=== PATIENT | male | born 1955 | race African-American/Black ===

== ENCOUNTER 2016-12-14 09:45 | Inpatient (IN) | payer OTHER ==
[2016-12-14] MEDS ORDERED: IPRATROPIUM/ALBUTEROL 0.5-2.5 MG/3 ML AMPUL NEB ONE (10:23)
[2016-12-14] MEDS ORDERED: METHYLPREDNISOLONE INJ 125 MG/2 ML SDV IV ONE (10:28)
[2016-12-14] MEDS ORDERED: NORMAL SALINE 1000 ML 1,000 ML IV ONE ×2 (10:28→14:13)
[2016-12-14 10:41] LABS: HEMATOCRIT 38.6 % (37.9-51.0); HEMOGLOBIN 13.1 g/dL (13.5-17.0); HGB HCT DIFFERENCE 0.7; MEAN CORPUSCULAR HEMOGLOBIN 33.2 pg (27.0-33.4); MEAN CORPUSCULAR HGB CONC 33.9 g/dL (32.0-36.0); MEAN CORPUSCULAR VOLUME 98 fl (80-97); RED BLOOD COUNT 3.95 10^6/uL (4.35-5.55); RED CELL DISTRIBUTION WIDTH 14.2 % (11.5-14.0); WHITE BLOOD COUNT 2.9 10^3/uL (4.0-10.5)
[2016-12-14 10:42] LABS: PROTHROMBIN TIME 13.8 SEC (11.4-15.4)
[2016-12-14 11:01] LABS: VENOUS BLOOD BASE EXCESS -2.3 mmol/L; VENOUS BLOOD HCO3 24.4 mmol/L (20-32); VENOUS BLOOD PH 7.32 (7.30-7.42)
[2016-12-14] MEDS ORDERED: NORMAL SALINE 1000 ML 1,000 ML IV PRN (11:16)
[2016-12-14] MEDS ORDERED: LEVOFLOXACIN 500 MG/D5W RTU 100 ML IV ONE (11:18)
[2016-12-14 11:22] LABS: ALANINE AMINOTRANSFERASE 27 U/L (21-72); ALBUMIN 3.5 g/dL (3.5-5.0); ALKALINE PHOSPHATASE 45 U/L (38-126); ASPARTATE AMINO TRANSFERASE 81 U/L (17-59); BILIRUBIN,TOTAL 0.6 mg/dL (0.2-1.3); BLOOD UREA NITROGEN 57 mg/dL (7-20); CARBON DIOXIDE 21 mmol/L (22-30); CHLORIDE 100 mmol/L (98-107); CREATINE KINASE 42 U/L (55-170); CREATININE RESULT 3.96 mg/dL (0.52-1.25); GLUCOSE 93 mg/dL (75-110); MAGNESIUM 1.5 mg/dL (1.6-2.3); POTASSIUM 4.7 mmol/L (3.6-5.0); SODIUM 140.9 mmol/L (137-145)
[2016-12-14 11:23] LABS: TROPONIN I < 0.012 ng/mL
[2016-12-14 11:24] LABS: TOTAL CELLS COUNTED 100
[2016-12-14 11:25] LABS: BAND NEUTROPHILS % (MANUAL) 22 % (3-5); BASOPHILS % (MANUAL) 0 % (0-2); LYMPHOCYTES % (MANUAL) 16 % (13-45)
[2016-12-14 11:26] LABS: ANION GAP 20 (5-19)
[2016-12-14 11:27] LABS: EOSINOPHILS % (MANUAL) 1 % (0-6)
[2016-12-14 11:30] LABS: PLATELET CLUMPS PRESENT; ROULEAUX SLIGHT; TOXIC GRANULATION 2+; TOXIC VACUOLATION PRESENT
[2016-12-14 11:31] LABS: POLYCHROMASIA SLIGHT
--- NOTE | 2016-12-14 11:52 | ER Document Report ---
ED General - General Chief Complaint: Shortness Of Breath Stated Complaint: CHEST PAIN TRAVEL OUTSIDE OF THE [place] IN LAST 30 DAYS: No - HPI Patient complains to provider of: short of breath chest pain Notes: Patient coming in for complaint short of breath and chest pain. Patient states short of breath the last 4 days. Denies fevers chills nausea vomiting states he is having a productive sputum. Patient doesn't do to still using marijuana and cocaine states cocaine use yesterday. Patient states chest pain substernal ongoing for the last few days well. Patient denies any recent antibiotics denies any recent travel. Patient states chest pain right-sided. Sputum yellow. No sick contacts. Patient increased respiratory rate hypoxic upon EMS arrival currently is on nonrebreather the tachycardia as well - Related Data Allergies/Adverse Reactions: No Known Allergies Allergy (Verified 09/11/16 00:56) Home Medications: Current Home Medications Albuterol Sulfate [Proair Respiclick] 1 puff IH Q4HP PRN 12/14/16 [History] Amlodipine Besylate [Norvasc 10 mg Tablet] 10 mg PO DAILY 12/14/16 [History] Folic Acid [Folvite 1 mg Tablet] 1 mg PO DAILY 12/14/16 [History] Ibuprofen [Motrin 600 mg Tablet] 600 mg PO TID 12/14/16 [History] Multivitamin [Multivitamins] 1 each PO DAILY 12/14/16 [History] Risperidone [Risperdal] 1 mg PO QHS 12/14/16 [History] Risperidone [Risperdal] 2 mg PO QAM 12/14/16 [History] Sertraline HCl [Zoloft] 50 mg PO QAM 12/14/16 [History] Thiamine HCl [Thiamine 100 mg Tablet] 100 mg PO DAILY 12/14/16 [History] Past Medical History - Social History Smoking Status: Smoker,Current Status Unk Family History: Reviewed & Not Pertinent - Past Medical History Cardiac Medical History: Reports: Hx Hypertension Neurological Medical History: Reports: Hx Cerebrovascular Accident Musculoskeltal Medical History: Reports Hx Gout Psychiatric Medical History: Reports: Hx Post Traumatic Stress Disorder Past Surgical History: Reports: Hx Orthopedic Surgery - shoulder, knee, ankle - Immunizations Immunizations up to date: Yes Hx Diphtheria, Pertussis, Tetanus Vaccination: Yes Review of Systems - Review of Systems Constitutional: No symptoms reported EENT: No symptoms reported Cardiovascular: Chest pain Respiratory: Cough, Short of breath, Wheezing Gastrointestinal: No symptoms reported Genitourinary: No symptoms reported Male Genitourinary: No symptoms reported Musculoskeletal: No symptoms reported Skin: No symptoms reported Hematologic/Lymphatic: No symptoms reported Neurological/Psychological: No symptoms reported -: Yes All other systems reviewed and negative Physical Exam - Vital signs Vitals: Resp Pulse Ox 36 H 89 L 12/14/16 09:57 12/14/16 09:57 Interpretation: Tachycardic, Hypoxic, Tachypneic - General General appearance: Appears well, Alert In distress: Moderate - HEENT Head: Normocephalic, Atraumatic Eyes: Normal Pupils: PERRL - Respiratory Respiratory status: Respiratory distress - mod Chest status: Nontender Breath sounds: Decreased air movement, Rhonchi Chest palpation: Normal - Cardiovascular Rhythm: Regular Heart sounds: Normal auscultation Murmur: No - Abdominal Inspection: Normal Distension: No distension Bowel sounds: Normal Tenderness: Nontender Organomegaly: No organomegaly - Back Back: Normal, Nontender - Extremities General upper extremity: Normal inspection, Nontender, Normal color, Normal ROM , Normal temperature General lower extremity: Normal inspection, Nontender, Normal color, Normal ROM , Normal temperature, Normal weight bearing - Neurological Neuro grossly intact: Yes Cognition: Normal Orientation: AAOx4 Reinier Coma Scale Eye Opening: Spontaneous Chase Coma Scale Verbal: Oriented Chase Coma Scale Motor: Obeys Commands Chase Coma Scale Total: 15 Speech: Normal Motor strength normal: LUE, RUE, LLE, RLE Sensory: Normal - Psychological Associated symptoms: Normal affect, Normal mood - Skin Skin Temperature: Warm Skin Moisture: Dry Skin Color: Normal Course - Re-evaluation Re-evalutation: 12/14/16 18:26 Patient arrived and restarted stress. We try to wean the patient off of a nonrebreather to nasal cannula however this was unsuccessful place patient on BiPAP. Patient's respiratory rate still continued to stay increased his VBG did not show much improvement therefore discussed with patient at bedside recommend intubation at this time for his sepsis and pneumonia. Intubation was performed without difficulty. After which patient did become very tachycardic hypertensive patient was started on a propofol drip given pain medications this was then transitioned to the visit as a pain drip patient did respond much better to this. Antibiotics were ordered Levaquin was started discussed with hospitalist. Hospital's adult other antibiotics patient will be admitted for further evaluation. - Vital Signs Vital signs: Temp Pulse Resp BP Pulse Ox 26 H 128/84 H 100 12/14/16 17:46 12/14/16 17:46 12/14/16 17:46 - Laboratory Result Diagrams: 12/14/16 10:05 12/14/16 10:05 Laboratory results interpreted by me: 12/14/16 12/14/16 12/14/16 10:05 10:05 10:05 WBC 2.9 L RBC 3.95 L Hgb 13.1 L MCV 98 H RDW 14.2 H Band Neutrophils % 22 H Metamyelocytes % 3 H Myelocytes % 1 H D-Dimer 3.90 H Carbonic Acid ABG pCO2 ABG pO2 ABG HCO3 ABG Total CO2 ABG O2 Saturation Carbon Dioxide 21 L Anion Gap 20 H BUN 57 H Creatinine 3.96 H Est GFR ( Amer) 19 L Est GFR (Non-Af Amer) 16 L Lactic Acid Magnesium 1.5 L AST 81 H Creatine Kinase 42 L 12/14/16 12/14/16 10:05 12:00 WBC RBC Hgb MCV RDW Band Neutrophils % Metamyelocytes % Myelocytes % D-Dimer Carbonic Acid 0.87 L ABG pCO2 28.8 L ABG pO2 41.9 L ABG HCO3 18.1 L ABG Total CO2 19.0 L ABG O2 Saturation 79.2 L Carbon Dioxide Anion Gap BUN Creatinine Est GFR ( Amer) Est GFR (Non-Af Amer) Lactic Acid 4.8 H Magnesium AST Creatine Kinase Procedures - Central Line Left Internal jugular Consent obtained: Yes - emergent verbal Central line pre-insertion: Sterile PPE donned, Chloraprep applied, Sterile drapes applied Central line lumen type: Triple Anesthetic type: 1% Lidocaine mL's of anesthesia: 2 Ultrasound guided: Yes CM at insertion site: 20 Line secured with sutures: Yes Central line post-insertion: Blood return from lumens, Biopatch applied, Sutured , Sterile dressing applied, Position confirmed w/ CXR Number of attempts: 1 Complications: No - Intubation Orotracheal Airway evaluation: Other - Missing jagged teeth Mallampati Classification: Class 2 Medications: Etomidate, Succinylcholine Intubation method: Orotracheal Blade size: 4 Equipment used: Glidescope ETT size: 8.0 ETT secured at (cm): 23 Breath Sounds after Intubation: Equal Ventilator settings: SIMV Tidal volume: 450 FiO2: 70 Respirations: 14 Pressure support: 10 PEEP: 5 Post Intubation Xray: Yes Intubation Complications: No complications Critical Care Note - Critical Care Note Total time excluding time spent on procedures (mins): 90 Comments: Time spent actively managing patient managing ventilator settings managing sedation drips inpatient with respiratory failure sepsis Discharge - Discharge Clinical Impression: History of cocaine abuse, Acute respiratory failure with hypoxia, Cocaine abuse Pneumonia Qualifiers: Pneumonia type: due to unspecified organism Laterality: right Lung location: lower lobe of lung Qualified Code(s): J18.1 - Lobar pneumonia, unspecified organism Sepsis Qualifiers: Sepsis type: sepsis due to unspecified organism Qualified Code(s): A41.9 - Sepsis, unspecified organism Acute renal failure Qualifiers: Acute renal failure type: unspecified Qualified Code(s): N17.9 - Acute kidney failure, unspecified Condition: Fair Disposition: ADMITTED INPATIENT [facility] Unit Admitted: ICU
[2016-12-14 12:46] LABS: ARTERIAL BLOOD BASE EXCESS -4.9 mmol/L; ARTERIAL BLOOD O2 SATURATION 79.2 % (94-98)
[2016-12-14] MEDS ORDERED: ALBUTEROL SULFATE 0.083% NEB 2.5 MG/3 ML AMPUL NEB PRN (13:15)
[2016-12-14] MEDS ORDERED: 1/2 NORMAL SALINE 1,000 ML IV PRN (13:15)
[2016-12-14] MEDS ORDERED: ETOMIDATE INJ/PF 20 MG/10 ML SDV IV ONE (13:26)
[2016-12-14] MEDS ORDERED: LORAZEPAM INJ 2 MG/1 ML VIAL ONE (13:29)
[2016-12-14] MEDS ORDERED: ACETAMINOPHEN 325 MG TABLET NG PRN (13:31)
[2016-12-14] MEDS ORDERED: PROPOFOL 100 ML IV ONE (13:32)
[2016-12-14] MEDS ORDERED: PROPOFOL 100 ML IV PRN (13:36)
--- NOTE | 2016-12-14 13:43 | EKG REPORT ---
SEVERITY:- BORDERLINE ECG - SINUS TACHYCARDIA LA ABNORMALITY : Confirmed by: Cirilo Smith MD 14-Dec-2016 13:43:18
[2016-12-14] MEDS ORDERED: PHARMACY COMMUNICATION ORDER MC NR (13:45)
[2016-12-14] MEDS ORDERED: MORPHINE SULFATE 10 MG/ML INJ ONE (13:54)
[2016-12-14 13:57] LABS: APPEARANCE,URINE SLIGHTLY-CLOUDY; BILIRUBIN,URINE NEGATIVE (NEGATIVE); GLUCOSE, URINE NEGATIVE (NEGATIVE); KETONES,URINE NEGATIVE (NEGATIVE); LEUKOCYTE ESTERASE,URINE NEGATIVE (NEGATIVE); NITRITE,URINE NEGATIVE (NEGATIVE); PROTEIN,URINE 100 mg/dL (NEGATIVE); URINE SPECIFIC GRAVITY 1.013; UROBILINOGEN,URINE NEGATIVE mg/dL (<2.0)
[2016-12-14] MEDS ORDERED: MORPHINE SULFATE 10 MG/ML INJ IV ONE ×2 (14:13→14:18)
[2016-12-14 14:36] LABS: URINE BARBITURATES SCREEN NEGATIVE; URINE METHADONE SCREEN NEGATIVE; URINE OPIATES LOW NEGATIVE; URINE PHENCYCLIDINE SCREEN NEGATIVE
[2016-12-14] MEDS ORDERED: ROCURONIUM BROMIDE INJ 50 MG/5 ML VIAL IV ONE (14:41)
[2016-12-14] MEDS: IPRATROPIUM/ALBUTEROL 0.5-2.5 MG/3 ML AMPUL NEB SCH ×2 (14:42→20:04)
[2016-12-14] MEDS ORDERED: LORAZEPAM INJ 2 MG/1 ML VIAL IV ONE (14:56)
[2016-12-14] MEDS ORDERED: FAMOTIDINE INJ/PF 20 MG/2 ML SDV IV ONE (15:00)
[2016-12-14 15:17] LABS: ARTERIAL BLOOD BASE EXCESS -10.5 mmol/L; ARTERIAL BLOOD O2 SATURATION 94.3 % (94-98)
[2016-12-14] MEDS ORDERED: MIDAZOLAM HCL 100 ML IV PRN (15:22)
--- NOTE | 2016-12-14 16:51 | PDOC H&P ---
History of Present Illness Admission Date/PCP: 12/14/16 13:15 Patient complains of: Shortness of breath and cough History of Present Illness: YOUSIF SULLIVAN is a 61 year old male patient of the [place] system who presents via EMS with a bout a 2 week history of worsening shortness of breath, cough productive of "cold" and general malaise. He also complains of right-sided chest pain sharp, stabbing in nature worsened with deep breath or cough, alleviated with certain positions and shallow breathing. He reports subjective fevers and chills at home. He denies sick contacts. He has not sought medical treatment for this until today. He denies nausea vomiting or diarrhea. Evaluation in the emergency department he was quite hypoxic on presentation, initially responded to BiPAP therapy, but ultimately fatigued and required urgent intubation and mechanical ventilation by the ER staff. He is currently sedated on a Versed drip and therefore review of systems and medical history is unobtainable from the patient at this time. Past Medical History Cardiac Medical History: Reports: Hypertension Musculoskeltal Medical History: Reports: Gout Psychiatric Medical History: Reports: Post Traumatic Stress Disorder Past Surgical History Past Surgical History: Reports: Orthopedic Surgery - shoulder, knee, ankle Social History Smoking Status: Current Every Day Smoker Frequency of Alcohol Use: Heavy - Reports last drink on Monday, admitted to 40 ounces of beer daily. Hx Recreational Drug Use: No - Advance Directive Resuscitation Status: Full Code Family History Family History: None - Unable to review due to sedation Parental Family History Reviewed: No - unable to review due to sedation Children Family History Reviewed: No Sibling(s) Family History Reviewed.: No Medication/Allergy Home Medications: Albuterol Sulfate [Proair Respiclick] 1 puff IH Q4HP PRN 12/14/16 Amlodipine Besylate [Norvasc 10 mg Tablet] 10 mg PO DAILY 12/14/16 Folic Acid [Folvite 1 mg Tablet] 1 mg PO DAILY 12/14/16 Ibuprofen [Motrin 600 mg Tablet] 600 mg PO TID 12/14/16 Multivitamin [Multivitamins] 1 each PO DAILY 12/14/16 Risperidone [Risperdal] 1 mg PO QHS 12/14/16 Risperidone [Risperdal] 2 mg PO QAM 12/14/16 Sertraline HCl [Zoloft] 50 mg PO QAM 12/14/16 Thiamine HCl [Thiamine 100 mg Tablet] 100 mg PO DAILY 12/14/16 Allergies/Adverse Reactions: No Known Allergies Allergy (Verified 09/11/16 00:56) Review of Systems ROS unobtainable: Due to endotracheal tube Physical Exam Vital Signs: Temp Pulse Resp BP Pulse Ox 18 118/74 99 12/14/16 16:16 12/14/16 16:16 12/14/16 16:16 PHYSICAL EXAM GENERAL: NAD; well developed, well nourished; no obese; lethargic but oriented to person, place, time, situation HEENT: normocephalic, atraumatic; EOMI, PERRLA, no conjunctival injection, no scleral icterus; oral mucosa moist, RESPIRATORY: Increased accessory muscle use, increased WOB, poor air entry bilaterally with absent breath sounds at the right base; no wheezes, rales, rhonchi; right greater than left inspiratory crackles CARDIO: no JVD; RRR; no systolic murmur; tachycardia VASCULAR: no carotid bruit; no abdominal bruit; no pallor; 2+ radial, DP pulse ; normal capillary refill GI: soft; nondistended; normal bowel sounds; no hepato spleno megaly; no rebound, rigidity, guarding; nontender NEURO: normal patella reflexes; EXTREMITIES: no calf tender; no palpable cords in calf; no clubbing, cyanosis , pedal edema PSYCH: Sedated SKIN: warm; moist; no petechiae; no telengectasias; no jaundice; no rash Results Laboratory Results: 12/14/16 12/14/16 12/14/16 13:35 15:00 15:50 Carbonic Acid 2.11 H HCO3/H2CO3 Ratio 9:1 ABG pH 7.09 L* ABG pCO2 70.2 H* ABG pO2 97.6 ABG HCO3 20.6 ABG O2 Saturation 94.3 ABG Base Excess -10.5 FiO2 80% Lactic Acid 4.4 H Urine Color YELLOW Urine Appearance SLIGHTLY-CLOUDY Urine pH 5.0 Ur Specific [place] 1.013 Urine Protein 100 H Urine Glucose (UA) NEGATIVE Urine Ketones NEGATIVE Urine Blood SMALL H Urine Nitrite NEGATIVE Ur Leukocyte Esterase NEGATIVE Urine WBC (Auto) 10 Urine RBC (Auto) 0 Labs reviewed. Acute renal failure with an elevated BUN/creatinine of 57 and 3.96, last one we have is within normal range. His lactic acid is elevated at 4.8. And his CBC shows a leukopenia with a WBC 2.9 and absolute neutrophil count of 2.2. His d-dimer is elevated at 3.9. Impressions: Chest X-Ray 12/14/16 15:00 IMPRESSION: Support apparatus as noted above. Other findings as noted above. Status: Image reviewed by me - Dense right lower lobe infiltrate, unclear if there is also a pleural effusion. Assessment & Plan - Diagnosis (1) Pneumonia Qualifiers: Pneumonia type: due to unspecified organism Laterality: right Lung location: lower lobe of lung Qualified Code(s): J18.1 - Lobar pneumonia, unspecified organism Is this a current diagnosis for this admission?: YesPlan: Admit the patient to the ICU for broad-spectrum antibiotic coverage with cefepime and Levaquin, he has no reported history of MRSA but can add vancomycin if his condition were to deteriorate further. Send tracheal aspirate for culture, follow up on blood cultures from the ER. (2) Acute respiratory failure with hypoxia Is this a current diagnosis for this admission?: YesPlan: Continue mechanical ventilation and adjust settings to match O2 demand and improve gas exchange, follow ABG. (3) Acute renal failure Qualifiers: Acute renal failure type: unspecified Qualified Code(s): N17.9 - Acute kidney failure, unspecified Is this a current diagnosis for this admission?: YesPlan: Likely prerenal. Will aggressively fluid resuscitate and trend his serum creatinine through the night. (4) Sepsis Qualifiers: Sepsis type: sepsis due to unspecified organism Qualified Code(s): A41.9 - Sepsis, unspecified organism Is this a current diagnosis for this admission?: YesPlan: Treatment with aggressive IV fluids and broad-spectrum antibiotics, add stress dose steroids for hypotension nonresponsive to fluids currently no evidence for shock. Trend H&H and transfuse as needed to prevent shock and keep hematocrit greater than 30. (5) Cocaine abuse Is this a current diagnosis for this admission?: YesPlan: History of chronic cocaine abuse. Will likely require higher than usual levels of sedation to maintain comfort, especially while intubated. - Time Time Spent: Greater than 70 Minutes Medications reviewed and adjusted accordingly: Yes - Inpatient Certification Medical Necessity: Failure to Improve With Outpatient Therapy, Need Close Monitoring Due to Risk of Patient Decompensation, Need For IV Fluids, Need for IV Antibiotics
[2016-12-14] MEDS ORDERED: CEFEPIME HCL 2 GM in DEXTROSE 5%-WATER 50 ML IV ONE (17:00)
[2016-12-14 17:22] LABS: ARTERIAL BLOOD BASE EXCESS -9.8 mmol/L; ARTERIAL BLOOD O2 SATURATION 98.7 % (94-98)
[2016-12-14] MEDS: MORPHINE SULFATE 10 MG/ML INJ IV PRN (17:56)
[2016-12-14] MEDS: 1/2 NORMAL SALINE 1,000 ML IV PRN ×2 (18:04→22:49)
[2016-12-14] MEDS ORDERED: SUCCINYLCHOLINE CHLORIDE INJ 200 MG/10 ML VIAL ONE (19:58)
[2016-12-14] MEDS: FAMOTIDINE INJ/PF 20 MG/2 ML SDV IV SCH (21:33)
[2016-12-14] MEDS ORDERED: GUAIFENESIN 600 MG TABLET.SA PO SCH (22:00)
[2016-12-14 22:14] LABS: HEMATOCRIT 30.6 % (37.9-51.0); HGB HCT DIFFERENCE 0.3; MEAN CORPUSCULAR HEMOGLOBIN 32.9 pg (27.0-33.4); MEAN CORPUSCULAR HGB CONC 33.8 g/dL (32.0-36.0); MEAN CORPUSCULAR VOLUME 98 fl (80-97); RED BLOOD COUNT 3.14 10^6/uL (4.35-5.55); RED CELL DISTRIBUTION WIDTH 13.9 % (11.5-14.0); WHITE BLOOD COUNT 4.5 10^3/uL (4.0-10.5)
[2016-12-14 22:25] LABS: HEMOGLOBIN 10.3 g/dL (13.5-17.0)
[2016-12-14 22:36] LABS: BAND NEUTROPHILS % (MANUAL) 18 % (3-5); BASOPHILS % (MANUAL) 0 % (0-2); EOSINOPHILS % (MANUAL) 1 % (0-6); LYMPHOCYTES % (MANUAL) 4 % (13-45); TOTAL CELLS COUNTED 100
[2016-12-14 22:37] LABS: TOXIC GRANULATION SLIGHT
[2016-12-14 22:39] LABS: POLYCHROMASIA SLIGHT; ROULEAUX SLIGHT
[2016-12-14] MEDS: MIDAZOLAM HCL 100 ML IV PRN (22:49)
[2016-12-14] MEDS ORDERED: INFLUENZA ADLT QUAD (36MOS+) 2016-17 VAC 0.5 ML SYR IM PRN (23:48)
[2016-12-15 00:05] LABS: ALANINE AMINOTRANSFERASE 55 U/L (21-72); ALBUMIN 2.5 g/dL (3.5-5.0); ALKALINE PHOSPHATASE 33 U/L (38-126); ANION GAP 15 (5-19); ASPARTATE AMINO TRANSFERASE 111 U/L (17-59); BILIRUBIN,TOTAL 0.3 mg/dL (0.2-1.3); BLOOD UREA NITROGEN 47 mg/dL (7-20); CALCIUM 7.2 mg/dL (8.4-10.2); CARBON DIOXIDE 17 mmol/L (22-30); CHLORIDE 105 mmol/L (98-107); CREATININE RESULT 2.73 mg/dL (0.52-1.25); GLUCOSE 187 mg/dL (75-110); POTASSIUM 4.3 mmol/L (3.6-5.0); SODIUM 137.1 mmol/L (137-145); TOTAL PROTEIN 5.4 g/dL (6.3-8.2)
[2016-12-15 00:21] LABS: ARTERIAL BLOOD BASE EXCESS -6.9 mmol/L; ARTERIAL BLOOD O2 SATURATION 97.2 % (94-98)
[2016-12-15] MEDS: IPRATROPIUM/ALBUTEROL 0.5-2.5 MG/3 ML AMPUL NEB SCH ×4 (01:55→19:59)
[2016-12-15] MEDS: MIDAZOLAM HCL 100 ML IV PRN ×3 (02:30→19:50)
[2016-12-15] MEDS: 1/2 NORMAL SALINE 1,000 ML IV PRN ×3 (03:59→22:36)
[2016-12-15 05:23] LABS: ARTERIAL BLOOD BASE EXCESS -5.2 mmol/L; ARTERIAL BLOOD O2 SATURATION 94.5 % (94-98); HEMATOCRIT 27.8 % (37.9-51.0); HEMOGLOBIN 9.7 g/dL (13.5-17.0); HGB HCT DIFFERENCE 1.3; MEAN CORPUSCULAR HEMOGLOBIN 33.5 pg (27.0-33.4); MEAN CORPUSCULAR HGB CONC 34.7 g/dL (32.0-36.0); MEAN CORPUSCULAR VOLUME 96 fl (80-97); RED BLOOD COUNT 2.89 10^6/uL (4.35-5.55); RED CELL DISTRIBUTION WIDTH 13.8 % (11.5-14.0); WHITE BLOOD COUNT 5.9 10^3/uL (4.0-10.5)
[2016-12-15 05:35] LABS: ALANINE AMINOTRANSFERASE 58 U/L (21-72); ALBUMIN 2.1 g/dL (3.5-5.0); ALKALINE PHOSPHATASE 33 U/L (38-126); ANION GAP 12 (5-19); ASPARTATE AMINO TRANSFERASE 94 U/L (17-59); BILIRUBIN,TOTAL 0.2 mg/dL (0.2-1.3); BLOOD UREA NITROGEN 47 mg/dL (7-20); CARBON DIOXIDE 19 mmol/L (22-30); CHLORIDE 106 mmol/L (98-107); CREATININE RESULT 2.41 mg/dL (0.52-1.25); GLUCOSE 138 mg/dL (75-110); POTASSIUM 3.9 mmol/L (3.6-5.0); SODIUM 137.4 mmol/L (137-145); TOTAL PROTEIN 5.1 g/dL (6.3-8.2)
[2016-12-15 06:14] LABS: BAND NEUTROPHILS % (MANUAL) 20 % (3-5); BASOPHILS % (MANUAL) 0 % (0-2); EOSINOPHILS % (MANUAL) 0 % (0-6); LYMPHOCYTES % (MANUAL) 9 % (13-45); TOTAL CELLS COUNTED 100; TOXIC GRANULATION 1+
[2016-12-15 06:15] LABS: RBC MORPHOLOGY COMMENT NORMO-CYTIC/CHROMIC; TOXIC VACUOLATION PRESENT
[2016-12-15] MEDS: ENOXAPARIN SODIUM INJ 40 MG/0.4 ML DISP.SYRIN SUBCUT SCH (09:13)
[2016-12-15] MEDS: FAMOTIDINE INJ/PF 20 MG/2 ML SDV IV SCH ×2 (09:14→21:04)
[2016-12-15] MEDS ORDERED: LEVOFLOXACIN 750 MG/D5W RTU 150 ML IV SCH (10:00)
[2016-12-15] MEDS: MORPHINE SULFATE 10 MG/ML INJ IV PRN ×2 (11:13→16:21)
[2016-12-15 13:08] LABS: PATH REVIEW PATHOLOGIST REVIEWED
[2016-12-15] MEDS ORDERED: VANCOMYCIN HCL 0 MG in DEXTROSE 5%-WATER 250 ML IV NR (14:45)
[2016-12-15] MEDS ORDERED: CALCIUM GLUCONATE 1,000 MG in DEXTROSE 5%-WATER 50 ML IV ONE (14:48)
--- NOTE | 2016-12-15 14:54 | PDOC PROGRESS REPORT ---
Subjective Progress Note for:: 12/15/16 Subjective:: History of present illness: "YOUSIF SULLIVAN is a 61 year old male patient of the [place] system who presents via EMS with a bout a 2 week history of worsening shortness of breath, cough productive of "cold" and general malaise. He also complains of right-sided chest pain sharp, stabbing in nature worsened with deep breath or cough, alleviated with certain positions and shallow breathing. He reports subjective fevers and chills at home. He denies sick contacts. He has not sought medical treatment for this until today. He denies nausea vomiting or diarrhea. Evaluation in the emergency department he was quite hypoxic on presentation, initially responded to BiPAP therapy, but ultimately fatigued and required urgent intubation and mechanical ventilation by the ER staff. He is currently sedated on a Versed drip and therefore review of systems and medical history is unobtainable from the patient at this time." His initial blood cultures are showing gram-positive cocci in chains 2 out of 2. Reason for visit: Follow-up pneumonia and respiratory failure Subjective: Patient remains intubated and sedated and unable to participate in his exam or review of systems. No new events overnight reported by nursing staff. He is easily agitated and is requiring escalating doses of Versed drip now up to 15 mg per hour. He is coughing and respiratory therapy is suctioning thick yellow-hernandez secretions. Overall seems to be tolerating the ventilator at its current settings with good improvement in his arterial blood gas with pH of 7.41, PCO2 down to 31, PO2 up to 71. ROS: Unobtainable Physical Exam Vital Signs: Temp Pulse Resp BP Pulse Ox 100.7 F H 93 20 110/69 98 12/15/16 12:00 12/15/16 14:16 12/15/16 14:16 12/15/16 14:00 12/15/16 14:16 Intake & Output 12/14/16 12/15/16 12/16/16 06:59 06:59 06:59 Intake Total 1786 Output Total 1700 700 Balance 86 -700 Weight 73.5 kg PHYSICAL EXAM GENERAL: Sedated; well developed, well nourished; no obese; HEENT: normocephalic, atraumatic; EOMI, PERRLA, no conjunctival injection, no scleral icterus; oral mucosa moist, RESPIRATORY: Resting comfortably on the vent, no increased WOB, poor air entry bilaterally with absent breath sounds at the right base; no wheezes, rales, rhonchi; right greater than left inspiratory crackles persist CARDIO: no JVD; RRR; no systolic murmur; tachycardia VASCULAR: no carotid bruit; no abdominal bruit; no pallor; 2+ radial, DP pulse ; normal capillary refill GI: soft; nondistended; normal bowel sounds; no hepato spleno megaly; no rebound, rigidity, guarding; no grimace on palpation. NEURO: normal patella reflexes; EXTREMITIES: no palpable cords in calf; no clubbing, cyanosis; trace pedal edema PSYCH: Sedated SKIN: warm; moist; no petechiae; no telengectasias; no jaundice; no rash Results Laboratory Results: 12/15/16 04:57 12/15/16 04:57 12/14/16 12/14/16 12/14/16 15:00 15:50 17:17 WBC RBC Hgb Hct MCV MCH MCHC RDW Plt Count Seg Neutrophils % Lymphocytes % Monocytes % Eosinophils % Basophils % Absolute Neutrophils Absolute Lymphocytes Absolute Monocytes Absolute Eosinophils Absolute Basophils Carbonic Acid 2.11 H 1.16 HCO3/H2CO3 Ratio 9:1 14:1 ABG pH 7.09 L* 7.25 L ABG pCO2 70.2 H* 38.5 ABG pO2 97.6 152.4 H ABG HCO3 20.6 16.6 L ABG O2 Saturation 94.3 98.7 H ABG Base Excess -10.5 -9.8 FiO2 80% 80% Sodium Potassium Chloride Carbon Dioxide Anion Gap BUN Creatinine Est GFR ( Amer) Est GFR (Non-Af Amer) Glucose Lactic Acid 4.4 H Calcium Total Bilirubin AST ALT Alkaline Phosphatase Total Protein Albumin 12/14/16 12/14/16 12/15/16 22:00 22:11 00:00 WBC 4.5 RBC 3.14 L Hgb 10.3 L D Hct 30.6 L MCV 98 H MCH 32.9 MCHC 33.8 RDW 13.9 Plt Count 127 L Seg Neutrophils % Not Reportable Lymphocytes % Not Reportable Monocytes % Not Reportable Eosinophils % Not Reportable Basophils % Not Reportable Absolute Neutrophils Not Reportable Absolute Lymphocytes Not Reportable Absolute Monocytes Not Reportable Absolute Eosinophils Not Reportable Absolute Basophils Not Reportable Carbonic Acid 0.98 L HCO3/H2CO3 Ratio 18:1 ABG pH 7.35 ABG pCO2 32.7 L ABG pO2 97.0 ABG HCO3 17.8 L ABG O2 Saturation 97.2 ABG Base Excess -6.9 FiO2 40% Sodium 137.1 Potassium 4.3 Chloride 105 Carbon Dioxide 17 L Anion Gap 15 BUN 47 H Creatinine 2.73 H Est GFR ( Amer) 29 L Est GFR (Non-Af Amer) 24 L Glucose 187 H Lactic Acid Calcium 7.2 L Total Bilirubin 0.3 AST 111 H ALT 55 Alkaline Phosphatase 33 L Total Protein 5.4 L Albumin 2.5 L 12/15/16 12/15/16 12/15/16 04:57 04:57 04:57 WBC 5.9 RBC 2.89 L Hgb 9.7 L Hct 27.8 L MCV 96 MCH 33.5 H MCHC 34.7 RDW 13.8 Plt Count 128 L Seg Neutrophils % Not Reportable Lymphocytes % Not Reportable Monocytes % Not Reportable Eosinophils % Not Reportable Basophils % Not Reportable Absolute Neutrophils Not Reportable Absolute Lymphocytes Not Reportable Absolute Monocytes Not Reportable Absolute Eosinophils Not Reportable Absolute Basophils Not Reportable Carbonic Acid 0.91 L HCO3/H2CO3 Ratio 20:1 ABG pH 7.41 ABG pCO2 30.2 L ABG pO2 70.5 L ABG HCO3 18.5 L ABG O2 Saturation 94.5 ABG Base Excess -5.2 FiO2 30% Sodium 137.4 Potassium 3.9 Chloride 106 Carbon Dioxide 19 L Anion Gap 12 BUN 47 H Creatinine 2.41 H Est GFR ( Amer) 33 L Est GFR (Non-Af Amer) 28 L Glucose 138 H Lactic Acid Calcium 7.0 L* Total Bilirubin 0.2 AST 94 H ALT 58 Alkaline Phosphatase 33 L Total Protein 5.1 L Albumin 2.1 L Labs reviewed. ABG shows improving trend. CBC shows a dilutional anemia but is overall improved. His serum creatinine is improved to 2.4. Lucio electrolytes are stable though his calcium is low at 7.0 his albumin is 2.1. Impressions: Abdomen Ultrasound 12/14/16 00:00 IMPRESSION: No acute biliary findings. Trace free fluid around the inferior pole of the right kidney, uncertain significance. PANCREAS PARTIALLY OBSCURED BY GAS. KUB X-Ray 12/14/16 13:38 IMPRESSION: Nasogastric tube tip in the stomach. Chest X-Ray 12/15/16 06:00 IMPRESSION: IMPROVED AERATION WITH DECREASE IN THE RIGHT LOWER LOBE INFILTRATE. Status: Image reviewed by me - Chest x-ray seems improved. Assessment & Plan - Diagnosis (1) Pneumonia Qualifiers: Pneumonia type: due to unspecified organism Laterality: right Lung location: lower lobe of lung Qualified Code(s): J18.1 - Lobar pneumonia, unspecified organism Is this a current diagnosis for this admission?: YesPlan: Continue care in the ICU with broad-spectrum antibiotic coverage with cefepime and Levaquin, he has no reported history of MRSA but will add vancomycin S blood cultures from the ER show gram-positive cocci in 2 out of 2 bottles. Send tracheal aspirate for culture, (2) Acute respiratory failure with hypoxia Is this a current diagnosis for this admission?: YesPlan: Continue mechanical ventilation and adjust settings to match O2 demand and improve gas exchange, follow ABG. Daily weaning trials starting in the morning. (3) Acute renal failure Qualifiers: Acute renal failure type: unspecified Qualified Code(s): N17.9 - Acute kidney failure, unspecified Is this a current diagnosis for this admission?: YesPlan: Likely prerenal. Continue fluid resuscitation and trend his serum creatinine through the night. (4) Sepsis Qualifiers: Sepsis type: sepsis due to unspecified organism Qualified Code(s): A41.9 - Sepsis, unspecified organism Is this a current diagnosis for this admission?: YesPlan: Treatment with aggressive IV fluids and broad-spectrum antibiotics, add stress dose steroids for hypotension nonresponsive to fluids currently no evidence for shock. Trend H&H and transfuse as needed to prevent shock and keep hematocrit greater than 30. (5) Cocaine abuse Is this a current diagnosis for this admission?: YesPlan: History of chronic cocaine abuse and tested positive again. Will likely require higher than usual levels of sedation to maintain comfort, especially while intubated. (6) Bacteremia Is this a current diagnosis for this admission?: YesPlan: As above - Time Time Spent with patient: 35 or more minutes
[2016-12-15] MEDS ORDERED: CALCIUM GLUCONATE 1000 MG/10 ML INJ IV ONE (15:15)
[2016-12-15] MEDS ORDERED: CEFEPIME 2 GM/D5W RTU 2 GM/50 ML RTUPB IV SCH (18:00)
[2016-12-15] MEDS ORDERED: VANCOMYCIN HCL 1,000 MG in DEXTROSE 5%-WATER 250 ML IV SCH (18:00)
[2016-12-16] MEDS: MIDAZOLAM HCL 100 ML IV PRN ×5 (00:05→22:46)
[2016-12-16] MEDS: IPRATROPIUM/ALBUTEROL 0.5-2.5 MG/3 ML AMPUL NEB SCH ×4 (01:26→19:56)
[2016-12-16] MEDS: 1/2 NORMAL SALINE 1,000 ML IV PRN ×3 (04:09→22:05)
[2016-12-16] MEDS: MORPHINE SULFATE 10 MG/ML INJ IV PRN ×3 (05:56→22:04)
[2016-12-16 06:44] LABS: HEMATOCRIT 27.8 % (37.9-51.0); HEMOGLOBIN 9.3 g/dL (13.5-17.0); HGB HCT DIFFERENCE 0.1; MEAN CORPUSCULAR HEMOGLOBIN 32.3 pg (27.0-33.4); MEAN CORPUSCULAR HGB CONC 33.6 g/dL (32.0-36.0); MEAN CORPUSCULAR VOLUME 96 fl (80-97); RED BLOOD COUNT 2.89 10^6/uL (4.35-5.55); RED CELL DISTRIBUTION WIDTH 14.6 % (11.5-14.0)
[2016-12-16 06:55] LABS: ALANINE AMINOTRANSFERASE 54 U/L (21-72); ALKALINE PHOSPHATASE 37 U/L (38-126); ANION GAP 9 (5-19); ASPARTATE AMINO TRANSFERASE 70 U/L (17-59); BILIRUBIN,TOTAL 0.2 mg/dL (0.2-1.3); BLOOD UREA NITROGEN 40 mg/dL (7-20); CALCIUM 7.9 mg/dL (8.4-10.2); CARBON DIOXIDE 20 mmol/L (22-30); CHLORIDE 108 mmol/L (98-107); CREATININE RESULT 1.76 mg/dL (0.52-1.25); GLUCOSE 97 mg/dL (75-110); MAGNESIUM 2.2 mg/dL (1.6-2.3); PHOSPHORUS 4.6 mg/dL (2.5-4.5); POTASSIUM 4.3 mmol/L (3.6-5.0); SODIUM 136.9 mmol/L (137-145); TOTAL PROTEIN 5.4 g/dL (6.3-8.2)
[2016-12-16 07:23] LABS: BAND NEUTROPHILS % (MANUAL) 2 % (3-5); BASOPHILS % (MANUAL) 0 % (0-2); EOSINOPHILS % (MANUAL) 0 % (0-6); LYMPHOCYTES % (MANUAL) 5 % (13-45); NUCLEATED RED BLOOD CELLS 1 /100 WBC (0); TOTAL CELLS COUNTED 100
[2016-12-16 07:24] LABS: ANISOCYTOSIS SLIGHT; TOXIC GRANULATION 1+
[2016-12-16] MEDS: ENOXAPARIN SODIUM INJ 40 MG/0.4 ML DISP.SYRIN SUBCUT SCH (08:22)
[2016-12-16] MEDS: FAMOTIDINE INJ/PF 20 MG/2 ML SDV IV SCH ×2 (09:10→22:04)
[2016-12-16] MEDS ORDERED: LEVOFLOXACIN 750 MG/D5W RTU 750 MG/150 ML RTUPB IV SCH (10:00)
--- NOTE | 2016-12-16 12:14 | PDOC PROGRESS REPORT ---
Subjective Progress Note for:: 12/16/16 Subjective:: History of present illness: "YOUSIF SULLIVAN is a 61 year old male patient of the [facility] who presents via EMS with a bout a 2 week history of worsening shortness of breath, cough productive of "cold" and general malaise. He also complains of right-sided chest pain sharp, stabbing in nature worsened with deep breath or cough, alleviated with certain positions and shallow breathing. He reports subjective fevers and chills at home. He denies sick contacts. He has not sought medical treatment for this until today. He denies nausea vomiting or diarrhea. Evaluation in the emergency department he was quite hypoxic on presentation, initially responded to BiPAP therapy, but ultimately fatigued and required urgent intubation and mechanical ventilation by the ER staff. He is currently sedated on a Versed drip and therefore review of systems and medical history is unobtainable from the patient at this time." His initial blood cultures are showing gram-positive cocci in chains 2 out of 2. Follow-up cultures are pending. He is coughing and respiratory therapy is suctioning thick yellow-hernandez secretions. Reason for visit: Follow-up pneumonia and respiratory failure Subjective: Patient remains intubated and sedated and unable to participate in his exam or review of systems. Staff reports the patient became agitated during the night and in spite of her set at 15 mg per hour set upright in bed and was trying to communicate with them. A dose of morphine helped settle him down and he seems to be much more comfortable this morning. ROS: Unobtainable Physical Exam Vital Signs: Temp Pulse Resp BP Pulse Ox 98.2 F 78 17 128/76 H 97 12/16/16 09:00 12/16/16 09:12 12/16/16 09:12 12/16/16 09:00 12/16/16 09:20 Intake & Output 12/15/16 12/16/16 12/17/16 06:59 06:59 06:59 Intake Total 1786 6485 Output Total 1700 3240 45 Balance 86 -175 -45 Weight 73.5 kg 74.1 kg PHYSICAL EXAM GENERAL: Sedated; well developed, well nourished; no obese; HEENT: normocephalic, atraumatic; EOMI, PERRLA, no conjunctival injection, no scleral icterus; oral mucosa moist, RESPIRATORY: Resting comfortably on the vent, no increased WOB, poor air entry bilaterally with rales at the right base; no wheezes or rhonchi; right greater than left inspiratory crackles persist to mid lung field CARDIO: no JVD; RRR; no systolic murmur; no tachycardia- improved with Versed VASCULAR: no carotid bruit; no abdominal bruit; no pallor; 2+ radial, DP pulse ; normal capillary refill GI: soft; nondistended; normal bowel sounds; no hepato spleno megaly; no rebound, rigidity, guarding; no grimace on palpation. NEURO: normal patella reflexes; EXTREMITIES: no palpable cords in calf; no clubbing, cyanosis; trace pedal edema PSYCH: Sedated SKIN: warm; moist; no petechiae; no telengectasias; no jaundice; no rash Results Laboratory Results: 12/16/16 06:21 12/16/16 06:21 12/16/16 12/16/16 06:21 06:21 WBC 11.0 H RBC 2.89 L Hgb 9.3 L Hct 27.8 L MCV 96 MCH 32.3 MCHC 33.6 RDW 14.6 H Plt Count 119 L Seg Neutrophils % Not Reportable Lymphocytes % Not Reportable Monocytes % Not Reportable Eosinophils % Not Reportable Basophils % Not Reportable Absolute Neutrophils Not Reportable Absolute Lymphocytes Not Reportable Absolute Monocytes Not Reportable Absolute Eosinophils Not Reportable Absolute Basophils Not Reportable Sodium 136.9 L Potassium 4.3 Chloride 108 H Carbon Dioxide 20 L Anion Gap 9 BUN 40 H Creatinine 1.76 H Est GFR ( Amer) 48 L Est GFR (Non-Af Amer) 40 L Glucose 97 Calcium 7.9 L Phosphorus 4.6 H Magnesium 2.2 Total Bilirubin 0.2 AST 70 H ALT 54 Alkaline Phosphatase 37 L Total Protein 5.4 L Albumin 2.0 L 12/14/16 13:35 Clean Catch Midstream Urine Culture - Final NO GROWTH 2 DAYS 12/14/16 14:50 Sputum Gram Stain - Final Labs reviewed, WBCs are rising, H&H is holding, platelets trending down slightly. Arterial blood gas doesn't really correlate with itself or findings in that his PO2 is only 71 but his oxygen saturation is 95% and on monitor he is 98% but his pH has normalized to 7.4 his PCO2 is down to 30 and his bicarbonate is holding at around 18. Furthermore his renal function continues to improve like lites are otherwise stable, LFTs are improved Assessment & Plan - Diagnosis (1) Pneumonia Qualifiers: Pneumonia type: due to unspecified organism Laterality: right Lung location: lower lobe of lung Qualified Code(s): J18.1 - Lobar pneumonia, unspecified organism Is this a current diagnosis for this admission?: YesPlan: Continue care in the ICU with broad-spectrum antibiotic coverage with cefepime and Levaquin, he has no reported history of MRSA but will add vancomycin due to blood cultures from the ER show gram-positive cocci in 2 out of 2 bottles. tracheal aspirate culture shows heavy growth of strep pneumoniae. Repeat blood cultures to confirm clearing. (2) Acute respiratory failure with hypoxia Is this a current diagnosis for this admission?: YesPlan: Continue mechanical ventilation and adjust settings to match O2 demand and improve gas exchange, follow ABG. Daily weaning trials starting today. Start tube feeds if unable to wean today. (3) Acute renal failure Qualifiers: Acute renal failure type: unspecified Qualified Code(s): N17.9 - Acute kidney failure, unspecified Is this a current diagnosis for this admission?: YesPlan: Improved. Likely prerenal. Continue fluid resuscitation. (4) Sepsis Qualifiers: Sepsis type: sepsis due to unspecified organism Qualified Code(s): A41.9 - Sepsis, unspecified organism Is this a current diagnosis for this admission?: YesPlan: Improved. Treatment with aggressive IV fluids and broad-spectrum antibiotics, add stress dose steroids for hypotension nonresponsive to fluids currently no evidence for shock. Trend H&H and transfuse as needed to prevent shock and keep hematocrit greater than 30. (5) Cocaine abuse Is this a current diagnosis for this admission?: YesPlan: History of chronic cocaine abuse and tested positive again. Will likely require higher than usual levels of sedation to maintain comfort, especially while intubated. (6) Bacteremia Is this a current diagnosis for this admission?: YesPlan: As above. Likely the same strep found on sputum sample. We'll need to weeks of antibiotics from the date of first clear blood culture. - Time Time Spent with patient: 35 or more minutes - Plan Summary Plan Summary: Patient receives his care from the [facility] our medical secretary receptionist is out of commission due to illness, if he fails to improve or cannot wean from the ventilator will require transfer to a tertiary care center with available pulmonary procurement specialist.
[2016-12-16] MEDS ORDERED: VANCOMYCIN HCL 1,000 MG in DEXTROSE 5%-WATER 250 ML IV SCH (16:00)
[2016-12-16] MEDS ORDERED: CEFEPIME HCL 2 GM in DEXTROSE 5%-WATER 50 ML IV SCH (18:00)
[2016-12-16] MEDS: VANCOMYCIN HCL 500 MG in DEXTROSE 5%-WATER 100 ML IV SCH (18:06)
[2016-12-17] MEDS: MIDAZOLAM HCL 100 ML IV PRN ×4 (02:12→19:01)
[2016-12-17] MEDS: IPRATROPIUM/ALBUTEROL 0.5-2.5 MG/3 ML AMPUL NEB SCH ×4 (02:29→20:39)
[2016-12-17] MEDS: MORPHINE SULFATE 10 MG/ML INJ IV PRN ×2 (03:27→20:04)
[2016-12-17 05:57] LABS: ARTERIAL BLOOD BASE EXCESS -6.4 mmol/L; ARTERIAL BLOOD O2 SATURATION 94.4 % (94-98)
[2016-12-17 06:00] LABS: HEMATOCRIT 26.9 % (37.9-51.0); HEMOGLOBIN 9.1 g/dL (13.5-17.0); HGB HCT DIFFERENCE 0.4; MEAN CORPUSCULAR HEMOGLOBIN 32.4 pg (27.0-33.4); MEAN CORPUSCULAR HGB CONC 33.7 g/dL (32.0-36.0); MEAN CORPUSCULAR VOLUME 96 fl (80-97); RED BLOOD COUNT 2.79 10^6/uL (4.35-5.55); RED CELL DISTRIBUTION WIDTH 14.3 % (11.5-14.0); WHITE BLOOD COUNT 11.3 10^3/uL (4.0-10.5)
[2016-12-17] MEDS: VANCOMYCIN HCL 500 MG in DEXTROSE 5%-WATER 100 ML IV SCH (06:04)
[2016-12-17 06:14] LABS: ALANINE AMINOTRANSFERASE 54 U/L (21-72); ALKALINE PHOSPHATASE 37 U/L (38-126); ANION GAP 8 (5-19); ASPARTATE AMINO TRANSFERASE 46 U/L (17-59); BILIRUBIN,TOTAL 0.1 mg/dL (0.2-1.3); BLOOD UREA NITROGEN 35 mg/dL (7-20); CALCIUM 8.3 mg/dL (8.4-10.2); CARBON DIOXIDE 20 mmol/L (22-30); CHLORIDE 110 mmol/L (98-107); GLUCOSE 84 mg/dL (75-110); MAGNESIUM 2.2 mg/dL (1.6-2.3); PHOSPHORUS 3.7 mg/dL (2.5-4.5); SODIUM 137.9 mmol/L (137-145); TOTAL PROTEIN 5.2 g/dL (6.3-8.2)
[2016-12-17 06:18] LABS: BAND NEUTROPHILS % (MANUAL) 3 % (3-5); BASOPHILS % (MANUAL) 0 % (0-2); EOSINOPHILS % (MANUAL) 0 % (0-6); LYMPHOCYTES % (MANUAL) 5 % (13-45); TOTAL CELLS COUNTED 100
[2016-12-17 06:20] LABS: ANISOCYTOSIS SLIGHT; TOXIC GRANULATION 1+
[2016-12-17] MEDS: ENOXAPARIN SODIUM INJ 40 MG/0.4 ML DISP.SYRIN SUBCUT SCH (09:36)
[2016-12-17] MEDS: 1/2 NORMAL SALINE 1,000 ML IV PRN ×2 (09:37→20:05)
[2016-12-17] MEDS: FAMOTIDINE INJ/PF 20 MG/2 ML SDV IV SCH ×2 (09:37→22:25)
[2016-12-17] MEDS ORDERED: ALTEPLASE INJ 2 MG VIAL (CATH CLEARANCE) IV ONE (11:30)
--- NOTE | 2016-12-17 11:37 | PDOC PROGRESS REPORT ---
Subjective Progress Note for:: 12/17/16 Physical Exam Vital Signs: Temp Pulse Resp BP Pulse Ox 99.1 F 74 10 L 113/66 95 12/17/16 10:06 12/17/16 09:00 12/17/16 10:06 12/17/16 10:06 12/17/16 10:06 Intake & Output 12/16/16 12/17/16 12/18/16 06:59 06:59 06:59 Intake Total 2455 3044 Output Total 2630 8095 370 Balance -175 119 -370 Weight 74.1 kg 75.1 kg PHYSICAL EXAM GENERAL: Sedated; well developed, well nourished; no obese; HEENT: normocephalic, atraumatic; PERRLA, no conjunctival injection, no scleral icterus; oral mucosa moist, ETT in good position, trachea midline RESPIRATORY: Resting comfortably on the vent, no increased WOB, improved air entry bilaterally with rales at the right base; no wheezes or rhonchi; improving right greater than left inspiratory crackles persist to mid lung field CARDIO: no JVD; RRR; no systolic murmur; no tachycardia- improved with Versed VASCULAR: no carotid bruit; no abdominal bruit; no pallor; 2+ radial, DP pulse ; normal capillary refill GI: soft; nondistended; normal bowel sounds; no hepato spleno megaly; no rebound, rigidity, guarding; no grimace on palpation. OG tube in place, tube feed running NEURO: normal patella reflexes; EXTREMITIES: no palpable cords in calf; no clubbing, cyanosis; trace pedal edema PSYCH: Sedated but is very restless at attempts to wean his sedation SKIN: warm; moist; no petechiae; no telengectasias; no jaundice; no rash Results Laboratory Results: 12/17/16 05:35 12/17/16 05:35 12/17/16 12/17/16 12/17/16 05:35 05:35 05:35 WBC 11.3 H RBC 2.79 L Hgb 9.1 L Hct 26.9 L MCV 96 MCH 32.4 MCHC 33.7 RDW 14.3 H Plt Count 132 L Seg Neutrophils % Not Reportable Lymphocytes % Not Reportable Monocytes % Not Reportable Eosinophils % Not Reportable Basophils % Not Reportable Absolute Neutrophils Not Reportable Absolute Lymphocytes Not Reportable Absolute Monocytes Not Reportable Absolute Eosinophils Not Reportable Absolute Basophils Not Reportable Carbonic Acid 1.15 HCO3/H2CO3 Ratio 16:1 ABG pH 7.32 L ABG pCO2 38.2 ABG pO2 76.6 L ABG HCO3 19.2 L ABG O2 Saturation 94.4 ABG Base Excess -6.4 FiO2 30% Sodium 137.9 Potassium 4.0 Chloride 110 H Carbon Dioxide 20 L Anion Gap 8 BUN 35 H Creatinine 1.60 H Est GFR ( Amer) 54 L Est GFR (Non-Af Amer) 44 L Glucose 84 Calcium 8.3 L Phosphorus 3.7 Magnesium 2.2 Total Bilirubin 0.1 L AST 46 ALT 54 Alkaline Phosphatase 37 L Total Protein 5.2 L Albumin 2.0 L 12/14/16 13:35 Clean Catch Midstream Urine Culture - Final NO GROWTH 2 DAYS 12/14/16 14:50 Sputum Gram Stain - Final Labs reviewed, electrolytes and renal function improving, LFTs stable, arterial blood gas shows appropriate response to current vent settings, CBC is unremarkable Impressions: Chest X-Ray 12/17/16 06:00 IMPRESSION: 1. Support tubes and lines as above 2. Increased haziness at the right lung base which could represent layering effusion with associated atelectasis/infiltrate. SUPPORT DEVICE(S) IN EXPECTED LOCATIONS. Status: Image reviewed by me - Chest x-ray reviewed and shows improving airspace disease Assessment & Plan - Diagnosis (1) Pneumonia Qualifiers: Pneumonia type: due to unspecified organism Laterality: right Lung location: lower lobe of lung Qualified Code(s): J18.1 - Lobar pneumonia, unspecified organism Is this a current diagnosis for this admission?: YesPlan: Continue care in the ICU while on mechanical ventilation. Based on culture results will narrow antibiotics to penicillin. (2) Acute respiratory failure with hypoxia Is this a current diagnosis for this admission?: YesPlan: Continue mechanical ventilation and adjust settings to match O2 demand and improve gas exchange, follow ABG. Continue Daily weaning trials. Continue tube feeds while on ventilator. Seems to be improving clinically, so far tolerating weaning trial today for approximately 2 hours, hopefully able to extubate within the next 24 hours. (3) Acute renal failure Qualifiers: Acute renal failure type: unspecified Qualified Code(s): N17.9 - Acute kidney failure, unspecified Is this a current diagnosis for this admission?: YesPlan: Improved. Likely prerenal. Continue fluids and continue to monitor. Ask pharmacy to renally adjust the dosing of his antibiotics. (4) Sepsis Qualifiers: Sepsis type: sepsis due to unspecified organism Qualified Code(s): A41.9 - Sepsis, unspecified organism Is this a current diagnosis for this admission?: YesPlan: Resolved (5) Cocaine abuse Is this a current diagnosis for this admission?: Yes (6) Bacteremia Is this a current diagnosis for this admission?: YesPlan: Strep pneumonia. Follow-up cultures from 12/1016 still pending, will need 2 weeks of antibiotic coverage from last year blood culture. - Time Time Spent with patient: 35 or more minutes - Plan Summary Plan Summary: Hopeful we can get him extubated within the next 24 hours.
[2016-12-17] MEDS: AMPICILLIN SODIUM/SULBACTAM NA 3 GM in NORMAL SALINE 100 ML IV SCH ×2 (15:13→20:05)
[2016-12-18] MEDS: MIDAZOLAM HCL 100 ML IV PRN (00:37)
[2016-12-18] MEDS: IPRATROPIUM/ALBUTEROL 0.5-2.5 MG/3 ML AMPUL NEB SCH ×4 (02:35→19:59)
[2016-12-18] MEDS: AMPICILLIN SODIUM/SULBACTAM NA 3 GM in NORMAL SALINE 100 ML IV SCH ×4 (03:43→20:19)
[2016-12-18] MEDS: PROPOFOL 100 ML IV PRN ×2 (04:00→06:06)
[2016-12-18 06:31] LABS: HEMATOCRIT 27.3 % (37.9-51.0); HEMOGLOBIN 9.1 g/dL (13.5-17.0); MEAN CORPUSCULAR HEMOGLOBIN 32.3 pg (27.0-33.4); MEAN CORPUSCULAR HGB CONC 33.4 g/dL (32.0-36.0); MEAN CORPUSCULAR VOLUME 97 fl (80-97); RED BLOOD COUNT 2.83 10^6/uL (4.35-5.55); RED CELL DISTRIBUTION WIDTH 14.2 % (11.5-14.0); WHITE BLOOD COUNT 13.1 10^3/uL (4.0-10.5)
[2016-12-18 06:49] LABS: ALANINE AMINOTRANSFERASE 51 U/L (21-72); ALBUMIN 1.8 g/dL (3.5-5.0); ALKALINE PHOSPHATASE 47 U/L (38-126); ANION GAP 8 (5-19); ASPARTATE AMINO TRANSFERASE 35 U/L (17-59); BILIRUBIN,TOTAL 0.2 mg/dL (0.2-1.3); BLOOD UREA NITROGEN 34 mg/dL (7-20); CALCIUM 8.2 mg/dL (8.4-10.2); CARBON DIOXIDE 22 mmol/L (22-30); CHLORIDE 109 mmol/L (98-107); CREATININE RESULT 1.43 mg/dL (0.52-1.25); GLUCOSE 104 mg/dL (75-110); POTASSIUM 4.3 mmol/L (3.6-5.0); SODIUM 138.8 mmol/L (137-145); TOTAL PROTEIN 4.9 g/dL (6.3-8.2)
[2016-12-18 06:55] LABS: ARTERIAL BLOOD O2 SATURATION 95.7 % (94-98)
[2016-12-18 07:04] LABS: BAND NEUTROPHILS % (MANUAL) 2 % (3-5); BASOPHILS % (MANUAL) 0 % (0-2); EOSINOPHILS % (MANUAL) 1 % (0-6); LYMPHOCYTES % (MANUAL) 8 % (13-45); TOTAL CELLS COUNTED 100
[2016-12-18 07:06] LABS: ANISOCYTOSIS SLIGHT; TOXIC GRANULATION SLIGHT
[2016-12-18 07:07] LABS: ROULEAUX SLIGHT
[2016-12-18] MEDS: ENOXAPARIN SODIUM INJ 40 MG/0.4 ML DISP.SYRIN SUBCUT SCH (08:37)
[2016-12-18] MEDS: 1/2 NORMAL SALINE 1,000 ML IV PRN ×2 (08:39→20:20)
--- NOTE | 2016-12-18 10:33 | PDOC PROGRESS REPORT ---
Subjective Progress Note for:: 12/18/16 Subjective:: History of present illness: "YOUSIF SULLIVAN is a 61 year old male patient of the [place] system who presents via EMS with a bout a 2 week history of worsening shortness of breath, cough productive of "cold" and general malaise. He also complains of right-sided chest pain sharp, stabbing in nature worsened with deep breath or cough, alleviated with certain positions and shallow breathing. He reports subjective fevers and chills at home. He denies sick contacts. He has not sought medical treatment for this until today. He denies nausea vomiting or diarrhea. Evaluation in the emergency department he was quite hypoxic on presentation, initially responded to BiPAP therapy, but ultimately fatigued and required urgent intubation and mechanical ventilation by the ER staff. He is currently sedated on a Versed and propofol drips and therefore review of systems and medical history is unobtainable from the patient at this time." His initial blood cultures are showing gram-positive cocci in chains 2 out of 2. Follow-up cultures are negative. He is coughing and respiratory therapy continues to suction thick yellow-hernandez secretions. Tube feeds Running at goal. Normal saline at 100 mL's per hour. Current vent settings are PRvC with a rate of 14, tidal volume 500, pressure support of 12, PEEP of 8, FiO2 of 30%. His ABG looks good this morning. Reason for visit: Follow-up pneumonia and respiratory failure Subjective: Patient remains intubated and sedated and unable to participate in his exam or review of systems. Staff reports the patient became agitated during the night and in spite of Versed at 15 mg per hour the biostatistics teacher elected to start propofol. ROS: Unobtainable Physical Exam Vital Signs: Temp Pulse Resp BP Pulse Ox 100.4 F 66 12 136/67 H 95 12/18/16 10:13 12/18/16 02:35 12/18/16 10:13 12/18/16 10:13 12/18/16 10:13 Intake & Output 12/17/16 12/18/16 12/19/16 06:59 06:59 06:59 Intake Total 3044 3102 Output Total 2925 2170 200 Balance 119 932 -200 Weight 75.1 kg 74.3 kg PHYSICAL EXAM GENERAL: Sedated; well developed, well nourished; no obese; HEENT: normocephalic, atraumatic; PERRLA, no conjunctival injection, no scleral icterus; oral mucosa moist, ETT in good position, trachea midline RESPIRATORY: Resting comfortably on the vent, no increased WOB, improved air entry bilaterally with rales at the right base; no wheezes or rhonchi; improving right greater than left inspiratory crackles persist to mid lung field CARDIO: no JVD; RRR; no systolic murmur; no tachycardia- improved with Versed VASCULAR: no carotid bruit; no abdominal bruit; no pallor; 2+ radial, DP pulse ; normal capillary refill GI: soft; nondistended; normal bowel sounds; no hepato spleno megaly; no rebound, rigidity, guarding; no grimace on palpation. OG tube in place, tube feed running NEURO: normal patella reflexes; EXTREMITIES: no palpable cords in calf; no clubbing, cyanosis; trace pedal edema PSYCH: Sedated but is very restless at attempts to wean his sedation SKIN: warm; moist; no petechiae; no telengectasias; no jaundice; no rash Results Laboratory Results: 12/18/16 06:00 12/18/16 06:00 12/18/16 12/18/16 12/18/16 06:00 06:00 06:00 WBC 13.1 H RBC 2.83 L Hgb 9.1 L Hct 27.3 L MCV 97 MCH 32.3 MCHC 33.4 RDW 14.2 H Plt Count 179 Seg Neutrophils % Not Reportable Lymphocytes % Not Reportable Monocytes % Not Reportable Eosinophils % Not Reportable Basophils % Not Reportable Absolute Neutrophils Not Reportable Absolute Lymphocytes Not Reportable Absolute Monocytes Not Reportable Absolute Eosinophils Not Reportable Absolute Basophils Not Reportable Carbonic Acid 1.04 L HCO3/H2CO3 Ratio 18:1 ABG pH 7.37 ABG pCO2 34.6 L ABG pO2 80.1 ABG HCO3 19.6 L ABG O2 Saturation 95.7 ABG Base Excess -5.0 FiO2 30% Sodium 138.8 Potassium 4.3 Chloride 109 H Carbon Dioxide 22 Anion Gap 8 BUN 34 H Creatinine 1.43 H Est GFR ( Amer) > 60 Est GFR (Non-Af Amer) 50 L Glucose 104 Calcium 8.2 L Total Bilirubin 0.2 AST 35 ALT 51 Alkaline Phosphatase 47 Total Protein 4.9 L Albumin 1.8 L 12/14/16 14:50 Sputum Gram Stain - Final 12/14/16 14:50 Sputum Sputum Culture - Final Streptococcus Pneumoniae Reduced Normal Ingrid Labs reviewed, microbiology shows no growth in follow-up on cultures, his electrolytes and LFTs are reassuring, albumin is falling at 1.8 in spite of nutritional support, his arterial blood gas is reassuring. Impressions: Chest X-Ray 12/18/16 08:00 IMPRESSION: Right lower lobe pneumonia status post intubation. Appropriate position of support apparatus. No pneumothorax. Status: Image reviewed by al - Imaging reviewed shows improved air space disease Assessment & Plan - Diagnosis (1) Pneumonia Qualifiers: Pneumonia type: due to unspecified organism Laterality: right Lung location: lower lobe of lung Qualified Code(s): J18.1 - Lobar pneumonia, unspecified organism Is this a current diagnosis for this admission?: YesPlan: Continue care in the ICU while on mechanical ventilation. Based on culture results narrowed antibiotics to penicillin on 12/17/2016. (2) Acute respiratory failure with hypoxia Is this a current diagnosis for this admission?: YesPlan: Continue attempts to wean mechanical ventilation and adjust settings to match O2 demand and improve gas exchange, follow ABG. Continue tube feeds while on ventilator. Seems to be improving clinically, so if toleratesweaning trial today for approximately 2 hours, will extubate this afternoon. (3) Acute renal failure Qualifiers: Acute renal failure type: unspecified Qualified Code(s): N17.9 - Acute kidney failure, unspecified Is this a current diagnosis for this admission?: YesPlan: Improved, good urine output. Likely prerenal. Continue fluids and continue to monitor. Ask pharmacy to renally adjust the dosing of his antibiotics. (4) Sepsis Qualifiers: Sepsis type: sepsis due to unspecified organism Qualified Code(s): A41.9 - Sepsis, unspecified organism Is this a current diagnosis for this admission?: YesPlan: Resolved (5) Cocaine abuse Is this a current diagnosis for this admission?: Yes (6) Bacteremia Is this a current diagnosis for this admission?: YesPlan: Strep pneumonia. Follow-up cultures from 12/16/16 negative, will need 2 weeks of antibiotic coverage through 12/30/2016. - Time Time Spent with patient: 35 or more minutes - Plan Summary Plan Summary: Anticipated extubate later today
[2016-12-18] MEDS: FAMOTIDINE INJ/PF 20 MG/2 ML SDV IV SCH ×2 (10:37→22:23)
[2016-12-18] MEDS: ACETAMINOPHEN 325 MG TABLET PO PRN (19:51)
[2016-12-18] MEDS: LORAZEPAM INJ 2 MG/1 ML VIAL IV PRN (20:20)
[2016-12-18] MEDS: MORPHINE SULFATE 10 MG/ML INJ IV PRN (22:56)
[2016-12-19] MEDS: IPRATROPIUM/ALBUTEROL 0.5-2.5 MG/3 ML AMPUL NEB SCH ×4 (02:06→20:41)
[2016-12-19] MEDS: AMPICILLIN SODIUM/SULBACTAM NA 3 GM in NORMAL SALINE 100 ML IV SCH ×4 (02:11→21:44)
[2016-12-19 06:08] LABS: HEMOGLOBIN 9.9 g/dL (13.5-17.0); HGB HCT DIFFERENCE 0.7; MEAN CORPUSCULAR HEMOGLOBIN 32.3 pg (27.0-33.4); MEAN CORPUSCULAR VOLUME 95 fl (80-97); RED BLOOD COUNT 3.05 10^6/uL (4.35-5.55); RED CELL DISTRIBUTION WIDTH 13.9 % (11.5-14.0); WHITE BLOOD COUNT 17.8 10^3/uL (4.0-10.5)
[2016-12-19 06:21] LABS: ALANINE AMINOTRANSFERASE 43 U/L (21-72); ALKALINE PHOSPHATASE 42 U/L (38-126); ANION GAP 8 (5-19); ASPARTATE AMINO TRANSFERASE 27 U/L (17-59); BILIRUBIN,TOTAL 0.5 mg/dL (0.2-1.3); BLOOD UREA NITROGEN 26 mg/dL (7-20); CALCIUM 8.3 mg/dL (8.4-10.2); CARBON DIOXIDE 24 mmol/L (22-30); CHLORIDE 104 mmol/L (98-107); CREATININE RESULT 1.18 mg/dL (0.52-1.25); GLUCOSE 60 mg/dL (75-110); POTASSIUM 3.8 mmol/L (3.6-5.0); SODIUM 135.8 mmol/L (137-145); TOTAL PROTEIN 5.3 g/dL (6.3-8.2)
[2016-12-19 06:30] LABS: BAND NEUTROPHILS % (MANUAL) 3 % (3-5); BASOPHILS % (MANUAL) 0 % (0-2); EOSINOPHILS % (MANUAL) 1 % (0-6); LYMPHOCYTES % (MANUAL) 7 % (13-45); TOTAL CELLS COUNTED 100
[2016-12-19 06:31] LABS: TOXIC GRANULATION 1+; TOXIC VACUOLATION PRESENT
[2016-12-19 06:33] LABS: POIKILOCYTOSIS 1+; RBC MORPHOLOGY COMMENT NORMO-CYTIC/CHROMIC
[2016-12-19 06:34] LABS: ROULEAUX 1+; STOMATOCYTES 1+
[2016-12-19] MEDS: ENOXAPARIN SODIUM INJ 40 MG/0.4 ML DISP.SYRIN SUBCUT SCH (08:48)
[2016-12-19] MEDS: 1/2 NORMAL SALINE 1,000 ML IV PRN (09:38)
[2016-12-19] MEDS: THIAMINE HCL 100 MG TABLET PO SCH (09:44)
[2016-12-19] MEDS: FAMOTIDINE INJ/PF 20 MG/2 ML SDV IV SCH ×2 (09:44→21:44)
[2016-12-19] MEDS: LACTOBACILLUS ACIDOPHILUS 250 MG TAB PO SCH ×2 (09:44→17:49)
--- NOTE | 2016-12-19 12:46 | PDOC PROGRESS REPORT ---
Subjective Progress Note for:: 12/19/16 Subjective:: Reason for visit: Follow-up pneumonia and respiratory failure History of present illness: Per H&P -"YOUSIF SULLIVAN is a 61 year old male patient of the [facility] system who presents via EMS with a bout a 2 week history of worsening shortness of breath, cough productive of "cold" and general malaise. He also complains of right-sided chest pain sharp, stabbing in nature worsened with deep breath or cough, alleviated with certain positions and shallow breathing. He reports subjective fevers and chills at home. He denies sick contacts. He has not sought medical treatment for this until presentation. He denies nausea vomiting or diarrhea. Evaluation in the emergency department he was quite hypoxic on presentation, initially responded to BiPAP therapy, but ultimately fatigued and required urgent intubation and mechanical ventilation by the ER staff. He is currently sedated on a Versed and propofol drips and therefore review of systems and medical history is unobtainable from the patient at this time." His initial sputum and blood cultures are showing strep pneumonia 2 of 2. Follow-up cultures on 12/16/2016 are negative. He is coughing and respiratory therapy suctioned thick yellow-hernandez secretions from trachea. Tolerated Tube feeds while intubated. He grew stronger each day with weaning trial until successfully extubated on 12/18/2016. Subjective: He is resting comfortably this morning on minimal supplemental O2. He is alert and talkative, following commands and passed his bedside nursing swallow eval. He denies chest pain, palpitations, nausea, vomiting, diarrhea, fever and chills. ROS: per HPI plus a total of 10 systems reviewed, pertinent positives and negatives noted above, remaining systems negative. Physical Exam Vital Signs: Temp Pulse Resp BP Pulse Ox 99.5 F 68 16 142/63 H 98 12/19/16 08:00 12/19/16 08:10 12/19/16 08:10 12/19/16 08:00 12/19/16 08:00 Intake & Output 12/18/16 12/19/16 12/20/16 06:59 06:59 06:59 Intake Total 3102 2506 750 Output Total 2170 3250 700 Balance 932 -744 50 Weight 74.3 kg 77 kg PHYSICAL EXAM GENERAL: Awake and alert in no acute distress, well developed, well nourished; no obese; HEENT: normocephalic, atraumatic; PERRLA, no conjunctival injection, no scleral icterus; oral mucosa moist RESPIRATORY: Breathing easily, no increased WOB, improved air entry bilaterally with rales at the right base; no wheezes or rhonchi; improving right greater than left inspiratory crackles persist to mid lung field CARDIO: no JVD; RRR; no systolic murmur; no tachycardia VASCULAR: no carotid bruit; no abdominal bruit; no pallor; 2+ radial, DP pulse ; normal capillary refill GI: soft; nondistended; normal bowel sounds; no rebound, rigidity, guarding; no grimace on palpation. NEURO: normal patella reflexes; EXTREMITIES: no palpable cords in calf; no clubbing, cyanosis; trace pedal edema PSYCH: Normal mood, normal affect SKIN: warm; moist; no petechiae; no telengectasias; no jaundice; no rash Results Laboratory Results: 12/19/16 05:45 12/19/16 05:45 12/19/16 12/19/16 05:45 05:45 WBC 17.8 H RBC 3.05 L Hgb 9.9 L Hct 29.0 L MCV 95 MCH 32.3 MCHC 34.0 RDW 13.9 Plt Count 248 Seg Neutrophils % Not Reportable Lymphocytes % Not Reportable Monocytes % Not Reportable Eosinophils % Not Reportable Basophils % Not Reportable Absolute Neutrophils Not Reportable Absolute Lymphocytes Not Reportable Absolute Monocytes Not Reportable Absolute Eosinophils Not Reportable Absolute Basophils Not Reportable Sodium 135.8 L Potassium 3.8 Chloride 104 Carbon Dioxide 24 Anion Gap 8 BUN 26 H Creatinine 1.18 Est GFR ( Amer) > 60 Est GFR (Non-Af Amer) > 60 Glucose 60 L Calcium 8.3 L Total Bilirubin 0.5 AST 27 ALT 43 Alkaline Phosphatase 42 Total Protein 5.3 L Albumin 2.0 L Labs reviewed, CBC shows a worsening leukocytosis, his electrolytes including renal function continued to improve Impressions: Chest X-Ray 12/18/16 08:00 IMPRESSION: Right lower lobe pneumonia status post intubation. Appropriate position of support apparatus. No pneumothorax. Status: Imported from PACS Assessment & Plan - Diagnosis (1) Pneumonia Qualifiers: Pneumonia type: due to unspecified organism Laterality: right Lung location: lower lobe of lung Qualified Code(s): J18.1 - Lobar pneumonia, unspecified organism Is this a current diagnosis for this admission?: YesPlan: Improved. Based on culture results narrowed antibiotics to Unasyn on 2016. Continue supplemental O2, neurologic, pulmonary toilet, increase activity and downgrade to IMCU. (2) Acute respiratory failure with hypoxia Is this a current diagnosis for this admission?: YesPlan: Continue treatment as above. Successfully extubated on 12/18/2016. (3) Acute renal failure Qualifiers: Acute renal failure type: unspecified Qualified Code(s): N17.9 - Acute kidney failure, unspecified Is this a current diagnosis for this admission?: YesPlan: Resolved. good urine output. Likely prerenal. Adjust fluids and continue to monitor. Ask pharmacy to renally adjust the dosing of his antibiotics. (4) Sepsis Qualifiers: Sepsis type: sepsis due to unspecified organism Qualified Code(s): A41.9 - Sepsis, unspecified organism Is this a current diagnosis for this admission?: YesPlan: Worsening leukocytosis of unclear etiology, possibly stress related. He is not having any diarrhea to suggest C. difficile colitis. He is not having any fever , tachycardia or tachypnea so we'll continue to monitor for now. Consider repeat cultures and broadening antibiotics if his condition were to deteriorate. (5) Cocaine abuse Is this a current diagnosis for this admission?: Yes (6) Bacteremia Is this a current diagnosis for this admission?: YesPlan: Strep pneumonia. Follow-up cultures from 12/16/16 negative, will need 2 weeks of antibiotic coverage through 12/30/2016. - Time Time Spent with patient: 25-34 minutes Anticipated discharge: Home with Homehealth Within: within 72 hours - Plan Summary Plan Summary: Downgraded to IMCU, physical therapy eval to determine outpatient or rehabilitation needs. Follow-up CBC in the morning.
[2016-12-19] MEDS: ACETAMINOPHEN 325 MG TABLET PO PRN (19:28)
[2016-12-19] MEDS: MORPHINE SULFATE 10 MG/ML INJ IV PRN (21:46)
[2016-12-20] MEDS: IPRATROPIUM/ALBUTEROL 0.5-2.5 MG/3 ML AMPUL NEB SCH ×4 (02:41→20:59)
[2016-12-20] MEDS: AMPICILLIN SODIUM/SULBACTAM NA 3 GM in NORMAL SALINE 100 ML IV SCH (04:41)
[2016-12-20] MEDS: 1/2 NORMAL SALINE 1,000 ML IV PRN (04:42)
[2016-12-20 04:59] LABS: HEMOGLOBIN 9.1 g/dL (13.5-17.0); HGB HCT DIFFERENCE 0.3; MEAN CORPUSCULAR HEMOGLOBIN 32.1 pg (27.0-33.4); MEAN CORPUSCULAR HGB CONC 33.8 g/dL (32.0-36.0); MEAN CORPUSCULAR VOLUME 95 fl (80-97); RED BLOOD COUNT 2.85 10^6/uL (4.35-5.55); RED CELL DISTRIBUTION WIDTH 13.8 % (11.5-14.0); WHITE BLOOD COUNT 16.4 10^3/uL (4.0-10.5)
[2016-12-20 05:20] LABS: ANION GAP 6 (5-19); BLOOD UREA NITROGEN 20 mg/dL (7-20); CALCIUM 8.4 mg/dL (8.4-10.2); CARBON DIOXIDE 27 mmol/L (22-30); CHLORIDE 102 mmol/L (98-107); CREATININE RESULT 1.15 mg/dL (0.52-1.25); GLUCOSE 117 mg/dL (75-110); MAGNESIUM 1.3 mg/dL (1.6-2.3); PHOSPHORUS 4.1 mg/dL (2.5-4.5); POTASSIUM 3.8 mmol/L (3.6-5.0)
[2016-12-20 05:23] LABS: BAND NEUTROPHILS % (MANUAL) 3 % (3-5); BASOPHILS % (MANUAL) 0 % (0-2); EOSINOPHILS % (MANUAL) 0 % (0-6); LYMPHOCYTES % (MANUAL) 4 % (13-45); TOTAL CELLS COUNTED 100
[2016-12-20 05:27] LABS: TOXIC GRANULATION SLIGHT; TOXIC VACUOLATION PRESENT
[2016-12-20 05:28] LABS: OVALOCYTES SLIGHT; POIKILOCYTOSIS SLIGHT; POLYCHROMASIA SLIGHT; ROULEAUX SLIGHT
[2016-12-20 05:30] LABS: SCHISTOCYTES SLIGHT
[2016-12-20] MEDS: MORPHINE SULFATE 10 MG/ML INJ IV PRN ×3 (06:18→22:03)
[2016-12-20] MEDS: ACETAMINOPHEN 325 MG TABLET PO PRN (07:24)
[2016-12-20] MEDS ORDERED: VANCOMYCIN HCL 0 MG in DEXTROSE 5%-WATER 250 ML IV NR (09:00)
[2016-12-20] MEDS: ENOXAPARIN SODIUM INJ 40 MG/0.4 ML DISP.SYRIN SUBCUT SCH (09:42)
[2016-12-20] MEDS ORDERED: CEFTRIAXONE 2 GM/D5W RTU 50 ML IV SCH ×2 (10:00→22:00)
[2016-12-20] MEDS: FAMOTIDINE INJ/PF 20 MG/2 ML SDV IV SCH ×2 (10:27→22:03)
[2016-12-20] MEDS: LACTOBACILLUS ACIDOPHILUS 250 MG TAB PO SCH ×2 (10:28→17:30)
[2016-12-20] MEDS: THIAMINE HCL 100 MG TABLET PO SCH (10:28)
[2016-12-20] MEDS: MAGNESIUM SULFATE/D5W 1 GM/100 ML RTUPB IV SCH ×2 (10:29→12:44)
[2016-12-20] MEDS: DEXAMETHASONE SOD PHOS INJ 10 MG/1 ML VIAL IV SCH ×2 (12:44→17:31)
--- NOTE | 2016-12-20 13:56 | PDOC PROGRESS REPORT ---
Subjective Progress Note for:: 12/20/16 Subjective:: Patient is seen in no respiratory distress this morning; with low-grade fever that is persistent He has severe headache photophobia and neck pain No nausea or vomiting Physical Exam Vital Signs: Temp Pulse Resp BP Pulse Ox 98.2 F 59 L 20 145/73 H 98 12/20/16 12:17 12/20/16 12:17 12/20/16 12:17 12/20/16 12:17 12/20/16 12:17 Intake & Output 12/19/16 12/20/16 12/21/16 00:59 00:59 00:59 Intake Total 2734 4419 474 Output Total 2575 3100 350 Balance 159 1319 124 Weight 74.3 kg 77 kg 73.6 kg General appearance: PRESENT: mild distress - It is of the headache, well- developed, well-nourished Head exam: PRESENT: atraumatic, normocephalic Eye exam: PRESENT: conjunctiva pink, EOMI, PERRLA. ABSENT: scleral icterus Ear exam: PRESENT: normal external ear exam Mouth exam: PRESENT: moist, tongue midline Neck exam: ABSENT: carotid bruit, JVD, lymphadenopathy, thyromegaly Respiratory exam: PRESENT: clear to auscultation luis. ABSENT: rales, rhonchi, wheezes Cardiovascular exam: PRESENT: RRR. ABSENT: diastolic murmur, rubs, systolic murmur Pulses: PRESENT: normal dorsalis pedis pul Vascular exam: PRESENT: normal capillary refill GI/Abdominal exam: PRESENT: normal bowel sounds, soft. ABSENT: distended, guarding, mass, organolmegaly, rebound, tenderness Rectal exam: PRESENT: deferred Extremities exam: PRESENT: full ROM. ABSENT: calf tenderness, clubbing, pedal edema Neurological exam: PRESENT: alert, awake, oriented to person, oriented to place , oriented to time, oriented to situation, CN II-XII grossly intact, other - Neck pain on flexion. ABSENT: motor sensory deficit Psychiatric exam: PRESENT: appropriate affect, normal mood. ABSENT: homicidal ideation, suicidal ideation Skin exam: PRESENT: dry, intact, warm. ABSENT: cyanosis, rash Results Laboratory Results: 12/20/16 04:40 12/20/16 04:40 12/20/16 12/20/16 12/20/16 04:40 04:40 04:40 WBC 16.4 H RBC 2.85 L Hgb 9.1 L Hct 27.0 L MCV 95 MCH 32.1 MCHC 33.8 RDW 13.8 Plt Count 283 Seg Neutrophils % Not Reportable Lymphocytes % Not Reportable Monocytes % Not Reportable Eosinophils % Not Reportable Basophils % Not Reportable Absolute Neutrophils Not Reportable Absolute Lymphocytes Not Reportable Absolute Monocytes Not Reportable Absolute Eosinophils Not Reportable Absolute Basophils Not Reportable Sodium 135.0 L Potassium 3.8 Chloride 102 Carbon Dioxide 27 Anion Gap 6 BUN 20 Creatinine 1.15 Est GFR ( Amer) > 60 Est GFR (Non-Af Amer) > 60 Glucose 117 H Calcium 8.4 Phosphorus 4.1 Magnesium 1.3 L C-Reactive Protein 146.0 H 12/20/16 12/20/16 12/20/16 04:40 04:40 04:40 WBC 16.4 H Seg Neuts % (Manual) 85 H ESR 119 H Magnesium 1.3 L C-Reactive Protein 12/20/16 04:40 WBC Seg Neuts % (Manual) ESR Magnesium C-Reactive Protein 146.0 H Impressions: Abdomen Ultrasound 12/14/16 00:00 IMPRESSION: No acute biliary findings. Trace free fluid around the inferior pole of the right kidney, uncertain significance. PANCREAS PARTIALLY OBSCURED BY GAS. KUB X-Ray 12/14/16 13:38 IMPRESSION: Nasogastric tube tip in the stomach. Chest X-Ray 12/18/16 08:00 IMPRESSION: Right lower lobe pneumonia status post intubation. Appropriate position of support apparatus. No pneumothorax. Head CT 12/20/16 08:57 IMPRESSION: NORMAL BRAIN CT WITHOUT CONTRAST. Assessment & Plan - Diagnosis (1) Meningitis Is this a current diagnosis for this admission?: YesPlan: Should be ruled out because the severe headache neck pain, patient is certainly at risk meningitis with pneumococcal bacteremia on admission Noted that the patient still has a white blood count of 16,000 extremely elevated sedimentation rate over 100, and CRP of 146 We will change the antibiotic management to ceftriaxone and vancomycin Also administer Decadron Spinal tap will be performed this afternoon and medical management will be reevaluated according to results, (2) Acute renal failure Qualifiers: Acute renal failure type: unspecified Qualified Code(s): N17.9 - Acute kidney failure, unspecified Is this a current diagnosis for this admission?: YesPlan: Secondary to dehydration on admission has resolved Renal function is normal now (3) Acute respiratory failure with hypoxia Is this a current diagnosis for this admission?: YesPlan: Improved Patient is extubated comfortable on nasal cannula (4) Bacteremia Is this a current diagnosis for this admission?: YesPlan: Pneumococcal bacteremia Pneumococcus is pansensitive (5) Pneumonia Qualifiers: Pneumonia type: due to unspecified organism Laterality: right Lung location: lower lobe of lung Qualified Code(s): J18.1 - Lobar pneumonia, unspecified organism Is this a current diagnosis for this admission?: YesPlan: Improving Patient has been on Unasyn until today The pneumococcus cultured is pansensitive
[2016-12-20] MEDS ORDERED: VANCOMYCIN HCL 1,000 MG in DEXTROSE 5%-WATER 250 ML IV SCH (14:00)
[2016-12-20 14:16] LABS: APPEARANCE ALL TUBES CLEAR
[2016-12-20 14:25] LABS: RBC DILUENT USED NONE USED; RBC DILUTION FACTOR 1; RBC SIDE 1 0; RBC SIDE 2 0; TOTAL RBC SQUARES COUNTED 225
[2016-12-20 14:40] LABS: S. PNEUMONIAE AG NEGATIVE (NEGATIVE); STREP. GROUP B AG NEGATIVE (NEGATIVE)
[2016-12-20 14:41] LABS: CSF CULTURED REQUIRED CSF CULTURE ORDERED (CSFY)
[2016-12-20 14:45] LABS: H. INFLUENZAE TYPE B AG NEGATIVE (NEGATIVE)
[2016-12-20 15:16] LABS: WHITE BLOOD CELL,CSF 7 /uL (0-5)
[2016-12-20 15:20] LABS: GLUCOSE,CSF 66 mg/dL (40-70)
[2016-12-21] MEDS: IPRATROPIUM/ALBUTEROL 0.5-2.5 MG/3 ML AMPUL NEB SCH ×4 (02:11→21:00)
[2016-12-21] MEDS: LORAZEPAM INJ 2 MG/1 ML VIAL IV PRN (03:29)
[2016-12-21] MEDS: CEFTRIAXONE 2 GM/D5W RTU 50 ML IV SCH (09:56)
[2016-12-21] MEDS: FAMOTIDINE INJ/PF 20 MG/2 ML SDV IV SCH (09:57)
[2016-12-21] MEDS: THIAMINE HCL 100 MG TABLET PO SCH (09:57)
[2016-12-21] MEDS: ENOXAPARIN SODIUM INJ 40 MG/0.4 ML DISP.SYRIN SUBCUT SCH (09:57)
[2016-12-21] MEDS: LACTOBACILLUS ACIDOPHILUS 250 MG TAB PO SCH ×2 (09:57→17:33)
[2016-12-21] MEDS: 1/2 NORMAL SALINE 1,000 ML IV PRN (12:37)
--- NOTE | 2016-12-21 14:26 | PDOC PROGRESS REPORT ---
Subjective Progress Note for:: 12/21/16 Subjective:: Patient is doing much better Still complaining of headache and photophobia, but more comfortable spinal tap was essentially negative with normal spinal fluid, negative bacterial antigens and negative culture Patient still on Ceftriaxone IV until WBC, Sed Rate and CRP on downward trend Physical Exam Vital Signs: Temp Pulse Resp BP Pulse Ox 98.6 F 80 16 159/75 H 91 L 12/21/16 11:07 12/21/16 11:07 12/21/16 11:07 12/21/16 11:07 12/21/16 11:07 Intake & Output 12/20/16 12/21/16 12/22/16 00:59 00:59 00:59 Intake Total 4942 1061 720 Output Total 4075 1300 Balance 867 -239 720 Weight 77 kg 73.6 kg 75.4 kg General appearance: PRESENT: no acute distress, thin Head exam: PRESENT: atraumatic, normocephalic Eye exam: PRESENT: conjunctiva pink, EOMI, PERRLA. ABSENT: scleral icterus Ear exam: PRESENT: normal external ear exam Mouth exam: PRESENT: moist, tongue midline Neck exam: ABSENT: carotid bruit, JVD, lymphadenopathy, thyromegaly Respiratory exam: PRESENT: clear to auscultation luis. ABSENT: rales, rhonchi, wheezes Cardiovascular exam: PRESENT: RRR. ABSENT: diastolic murmur, rubs, systolic murmur Pulses: PRESENT: normal dorsalis pedis pul Vascular exam: PRESENT: normal capillary refill GI/Abdominal exam: PRESENT: normal bowel sounds, soft. ABSENT: distended, guarding, mass, organolmegaly, rebound, tenderness Rectal exam: PRESENT: deferred Extremities exam: PRESENT: full ROM. ABSENT: calf tenderness, clubbing, pedal edema Neurological exam: PRESENT: alert, awake, oriented to person, oriented to place , oriented to time, oriented to situation, CN II-XII grossly intact. ABSENT: motor sensory deficit Psychiatric exam: PRESENT: appropriate affect, normal mood. ABSENT: homicidal ideation, suicidal ideation Skin exam: PRESENT: dry, intact, warm. ABSENT: cyanosis, rash Results Laboratory Results: 12/20/16 04:40 12/20/16 04:40 12/20/16 12/20/16 12/20/16 13:50 13:50 13:52 Fluid Tube Number 3 CSF Volume 8.0 CSF Appearance CLEAR CSF Color COLORLESS CSF WBC 7 H CSF RBC 0 CSF Comment CSF CULTURE ORDERED CSF Glucose 66 CSF Total Protein 36 12/16/16 13:05 Blood Blood Culture - Final NO GROWTH IN 5 DAYS Impressions: Abdomen Ultrasound 12/14/16 00:00 IMPRESSION: No acute biliary findings. Trace free fluid around the inferior pole of the right kidney, uncertain significance. PANCREAS PARTIALLY OBSCURED BY GAS. KUB X-Ray 12/14/16 13:38 IMPRESSION: Nasogastric tube tip in the stomach. Chest X-Ray 12/18/16 08:00 IMPRESSION: Right lower lobe pneumonia status post intubation. Appropriate position of support apparatus. No pneumothorax. Guidance Fluoroscopy 12/20/16 00:00 IMPRESSION: Lumbar puncture under fluoroscopy. No immediate complication. Head CT 12/20/16 08:57 IMPRESSION: NORMAL BRAIN CT WITHOUT CONTRAST. Lumbar Puncture 12/20/16 11:40 IMPRESSION: Lumbar puncture under fluoroscopy. No immediate complication. Assessment & Plan - Diagnosis (1) Meningitis Is this a current diagnosis for this admission?: NoPlan: has been ruled out patient likely is suffering from chronic migraines (2) Acute renal failure Qualifiers: Acute renal failure type: unspecified Qualified Code(s): N17.9 - Acute kidney failure, unspecified Is this a current diagnosis for this admission?: YesPlan: resolved (3) Acute respiratory failure with hypoxia Is this a current diagnosis for this admission?: YesPlan: secondary to pneumonia Improved Patient is off nasal O2 continue nebs, antibiotics (4) Bacteremia Is this a current diagnosis for this admission?: YesPlan: strep pneumonia bacteremia will repeat culture (5) Pneumonia Qualifiers: Pneumonia type: due to unspecified organism Laterality: right Lung location: lower lobe of lung Qualified Code(s): J18.1 - Lobar pneumonia, unspecified organism Is this a current diagnosis for this admission?: Yes - Time Time Spent with patient: will keep patient an other 24-48 hours he may be downgraded to medical unit Time Spent with patient: 25-34 minutes Within: within 48 hours
[2016-12-21] MEDS: TRAMADOL HCL 50 MG TABLET PO PRN (23:09)
[2016-12-22] MEDS: IPRATROPIUM/ALBUTEROL 0.5-2.5 MG/3 ML AMPUL NEB SCH ×4 (02:49→20:28)
[2016-12-22 06:25] LABS: ABSOLUTE BASOPHILS # (AUTO) 0.1 10^3/uL (0.0-0.2); ABSOLUTE EOSINOPHILS # (AUTO) 0.1 10^3/uL (0.0-0.6); ABSOLUTE LYMPHOCYTES (AUTO) 1.5 10^3/uL (0.5-4.7); ABSOLUTE MONOCYTES (AUTO) 0.9 10^3/uL (0.1-1.4); ABSOLUTE NEUT (AUTO) 10.7 10^3/uL (1.7-8.2); BASOPHILS % (AUTO) 0.4 % (0-2); EOSINOPHILS % (AUTO) 1.1 % (0-6); HEMATOCRIT 26.5 % (37.9-51.0); HEMOGLOBIN 9.1 g/dL (13.5-17.0); HGB HCT DIFFERENCE 0.8; MEAN CORPUSCULAR HEMOGLOBIN 32.1 pg (27.0-33.4); MEAN CORPUSCULAR HGB CONC 34.2 g/dL (32.0-36.0); MEAN CORPUSCULAR VOLUME 94 fl (80-97); MONOCYTES % (AUTO) 7.1 % (3-13); RED BLOOD COUNT 2.82 10^6/uL (4.35-5.55); RED CELL DISTRIBUTION WIDTH 13.4 % (11.5-14.0); SEGMENTED NEUTROPHILS % (AUTO) 80.4 % (42-78); WHITE BLOOD COUNT 13.3 10^3/uL (4.0-10.5)
[2016-12-22 06:40] LABS: ANION GAP 7 (5-19); BLOOD UREA NITROGEN 16 mg/dL (7-20); CALCIUM 8.4 mg/dL (8.4-10.2); CARBON DIOXIDE 30 mmol/L (22-30); CHLORIDE 100 mmol/L (98-107); GLUCOSE 76 mg/dL (75-110); POTASSIUM 3.6 mmol/L (3.6-5.0); SODIUM 136.6 mmol/L (137-145)
[2016-12-22] MEDS ORDERED: ENOXAPARIN SODIUM INJ 40 MG/0.4 ML DISP.SYRIN SUBCUT ONE (09:00)
[2016-12-22] MEDS: CEFTRIAXONE 2 GM/D5W RTU 50 ML IV SCH (09:11)
[2016-12-22] MEDS: LACTOBACILLUS ACIDOPHILUS 250 MG TAB PO SCH ×2 (09:11→17:41)
[2016-12-22] MEDS: THIAMINE HCL 100 MG TABLET PO SCH (09:11)
--- NOTE | 2016-12-22 16:21 | PDOC PROGRESS REPORT ---
Subjective Progress Note for:: 12/22/16 Subjective:: Patient appears a lot more comfortable today He is alert awake The cough is still persistent and he has significant wheezing bilaterally The eyes is seems to be draining less but he still complaining of severe photophobia The white blood count is finally coming down Physical Exam Vital Signs: Temp Pulse Resp BP Pulse Ox 99.3 F 70 16 143/55 H 92 12/22/16 11:22 12/22/16 13:56 12/22/16 13:56 12/22/16 11:22 12/22/16 13:56 Intake & Output 12/21/16 12/22/16 12/23/16 00:59 00:59 00:59 Intake Total 1061 1355 444 Output Total 1300 1400 1000 Balance -239 -45 -556 Weight 73.6 kg 75.4 kg 75 kg General appearance: PRESENT: no acute distress Head exam: PRESENT: atraumatic, normocephalic Eye exam: PRESENT: conjunctival injection, EOMI, PERRLA. ABSENT: nystagmus, scleral icterus Neck exam: ABSENT: carotid bruit, JVD, lymphadenopathy, thyromegaly Respiratory exam: PRESENT: symmetrical, wheezes. ABSENT: accessory muscle use, rhonchi Cardiovascular exam: PRESENT: RRR. ABSENT: diastolic murmur, rubs, systolic murmur Pulses: PRESENT: normal dorsalis pedis pul GI/Abdominal exam: PRESENT: normal bowel sounds, soft. ABSENT: distended, guarding, mass, organolmegaly, rebound, tenderness Extremities exam: PRESENT: full ROM. ABSENT: calf tenderness, clubbing, pedal edema Neurological exam: PRESENT: alert, awake, oriented to person, oriented to place , oriented to time, oriented to situation, CN II-XII grossly intact. ABSENT: motor sensory deficit Results Laboratory Results: 12/22/16 05:30 12/22/16 05:30 12/22/16 12/22/16 05:30 05:30 WBC 13.3 H RBC 2.82 L Hgb 9.1 L Hct 26.5 L MCV 94 MCH 32.1 MCHC 34.2 RDW 13.4 Plt Count 389 Seg Neutrophils % 80.4 H Lymphocytes % 11.0 L Monocytes % 7.1 Eosinophils % 1.1 Basophils % 0.4 Absolute Neutrophils 10.7 H Absolute Lymphocytes 1.5 Absolute Monocytes 0.9 Absolute Eosinophils 0.1 Absolute Basophils 0.1 Sodium 136.6 L Potassium 3.6 Chloride 100 Carbon Dioxide 30 Anion Gap 7 BUN 16 Creatinine 1.10 Est GFR ( Amer) > 60 Est GFR (Non-Af Amer) > 60 Glucose 76 Calcium 8.4 12/16/16 14:31 Blood Blood Culture - Final NO GROWTH IN 5 DAYS 12/16/16 13:05 Blood Blood Culture - Final NO GROWTH IN 5 DAYS Impressions: Abdomen Ultrasound 12/14/16 00:00 IMPRESSION: No acute biliary findings. Trace free fluid around the inferior pole of the right kidney, uncertain significance. PANCREAS PARTIALLY OBSCURED BY GAS. KUB X-Ray 12/14/16 13:38 IMPRESSION: Nasogastric tube tip in the stomach. Chest X-Ray 12/18/16 08:00 IMPRESSION: Right lower lobe pneumonia status post intubation. Appropriate position of support apparatus. No pneumothorax. Guidance Fluoroscopy 12/20/16 00:00 IMPRESSION: Lumbar puncture under fluoroscopy. No immediate complication. Head CT 12/20/16 08:57 IMPRESSION: NORMAL BRAIN CT WITHOUT CONTRAST. Lumbar Puncture 12/20/16 11:40 IMPRESSION: Lumbar puncture under fluoroscopy. No immediate complication. Assessment & Plan - Diagnosis (1) Meningitis Is this a current diagnosis for this admission?: NoPlan: Was ruled out (2) Acute renal failure Qualifiers: Acute renal failure type: unspecified Qualified Code(s): N17.9 - Acute kidney failure, unspecified Is this a current diagnosis for this admission?: Yes (3) Acute respiratory failure with hypoxia Is this a current diagnosis for this admission?: Yes (4) Bacteremia Is this a current diagnosis for this admission?: Yes (5) Pneumonia Qualifiers: Pneumonia type: due to unspecified organism Laterality: right Lung location: lower lobe of lung Qualified Code(s): J18.1 - Lobar pneumonia, unspecified organism Is this a current diagnosis for this admission?: YesPlan: Is very much improved Continue ceftriaxone IV for another 24-48 hrs. (6) Asthmatic bronchitis Qualifiers: Asthma severity: unspecified severity Asthma complication type: with acute exacerbation Qualified Code(s): J45.901 - Unspecified asthma with ( acute) exacerbation Is this a current diagnosis for this admission?: YesPlan: We will initiate small doses of steroids Continue nebs Continue antibiotics We will place a nicotine patch - Time Time Spent with patient: 15-24 minutes - Patient to be evaluated by ophthalmology today
[2016-12-22] MEDS ORDERED: PREDNISONE 20 MG TABLET PO ONE (18:15)
[2016-12-22] MEDS: GUAIFENESIN 600 MG TABLET.SA PO SCH (18:42)
[2016-12-22] MEDS: NICOTINE 21 MG/24 HR PATCH.TD24 TD SCH (18:43)
[2016-12-23] MEDS: TRAMADOL HCL 50 MG TABLET PO PRN ×2 (00:25→21:19)
[2016-12-23] MEDS: IPRATROPIUM/ALBUTEROL 0.5-2.5 MG/3 ML AMPUL NEB SCH ×4 (02:09→20:12)
[2016-12-23] MEDS: GUAIFENESIN 600 MG TABLET.SA PO SCH ×2 (06:58→18:59)
[2016-12-23] MEDS: ENOXAPARIN SODIUM INJ 40 MG/0.4 ML DISP.SYRIN SUBCUT SCH (10:00)
[2016-12-23] MEDS: THIAMINE HCL 100 MG TABLET PO SCH (10:00)
[2016-12-23] MEDS: LACTOBACILLUS ACIDOPHILUS 250 MG TAB PO SCH ×2 (10:01→18:59)
[2016-12-23] MEDS: PREDNISONE 20 MG TABLET PO SCH (10:01)
[2016-12-23] MEDS ORDERED: AMOXICILLIN TR/POT CLAVULANATE 500-125 MG TAB PO ONE ×2 (11:30→16:30)
--- NOTE | 2016-12-23 13:12 | PDOC PROGRESS REPORT ---
Subjective Progress Note for:: 12/23/16 Subjective:: doing very well ambulating in hallway alert awake still complaining of eye pain no fever or chills Physical Exam Vital Signs: Temp Pulse Resp BP Pulse Ox 98.5 F 57 L 18 139/65 H 93 12/23/16 07:56 12/23/16 08:35 12/23/16 08:35 12/23/16 07:56 12/23/16 08:35 Intake & Output 12/22/16 12/23/16 12/24/16 00:59 00:59 00:59 Intake Total 1355 1338 900 Output Total 1400 2950 950 Balance -45 -1612 -50 Weight 75.4 kg 75 kg 71 kg General appearance: PRESENT: no acute distress, well-developed, well-nourished Head exam: PRESENT: atraumatic, normocephalic Eye exam: PRESENT: conjunctiva pink, EOMI, PERRLA. ABSENT: scleral icterus Ear exam: PRESENT: normal external ear exam Mouth exam: PRESENT: moist, tongue midline Neck exam: ABSENT: carotid bruit, JVD, lymphadenopathy, thyromegaly Respiratory exam: PRESENT: clear to auscultation luis. ABSENT: rales, rhonchi, wheezes Cardiovascular exam: PRESENT: RRR. ABSENT: diastolic murmur, rubs, systolic murmur Pulses: PRESENT: normal dorsalis pedis pul Vascular exam: PRESENT: normal capillary refill GI/Abdominal exam: PRESENT: normal bowel sounds, soft. ABSENT: distended, guarding, mass, organolmegaly, rebound, tenderness Rectal exam: PRESENT: deferred Extremities exam: PRESENT: full ROM. ABSENT: calf tenderness, clubbing, pedal edema Neurological exam: PRESENT: alert, awake, oriented to person, oriented to place , oriented to time, oriented to situation, CN II-XII grossly intact. ABSENT: motor sensory deficit Psychiatric exam: PRESENT: appropriate affect, normal mood. ABSENT: homicidal ideation, suicidal ideation Skin exam: PRESENT: dry, intact, warm. ABSENT: cyanosis, rash Results Laboratory Results: 12/22/16 05:30 12/22/16 05:30 12/20/16 13:50 Cerebral Spinal Fluid - Csf Gram Stain - Final 12/20/16 13:50 Cerebral Spinal Fluid - Csf CSF Culture - Final NO GROWTH 3 DAYS Impressions: Abdomen Ultrasound 12/14/16 00:00 IMPRESSION: No acute biliary findings. Trace free fluid around the inferior pole of the right kidney, uncertain significance. PANCREAS PARTIALLY OBSCURED BY GAS. KUB X-Ray 12/14/16 13:38 IMPRESSION: Nasogastric tube tip in the stomach. Chest X-Ray 12/18/16 08:00 IMPRESSION: Right lower lobe pneumonia status post intubation. Appropriate position of support apparatus. No pneumothorax. Guidance Fluoroscopy 12/20/16 00:00 IMPRESSION: Lumbar puncture under fluoroscopy. No immediate complication. Head CT 12/20/16 08:57 IMPRESSION: NORMAL BRAIN CT WITHOUT CONTRAST. Lumbar Puncture 12/20/16 11:40 IMPRESSION: Lumbar puncture under fluoroscopy. No immediate complication. Assessment & Plan - Diagnosis (1) Acute renal failure Qualifiers: Acute renal failure type: unspecified Qualified Code(s): N17.9 - Acute kidney failure, unspecified Is this a current diagnosis for this admission?: Yes (2) Acute respiratory failure with hypoxia Is this a current diagnosis for this admission?: Yes (3) Bacteremia Is this a current diagnosis for this admission?: Yes (4) Pneumonia Qualifiers: Pneumonia type: due to unspecified organism Laterality: right Lung location: lower lobe of lung Qualified Code(s): J18.1 - Lobar pneumonia, unspecified organism Is this a current diagnosis for this admission?: Yes (5) Asthmatic bronchitis Qualifiers: Asthma severity: unspecified severity Asthma complication type: with acute exacerbation Qualified Code(s): J45.901 - Unspecified asthma with ( acute) exacerbation Is this a current diagnosis for this admission?: Yes - Time Time Spent with patient: will switch antibiotics to po ambulate d/c miranda will discharge in am if stable Time Spent with patient: 15-24 minutes
[2016-12-23] MEDS: NICOTINE 21 MG/24 HR PATCH.TD24 TD SCH (19:00)
[2016-12-23] MEDS: AMOXICILLIN TR/POT CLAVULANATE 500-125 MG TAB PO SCH (21:20)
[2016-12-24] MEDS: IPRATROPIUM/ALBUTEROL 0.5-2.5 MG/3 ML AMPUL NEB SCH ×3 (02:19→13:27)
[2016-12-24] MEDS: GUAIFENESIN 600 MG TABLET.SA PO SCH (06:58)
[2016-12-24] MEDS: AMOXICILLIN TR/POT CLAVULANATE 500-125 MG TAB PO SCH ×2 (06:58→13:24)
[2016-12-24] MEDS: ENOXAPARIN SODIUM INJ 40 MG/0.4 ML DISP.SYRIN SUBCUT SCH (10:21)
[2016-12-24] MEDS: LACTOBACILLUS ACIDOPHILUS 250 MG TAB PO SCH (10:22)
[2016-12-24] MEDS: PREDNISONE 20 MG TABLET PO SCH (10:22)
[2016-12-24] MEDS: THIAMINE HCL 100 MG TABLET PO SCH (10:23)
[2016-12-24] MEDS: TRAMADOL HCL 50 MG TABLET PO PRN (10:40)
[2016-12-24 13:18] VITALS: BP 148/65
--- NOTE | 2016-12-24 15:28 | PDOC DISCHARGE SUMMARY ---
General - Admit/Disc Date/PCP Admission Date/Primary Care Provider: 12/14/16 13:15 Discharge Date: 12/24/16 - Discharge Diagnosis (1) Acute renal failure Is this a current diagnosis for this admission?: YesSummary: 12/14/16 12/22/16 10:05 05:30 BUN 57 H 16 Creatinine 3.96 H 1.10 Patient was admitted with acute renal failure secondary to severe dehydration and sepsis He responded to IV hydration At time of discharge patient has a normal renal function (2) Acute respiratory failure with hypoxia Is this a current diagnosis for this admission?: YesSummary: 12/14/16 12/18/16 15:00 06:00 HCO3/H2CO3 Ratio 9:1 ABG pH 7.09 L* 7.37 ABG pCO2 70.2 H* 34.6 L ABG pO2 97.6 80.1 ABG HCO3 20.6 ABG Total CO2 22.7 L FiO2 80% 30% Acute respiratory failure with hypercapnia and hypoxemia on admission Secondary to sepsis and pneumonia Failed BiPAP support and mechanical ventilation was initiated He was treated several days in the intensive care unit with broad-spectrum antibiotics His condition eventually improved and he couldn't be extubated and transferred to [facility] Cultures for pneumococcus were obtained; Pneumococcus was sensitive to penicillin patient's antibiotic coverage was switched to Unasyn and then ceftriaxone Patient was discharged on Augmentin by mouth (3) Bacteremia Is this a current diagnosis for this admission?: YesSummary: 12/14/16 14:50 Gram Stain - Final Sputum Sputum Culture - Final Streptococcus Pneumoniae Reduced Normal Ingrid 12/14/16 10:40 Blood Culture - Final Blood Streptococcus Pneumoniae 12/14/16 10:05 Blood Culture - Final Blood Streptococcus Pneumoniae 12/16/16 14:31 Blood Culture - Final Blood NO GROWTH IN 5 DAYS 12/16/16 13:05 Blood Culture - Final Blood NO GROWTH IN 5 DAYS Patient had pneumococcal bacteremia His repeat blood cultures 2 days after initiation of antibiotic therapy were negative (4) Pneumonia Is this a current diagnosis for this admission?: YesSummary: 12/14/16 14:50 Gram Stain - Final Sputum Sputum Culture - Final Streptococcus Pneumoniae Reduced Normal Ingrid (5) Asthmatic bronchitis Is this a current diagnosis for this admission?: YesSummary: Patient is extremely heavy smoker 1-2 packs a day He did have wheezing, and rhonchi on physical examination He did improve somewhat with steroids and nebs Was discharged on inhalers and short steroid taper (6) Tobacco abuse Is this a current diagnosis for this admission?: YesSummary: Patient did not wish to stop smoking and declined a nicotine patch (7) Cocaine abuse Is this a current diagnosis for this admission?: YesSummary: 12/14/16 13:35 Urine Cocaine Screen UNCONFIRMED POSITIVE (8) Chronic headaches Is this a current diagnosis for this admission?: YesSummary: Patient was complaining of intractable headache Underwent a spinal tap which was essentially negative Patient did not have meningitis It was of his headache is likely to be chronic migraines - Additional Information Resuscitation Status: Full Code Discharge Diet: As Tolerated Discharge Activity: Activity As Tolerated Home Medications: Albuterol Sulfate [Proair Respiclick] 1 puff IH Q4HP PRN 12/14/16 Amlodipine Besylate [Norvasc 10 mg Tablet] 10 mg PO DAILY 12/14/16 Folic Acid [Folvite 1 mg Tablet] 1 mg PO DAILY 12/14/16 Ibuprofen [Motrin 600 mg Tablet] 600 mg PO TID 12/14/16 Multivitamin [Multivitamins] 1 each PO DAILY 12/14/16 Risperidone [Risperdal] 1 mg PO QHS 12/14/16 Risperidone [Risperdal] 2 mg PO QAM 12/14/16 Sertraline HCl [Zoloft] 50 mg PO QAM 12/14/16 Thiamine HCl [Thiamine 100 mg Tablet] 100 mg PO DAILY 12/14/16 Acidoph/L.bulg/Bif.b/S.thermop [Bacid Caplet] 1 each PO BID #20 tablet 12/24/16 Amox Tr/Potassium Clavulanate [Augmentin 875-125 mg Tablet] 1 tab PO BID #20 tablet 12/24/16 Fluticasone/Salmeterol [Advair 250-50 Diskus 14 Dose/Diskus] 1 inh IH Q12H #1 inhaler 12/24/16 Guaifenesin [Mucinex Sr 600 mg Tablet.sa] 600 mg PO Q12A #20 tablet.sa 12/24/16 Prednisone [Deltasone 20 mg Tablet] 40 mg PO QAM #15 tablet 12/24/16 History of Present Illness Patient complains of: Shortness of breath History of Present Illness: YOUSIF SULLIVAN is a 61 year old male patient of the [place] system who presents via EMS with a bout a 2 week history of worsening shortness of breath, cough productive of "cold" and general malaise. He also complains of right-sided chest pain sharp, stabbing in nature worsened with deep breath or cough, alleviated with certain positions and shallow breathing. He reports subjective fevers and chills at home. He denies sick contacts. He has not sought medical treatment for this until today. He denies nausea vomiting or diarrhea. Evaluation in the emergency department he was quite hypoxic on presentation, initially responded to BiPAP therapy, but ultimately fatigued and required urgent intubation and mechanical ventilation by the ER staff. He is currently sedated on a Versed drip and therefore review of systems and medical history is unobtainable from the patient at this time. Hospital Course Hospital Course: See above Physical Exam Vital Signs: Temp Pulse Resp BP Pulse Ox 98.0 F 70 16 148/65 H 93 12/24/16 13:10 12/24/16 13:27 12/24/16 13:27 12/24/16 13:10 12/24/16 13:10 Intake & Output 12/23/16 12/24/16 12/25/16 00:59 00:59 00:59 Intake Total 1338 1466 850 Output Total 2950 1275 400 Balance -1612 191 450 Weight 75 kg 71 kg 71.2 kg General appearance: PRESENT: no acute distress, thin, other - Looks chronically ill Head exam: PRESENT: atraumatic, normocephalic Eye exam: PRESENT: conjunctiva pink, EOMI, PERRLA. ABSENT: scleral icterus Neck exam: PRESENT: carotid bruit Respiratory exam: PRESENT: rhonchi, symmetrical, unlabored Cardiovascular exam: PRESENT: RRR. ABSENT: diastolic murmur, rubs, systolic murmur Pulses: PRESENT: normal dorsalis pedis pul GI/Abdominal exam: PRESENT: normal bowel sounds, soft. ABSENT: distended, guarding, mass, organolmegaly, rebound, tenderness Neurological exam: PRESENT: alert, awake, oriented to person, oriented to place , oriented to time, oriented to situation, CN II-XII grossly intact. ABSENT: motor sensory deficit Skin exam: PRESENT: dry, intact, warm. ABSENT: cyanosis, rash Results Laboratory Results: 12/22/16 05:30 12/22/16 05:30 12/20/16 13:50 Cerebral Spinal Fluid - Csf Gram Stain - Final 12/20/16 13:50 Cerebral Spinal Fluid - Csf CSF Culture - Final NO GROWTH 3 DAYS Labs- Last Values WBC 13.3 10^3/uL (4.0-10.5) H 12/22/16 05:30 RBC 2.82 10^6/uL (4.35-5.55) L 12/22/16 05:30 Hgb 9.1 g/dL (13.5-17.0) L 12/22/16 05:30 Hct 26.5 % (37.9-51.0) L 12/22/16 05:30 MCV 94 fl (80-97) 12/22/16 05:30 MCH 32.1 pg (27.0-33.4) 12/22/16 05:30 MCHC 34.2 g/dL (32.0-36.0) 12/22/16 05:30 RDW 13.4 % (11.5-14.0) 12/22/16 05:30 Plt Count 389 10^3/uL (150-450) 12/22/16 05:30 Total Counted 100 12/20/16 04:40 Seg Neutrophils % 80.4 % (42-78) H 12/22/16 05:30 Seg Neuts % (Manual) 85 % (42-78) H 12/20/16 04:40 Band Neutrophils % 3 % (3-5) 12/20/16 04:40 Lymphocytes % 11.0 % (13-45) L 12/22/16 05:30 Lymphocytes % (Manual) 4 % (13-45) L 12/20/16 04:40 Atypical Lymphs % 2 % (0) 12/19/16 05:45 Monocytes % 7.1 % (3-13) 12/22/16 05:30 Monocytes % (Manual) 6 % (3-13) 12/20/16 04:40 Eosinophils % 1.1 % (0-6) 12/22/16 05:30 Eosinophils % (Manual) 0 % (0-6) 12/20/16 04:40 Basophils % 0.4 % (0-2) 12/22/16 05:30 Basophils % (Manual) 0 % (0-2) 12/20/16 04:40 Metamyelocytes % 2 % (0) H 12/20/16 04:40 Myelocytes % 1 % (0) H 12/14/16 10:05 Absolute Neutrophils 10.7 10^3/uL (1.7-8.2) H 12/22/16 05:30 Abs Neuts (Manual) 14.8 10^3/uL (1.7-8.2) H 12/20/16 04:40 Absolute Lymphocytes 1.5 10^3/uL (0.5-4.7) 12/22/16 05:30 Abs Lymphs (Manual) 0.7 10^3/uL (0.5-4.7) 12/20/16 04:40 Absolute Monocytes 0.9 10^3/uL (0.1-1.4) 12/22/16 05:30 Abs Monocytes (Manual) 1.0 10^3/uL (0.1-1.4) 12/20/16 04:40 Absolute Eosinophils 0.1 10^3/uL (0.0-0.6) 12/22/16 05:30 Absolute Eos (Manual) 0.0 10^3/uL (0.0-0.6) 12/20/16 04:40 Absolute Basophils 0.1 10^3/uL (0.0-0.2) 12/22/16 05:30 Abs Basophils (Manual) 0.0 10^3/uL (0.0-0.2) 12/20/16 04:40 Nucleated RBCs 1 /100 WBC (0) 12/16/16 06:21 Toxic Granulation SLIGHT 12/20/16 04:40 Toxic Vacuolation PRESENT 12/20/16 04:40 Dohle Bodies PRESENT 12/19/16 05:45 Clumped Platelets PRESENT 12/14/16 10:05 Large Platelets PRESENT 12/18/16 06:00 Platelet Comment ADEQUATE 12/20/16 04:40 Polychromasia SLIGHT 12/20/16 04:40 Poikilocytosis SLIGHT 12/20/16 04:40 Anisocytosis SLIGHT 12/18/16 06:00 Ovalocytes SLIGHT 12/20/16 04:40 Stomatocytes 1+ 12/19/16 05:45 Rouleaux SLIGHT 12/20/16 04:40 Schistocytes SLIGHT 12/20/16 04:40 RBC Morph Comment NORMO-CYTIC/CHROMIC 12/19/16 05:45 ESR 119 mm/hr (0-20) H 12/20/16 04:40 PT 13.8 SEC (11.4-15.4) 12/14/16 10:05 INR 1.02 12/14/16 10:05 APTT 34.6 SEC (23.5-35.8) 12/14/16 10:05 D-Dimer 3.90 ug/mL (0.00-0.50) H 12/14/16 10:05 Carbonic Acid 1.04 mmol/L (1.05-1.35) L 12/18/16 06:00 HCO3/H2CO3 Ratio 18:1 12/18/16 06:00 ABG pH 7.37 (7.35-7.45) 12/18/16 06:00 ABG pCO2 34.6 mmHg (35-45) L 12/18/16 06:00 ABG pO2 80.1 mmHg (80-100) 12/18/16 06:00 ABG HCO3 19.6 mmol/L (20-26) L 12/18/16 06:00 ABG Total CO2 20.7 mmol/L (23-27) L 12/18/16 06:00 ABG O2 Saturation 95.7 % (94-98) 12/18/16 06:00 ABG Base Excess -5.0 mmol/L 12/18/16 06:00 VBG pH 7.32 (7.30-7.42) 12/14/16 10:40 VBG pCO2 48.0 mmHg (35-63) 12/14/16 10:40 VBG HCO3 24.4 mmol/L (20-32) 12/14/16 10:40 VBG Base Excess -2.3 mmol/L 12/14/16 10:40 FiO2 30% 12/18/16 06:00 Sodium 136.6 mmol/L (137-145) L 12/22/16 05:30 Potassium 3.6 mmol/L (3.6-5.0) 12/22/16 05:30 Chloride 100 mmol/L (98-107) 12/22/16 05:30 Carbon Dioxide 30 mmol/L (22-30) 12/22/16 05:30 Anion Gap 7 (5-19) 12/22/16 05:30 BUN 16 mg/dL (7-20) 12/22/16 05:30 Creatinine 1.10 mg/dL (0.52-1.25) 12/22/16 05:30 Est GFR ( Amer) > 60 (>60) 12/22/16 05:30 Est GFR (Non-Af Amer) > 60 (>60) 12/22/16 05:30 Glucose 76 mg/dL (75-110) 12/22/16 05:30 Lactic Acid 4.4 mmol/L (0.7-2.1) H 12/14/16 15:50 Calcium 8.4 mg/dL (8.4-10.2) 12/22/16 05:30 Phosphorus 4.1 mg/dL (2.5-4.5) 12/20/16 04:40 Magnesium 1.3 mg/dL (1.6-2.3) L 12/20/16 04:40 Total Bilirubin 0.5 mg/dL (0.2-1.3) 12/19/16 05:45 Direct Bilirubin 0.0 mg/dL (0.0-0.3) 12/19/16 05:45 AST 27 U/L (17-59) 12/19/16 05:45 ALT 43 U/L (21-72) 12/19/16 05:45 Alkaline Phosphatase 42 U/L (38-126) 12/19/16 05:45 Creatine Kinase 42 U/L (55-170) L 12/14/16 10:05 Troponin I < 0.012 ng/mL 12/14/16 10:05 C-Reactive Protein 146.0 mg/L (<10.0) H 12/20/16 04:40 NT-Pro-B Natriuret Pep 369 pg/mL (5-900) 12/14/16 10:05 Total Protein 5.3 g/dL (6.3-8.2) L 12/19/16 05:45 Albumin 2.0 g/dL (3.5-5.0) L 12/19/16 05:45 Urine Color YELLOW 12/14/16 13:35 Urine Appearance SLIGHTLY-CLOUDY 12/14/16 13:35 Urine pH 5.0 (5.0-9.0) 12/14/16 13:35 Ur Specific Stuart 1.013 12/14/16 13:35 Urine Protein 100 mg/dL (NEGATIVE) H 12/14/16 13:35 Urine Glucose (UA) NEGATIVE mg/dL (NEGATIVE) 12/14/16 13:35 Urine Ketones NEGATIVE mg/dL (NEGATIVE) 12/14/16 13:35 Urine Blood SMALL (NEGATIVE) H 12/14/16 13:35 Urine Nitrite NEGATIVE (NEGATIVE) 12/14/16 13:35 Urine Bilirubin NEGATIVE (NEGATIVE) 12/14/16 13:35 Urine Urobilinogen NEGATIVE mg/dL (<2.0) 12/14/16 13:35 Ur Leukocyte Esterase NEGATIVE (NEGATIVE) 12/14/16 13:35 Urine WBC (Auto) 10 /HPF 12/14/16 13:35 Urine RBC (Auto) 0 /HPF 12/14/16 13:35 Urine Mucus (Auto) RARE /LPF 12/14/16 13:35 Urine Ascorbic Acid NEGATIVE (NEGATIVE) 12/14/16 13:35 Fluid Tube Number 3 12/20/16 13:50 CSF Volume 8.0 CC 12/20/16 13:50 CSF Appearance CLEAR 12/20/16 13:50 CSF Color COLORLESS 12/20/16 13:50 CSF WBC 7 /uL (0-5) H 12/20/16 13:50 CSF RBC 0 /uL (0-800) 12/20/16 13:50 CSF Lymphocytes 100 % 12/20/16 13:50 CSF Comment CSF CULTURE ORDERED (CSFY) 12/20/16 13:50 CSF Glucose 66 mg/dL (40-70) 12/20/16 13:52 CSF Total Protein 36 mg/dL (12-60) 12/20/16 13:52 Urine Opiates Screen NEGATIVE 12/14/16 13:35 Urine Methadone Screen NEGATIVE 12/14/16 13:35 Ur Barbiturates Screen NEGATIVE 12/14/16 13:35 Ur Phencyclidine Scrn NEGATIVE 12/14/16 13:35 Ur Amphetamines Screen NEGATIVE 12/14/16 13:35 U Benzodiazepines Scrn NEGATIVE 12/14/16 13:35 Urine Cocaine Screen UNCONFIRMED POSITIVE 12/14/16 13:35 U Marijuana (THC) Screen NEGATIVE 12/14/16 13:35 Serum Alcohol < 10 mg/dL (NONE DETECTED) 12/14/16 15:50 Specimen Source CSF 12/20/16 13:50 Influenza A (Rapid) NEGATIVE (NEGATIVE) 12/14/16 12:05 Influenza B (Rapid) NEGATIVE (NEGATIVE) 12/14/16 12:05 H.influenzae Type B Ag NEGATIVE (NEGATIVE) 12/20/16 13:50 N. meningitidis A/Y Ag NEGATIVE (NEGATIVE) 12/20/16 13:50 N.meningitid C/W135 Ag NEGATIVE (NEGATIVE) 12/20/16 13:50 N.meningi B/E.coli K1 Ag NEGATIVE (NEGATIVE) 12/20/16 13:50 Group B Strep Antigen NEGATIVE (NEGATIVE) 12/20/16 13:50 S. pneumoniae Antigen NEGATIVE (NEGATIVE) 12/20/16 13:50 Slides for Path Review PATHOLOGIST REVIEWED 12/14/16 10:05 Impressions: Abdomen Ultrasound 12/14/16 00:00 IMPRESSION: No acute biliary findings. Trace free fluid around the inferior pole of the right kidney, uncertain significance. PANCREAS PARTIALLY OBSCURED BY GAS. KUB X-Ray 12/14/16 13:38 IMPRESSION: Nasogastric tube tip in the stomach. Chest X-Ray 12/18/16 08:00 IMPRESSION: Right lower lobe pneumonia status post intubation. Appropriate position of support apparatus. No pneumothorax. Guidance Fluoroscopy 12/20/16 00:00 IMPRESSION: Lumbar puncture under fluoroscopy. No immediate complication. Head CT 12/20/16 08:57 IMPRESSION: NORMAL BRAIN CT WITHOUT CONTRAST. Lumbar Puncture 12/20/16 11:40 IMPRESSION: Lumbar puncture under fluoroscopy. No immediate complication. Plan Discharge Plan: Patient was discharged home to be followed at [facility] Patient was also referred to ophthalmology as he complained of severe tearing and eye pain Time Spent: Greater than 30 Minutes
== END 2016-12-24 15:45 | disposition home or self-care (01) | DRG 870 ==
LOC: ER 09:45 → UNDOADMIN 12:04 → EH 12:04 → ICU 12-16 10:08 → 3S 12-20 18:15 → 4N 12-22 18:18
PROVIDERS: ADMIT Internal Medicine; ATTEND Internal Medicine
PROC: 5A1955Z Respiratory Ventilation, Greater than 96 Consecutive Hours (ICD-10-PCS; principal; 2016-12-14)
PROC: 3E0F73Z Introduction of Anti-inflammatory into Respiratory Tract, Via Natural or Artificial Opening (ICD-10-PCS; 2016-12-14)
PROC: 5A09357 Assistance with Respiratory Ventilation, Less than 24 Consecutive Hours, Continuous Positive Airway Pressure (ICD-10-PCS; 2016-12-14)
PROC: 0BH17EZ Insertion of Endotracheal Airway into Trachea, Via Natural or Artificial Opening (ICD-10-PCS; 2016-12-14)
PROC: 009U3ZX Drainage of Spinal Canal, Percutaneous Approach, Diagnostic (ICD-10-PCS; 2016-12-20)
PROC: B01BZZZ Fluoroscopy of Spinal Cord (ICD-10-PCS; 2016-12-20)
DX: A41.9 Sepsis, unspecified organism (principal); J96.01 Acute respiratory failure with hypoxia; J96.02 Acute respiratory failure with hypercapnia; J18.1 Lobar pneumonia, unspecified organism; N17.9 Acute kidney failure, unspecified; J45.901 Unspecified asthma with (acute) exacerbation; E86.0 Dehydration; B95.2 Enterococcus as the cause of diseases classified elsewhere; F14.10 Cocaine abuse, uncomplicated; R51 Headache; R65.20 Severe sepsis without septic shock; F17.210 Nicotine dependence, cigarettes, uncomplicated; I10 Essential (primary) hypertension; M10.9 Gout, unspecified; F43.10 Post-traumatic stress disorder, unspecified; Z79.899 Other long term (current) drug therapy; Z86.73 Personal history of transient ischemic attack (TIA), and cerebral infarction without residual deficits; Z78.1 Physical restraint status
CPT/HCPCS: 36415; 36600; 62270; 70450; 71010; 74000; 76705; 77002; 80048; 80053; 80307; 81001; 82550; 82803; 82945; 83605; 83735; 83880; 84100; 84157; 84484; 85025; 85379; 85610; 85652; 85730; 86140; 86403; 87040; 87070; 87077; 87086; 87186; 87205; 87804; 89050; 93005; 93010; 94002; 94003; 94640; 94660; 94799; 96361; 96365; 96375; 96376; 99291; 99292; C1751; J0295; J0330; J0610; J0692; J0696; J1100; J1650; J1956; J2060; J2250; J2270; J2704; J2930; J2997; J3370; J3475; J3490; J7030; J7060; J7512; J7620; S0028

== ENCOUNTER 2017-01-07 19:03 | Inpatient (IN) | payer OTHER ==
[2017-01-07] MEDS ORDERED: IPRATROPIUM/ALBUTEROL 0.5-2.5 MG/3 ML AMPUL NEB ONE ×2 (19:12→19:37)
[2017-01-07] MEDS ORDERED: ASPIRIN 81 MG TABLET, CHEWABLE PO ONE (19:13)
--- NOTE | 2017-01-07 19:14 | ER Document Report ---
ED Medical Screen (RME) - General Stated Complaint: BODY ACHE Time seen by provider: 19:10 Mode of Arrival: Wheelchair Information source: Patient Notes: 61-year-old smoker male complaining of generalized bodyaches and shortness of breath since this morning. He is to a pulse ox of 89% in triage. I placed him on 2 L nasal cannula oxygen in triage. He was treated for pneumonia with a 10 day hospitalization and discharged on December 24. I have greeted and performed a rapid initial assessment of this patient. A comprehensive ED assessment, evaluation of the patient, analysis of test results , and completion of the medical decision making process will be conducted by additional ED providers. TRAVEL OUTSIDE OF THE [place] IN LAST 30 DAYS: No - Related Data Allergies/Adverse Reactions: No Known Allergies Allergy (Verified 01/07/17 19:10) Past Medical History - Past Medical History Cardiac Medical History: Reports: Hx Hypertension Neurological Medical History: Reports: Hx Cerebrovascular Accident Musculoskeltal Medical History: Reports Hx Gout Psychiatric Medical History: Reports: Hx Depression, Hx Post Traumatic Stress Disorder Past Surgical History: Reports: Hx Orthopedic Surgery - shoulder, knee, ankle - Immunizations Immunizations up to date: Yes Hx Diphtheria, Pertussis, Tetanus Vaccination: Yes Physical Exam - Vital signs Vitals: Temp Pulse Resp BP Pulse Ox 100.2 F 102 H 34 H 140/64 H 89 L 01/07/17 19:07 01/07/17 19:07 01/07/17 19:07 01/07/17 19:07 01/07/17 19:07 Course - Vital Signs Vital signs: Temp Pulse Resp BP Pulse Ox 100.2 F 102 H 34 H 140/64 H 89 L 01/07/17 19:07 01/07/17 19:07 01/07/17 19:07 01/07/17 19:07 01/07/17 19:07
[2017-01-07] MEDS ORDERED: METHYLPREDNISOLONE INJ 125 MG/2 ML SDV IV ONE (19:37)
[2017-01-07] MEDS ORDERED: ACETAMINOPHEN 650 MG SUPP.RECT PR ONE (19:38)
--- NOTE | 2017-01-07 19:40 | ER Document Report ---
ED Respiratory Problem - General Mode of Arrival: Wheelchair Information source: Patient, Relative - daughter Cannot obtain history due to: Dementia TRAVEL OUTSIDE OF THE [place] IN LAST 30 DAYS: No - HPI Patient complains to provider of: Other - breathing difficulty Onset: This morning Associated symptoms: Other - See above <NILO OLIVAS - Last Filed: 01/07/17 19:36> <REBECCA DUNCAN - Last Filed: 01/07/17 23:10> - General Chief Complaint: Breathing Difficulty Stated Complaint: breathing difficulty Notes: Patient is a 61 year old male with a past medical history including asthma and bronchitis, who presents to the emergency department with his daughter complaining of difficulty breathing. Per daughter patient was recently diagnosed with pneumonia and she is worried that it hasn't gone away. Daughter states that the patient started having difficulty breathing this morning. Patient also complains of body aches. (NILO OLIVAS) - Related Data Allergies/Adverse Reactions: No Known Allergies Allergy (Verified 01/07/17 19:10) Past Medical History - General Information source: Patient - Social History Smoking Status: Current Every Day Smoker Chew tobacco use (# tins/day): No Frequency of alcohol use: None Drug Abuse: None Family History: Reviewed & Not Pertinent Patient has suicidal ideation: No Patient has homicidal ideation: No - Past Medical History Cardiac Medical History: Reports: Hx Hypertension Neurological Medical History: Reports: Hx Cerebrovascular Accident Musculoskeltal Medical History: Reports Hx Gout Psychiatric Medical History: Reports: Hx Depression, Hx Post Traumatic Stress Disorder Past Surgical History: Reports: Hx Orthopedic Surgery - shoulder, knee, ankle - Immunizations Immunizations up to date: Yes Hx Diphtheria, Pertussis, Tetanus Vaccination: Yes <NILO OLIVAS - Last Filed: 01/07/17 19:36> Review of Systems - Review of Systems Constitutional: See HPI, Other - body aches EENT: No symptoms reported Cardiovascular: No symptoms reported Respiratory: Other - Breathing difficulty Gastrointestinal: No symptoms reported Genitourinary: No symptoms reported Male Genitourinary: No symptoms reported Musculoskeletal: No symptoms reported Skin: No symptoms reported Hematologic/Lymphatic: No symptoms reported Neurological/Psychological: No symptoms reported -: Yes All other systems reviewed and negative <NILO OLIVAS - Last Filed: 01/07/17 19:36> Physical Exam - Vital signs Interpretation: Normal - General General appearance: Appears well, Alert - HEENT Head: Normocephalic, Atraumatic Eyes: Normal Pupils: PERRL - Respiratory Respiratory status: No respiratory distress Chest status: Nontender Breath sounds: Normal Chest palpation: Normal - Cardiovascular Rhythm: Regular Heart sounds: Normal auscultation Murmur: No - Abdominal Inspection: Normal Distension: No distension Bowel sounds: Normal Tenderness: Nontender Organomegaly: No organomegaly - Back Back: Normal, Nontender - Extremities General upper extremity: Normal inspection, Nontender, Normal color, Normal ROM , Normal temperature General lower extremity: Normal inspection, Nontender, Normal color, Normal ROM , Normal temperature, Normal weight bearing. No: Sonido's sign - Neurological Neuro grossly intact: Yes Cognition: Normal Orientation: AAOx4 [place] Coma Scale Eye Opening: Spontaneous [place] Coma Scale Verbal: Oriented [place] Coma Scale Motor: Obeys Commands Reinier Coma Scale Total: 15 Speech: Normal Motor strength normal: LUE, RUE, LLE, RLE Sensory: Normal - Psychological Associated symptoms: Normal affect, Normal mood - Skin Skin Temperature: Warm Skin Moisture: Dry Skin Color: Normal <NILO OLIVAS - Last Filed: 01/07/17 19:36> Course <NILO OLIVAS - Last Filed: 01/07/17 19:36> - Laboratory Result Diagrams: 01/07/17 19:28 01/07/17 19:28 - Diagnostic Test Radiology reviewed: Reports reviewed <REBECCA DUNCAN - Last Filed: 01/07/17 23:10> - Re-evaluation Re-evalutation: 01/07/17 Patient is a 7-year-old male who presents with a fever and difficulty breathing. Patient was recently admitted for pneumonia. X-ray shows persistent versus recurrent pneumonia. Patient with fever. Patient has been given steroids, nebulizer treatment, and magnesium. Continues to wheeze. Patient will be started on BiPAP due to continued wheezing and hypoxia when he falls asleep. Discussed with family. Stable at time of admission. (REBECCA DUNCAN) - Vital Signs Vital signs: Temp Pulse Resp BP Pulse Ox 98.3 F 74 20 139/59 H 100 01/07/17 23:03 01/07/17 23:03 01/07/17 23:03 01/07/17 23:03 01/07/17 23:03 - Laboratory Laboratory results interpreted by me: 01/07/17 01/07/17 01/07/17 19:28 19:28 19:28 WBC 12.2 H RBC 3.33 L Hgb 10.9 L Hct 32.2 L Seg Neutrophils % 81.6 H Lymphocytes % 6.8 L Absolute Neutrophils 9.9 H ABG pO2 51.4 L ABG HCO3 27.0 H ABG Total CO2 28.2 H ABG O2 Saturation 88.1 L Creatinine 1.61 H Est GFR ( Amer) 53 L Est GFR (Non-Af Amer) 44 L AST 16 L ALT 12 L Creatine Kinase 25 L Critical Care Note - Critical Care Note Total time excluding time spent on procedures (mins): 45 - evaluation and management of respiratory distress, multiple re-evaluations, diagnosis of pneumonia, initiation of BiPAP, multiple re-evaluations, coordination of admission <REBECCA DUNCAN - Last Filed: 01/07/17 23:10> Discharge <NILO OLIVAS - Last Filed: 01/07/17 19:36> - Discharge Admitting Provider: [facility] Unit Admitted: [facility] <REBECCA DUNCAN - Last Filed: 01/07/17 23:10> - Discharge Clinical Impression: Respiratory distress, COPD exacerbation Pneumonia Qualifiers: Pneumonia type: due to unspecified organism Laterality: unspecified laterality Lung location: unspecified part of lung Qualified Code(s): J18.9 - Pneumonia, unspecified organism Condition: Stable Disposition: ADMITTED INPATIENT Scribe Attestation: 01/07/17 23:09 I personally performed the services described in the documentation, reviewed and edited the documentation which was dictated to the scribe in my presence, and it accurately records my words and actions. (REBECCA DUNCAN) Scribe Documentation - Scribe Written by Opal:: opal Humphrey, 01/07/171939 acting as scribe for :: Margie <NILO OLIVAS - Last Filed: 01/07/17 19:36>
--- NOTE | 2017-01-07 19:44 | EKG REPORT ---
SEVERITY:- NORMAL ECG - SINUS RHYTHM : Confirmed by: Cirilo Smith MD 07-Jan-2017 19:43:05
[2017-01-07 19:45] LABS: ARTERIAL BLOOD BASE EXCESS 2.9 mmol/L; ARTERIAL BLOOD O2 SATURATION 88.1 % (94-98)
[2017-01-07 19:46] LABS: ABSOLUTE EOSINOPHILS # (AUTO) 0.2 10^3/uL (0.0-0.6); ABSOLUTE LYMPHOCYTES (AUTO) 0.8 10^3/uL (0.5-4.7); ABSOLUTE MONOCYTES (AUTO) 1.2 10^3/uL (0.1-1.4); ABSOLUTE NEUT (AUTO) 9.9 10^3/uL (1.7-8.2); BASOPHILS % (AUTO) 0.3 % (0-2); EOSINOPHILS % (AUTO) 1.8 % (0-6); HEMATOCRIT 32.2 % (37.9-51.0); HEMOGLOBIN 10.9 g/dL (13.5-17.0); HGB HCT DIFFERENCE 0.5; LYMPHOCYTES % (AUTO) 6.8 % (13-45); MEAN CORPUSCULAR HEMOGLOBIN 32.7 pg (27.0-33.4); MEAN CORPUSCULAR HGB CONC 33.8 g/dL (32.0-36.0); MEAN CORPUSCULAR VOLUME 97 fl (80-97); MONOCYTES % (AUTO) 9.5 % (3-13); RED BLOOD COUNT 3.33 10^6/uL (4.35-5.55); RED CELL DISTRIBUTION WIDTH 13.9 % (11.5-14.0); SEGMENTED NEUTROPHILS % (AUTO) 81.6 % (42-78); WHITE BLOOD COUNT 12.2 10^3/uL (4.0-10.5)
[2017-01-07 20:05] LABS: ALANINE AMINOTRANSFERASE 12 U/L (21-72); ALKALINE PHOSPHATASE 69 U/L (38-126); ANION GAP 11 (5-19); ASPARTATE AMINO TRANSFERASE 16 U/L (17-59); BILIRUBIN,TOTAL 0.8 mg/dL (0.2-1.3); BLOOD UREA NITROGEN 15 mg/dL (7-20); CALCIUM 9.6 mg/dL (8.4-10.2); CARBON DIOXIDE 29 mmol/L (22-30); CHLORIDE 103 mmol/L (98-107); CREATINE KINASE 25 U/L (55-170); CREATININE RESULT 1.61 mg/dL (0.52-1.25); GLUCOSE 100 mg/dL (75-110); MAGNESIUM 1.8 mg/dL (1.6-2.3); POTASSIUM 4.1 mmol/L (3.6-5.0); SODIUM 142.9 mmol/L (137-145); TOTAL PROTEIN 8.2 g/dL (6.3-8.2)
[2017-01-07] MEDS ORDERED: CEFEPIME 2 GM/D5W RTU 50 ML IV ONE (20:30)
[2017-01-07] MEDS ORDERED: LEVOFLOXACIN 750 MG/D5W RTU 150 ML IV ONE (20:30)
[2017-01-07] MEDS ORDERED: VANCOMYCIN HCL INJ 1000 MG VIAL IV ONE (20:30)
[2017-01-07] MEDS ORDERED: ACETAMINOPHEN 325 MG TABLET PO PRN (20:33)
[2017-01-07] MEDS ORDERED: GUAIFENESIN SYRP 200 MG/10 ML UDC PO PRN (20:33)
[2017-01-07] MEDS ORDERED: IPRATROPIUM/ALBUTEROL 0.5-2.5 MG/3 ML AMPUL NEB PRN (20:33)
[2017-01-07 20:36] LABS: CREATINE KINASE MB < 0.22 ng/mL (<4.55); TROPONIN I < 0.012 ng/mL
[2017-01-07] MEDS ORDERED: NORMAL SALINE 1000 ML 1,000 ML IV SCH (20:45)
[2017-01-07] MEDS ORDERED: MAGNESIUM SULFATE/D5W 100 ML IV SCH (20:45)
[2017-01-07] MEDS ORDERED: LEVOFLOXACIN 750 MG/D5W RTU 750 MG/150 ML RTUPB IV ONE (21:00)
[2017-01-07] MEDS ORDERED: INFLUENZA ADLT QUAD (36MOS+) 2016-17 VAC 0.5 ML SYR IM PRN (23:12)
[2017-01-07] MEDS: HEPARIN SOD (PORCINE) 5,000 UNIT/ML 1 ML SYRINGE SUBCUT SCH (23:27)
[2017-01-07] MEDS ORDERED: FLUTICASONE NASAL SPRAY 50 MCG/SPRY 120 SPRAY/16 GM ONE (23:34)
[2017-01-07] MEDS ORDERED: VANCOMYCIN HCL INJ 500 MG VIAL ONE (23:34)
[2017-01-07] MEDS ORDERED: VANCOMYCIN HCL INJ 1000 MG VIAL ONE (23:34)
[2017-01-07] MEDS ORDERED: FLUTICASONE/SALMETEROL DISKUS 250-50 MCG/DOSE IH ONE (23:35)
[2017-01-08] MEDS: FLUTICASONE NASAL SPRAY 50 MCG/SPRY 120 SPRAY/16 GM NASL SCH ×3 (00:04→22:11)
[2017-01-08] MEDS: FLUTICASONE/SALMETEROL DISKUS 250-50 MCG/DOSE IH SCH ×3 (00:04→22:10)
[2017-01-08] MEDS: RISPERIDONE 1 MG TABLET PO SCH ×3 (00:04→22:11)
[2017-01-08] MEDS: IPRATROPIUM/ALBUTEROL 0.5-2.5 MG/3 ML AMPUL NEB SCH ×4 (02:09→19:27)
--- NOTE | 2017-01-08 04:33 | PDOC H&P ---
History of Present Illness Admission Date/PCP: 01/07/17 20:34 Patient complains of: Shortness of breath History of Present Illness: YOUSIF SULLIVAN is a 61 year old male with a past medical history of COPD tobacco ongoing crack cocaine abuse and recent pneumonia. Who is in his usual state of health until approximately 24 hours prior to presentation smoking crack cocaine developing acute shortness of breath prompting to seek evaluation emergency room where his found to have scattered crackles on exam pulmonary edema on imaging and referred to the hospitalist for admission. Patient denies chest pain nausea vomiting diaphoresis. Past Medical History Cardiac Medical History: Reports: Hypertension Pulmonary Medical History: Reports: Bronchitis, Chronic Obstructive Pulmonary Disease (COPD), Pneumonia, Other - Recurrent pulmonary edema with crack cocaine use Musculoskeltal Medical History: Reports: Gout Psychiatric Medical History: Reports: Depression, Post Traumatic Stress Disorder , Substance Abuse, Tobacco Dependency Past Surgical History Past Surgical History: Reports: Orthopedic Surgery - shoulder, knee, ankle Social History Information Source: Patient, [facility] Records Lives with: Family Smoking Status: Current Every Day Smoker Frequency of Alcohol Use: Heavy Hx Recreational Drug Use: No Drugs: Cocaine, Marijuana Hx Prescription Drug Abuse: No - Advance Directive Resuscitation Status: Full Code Family History Family History: CAD, COPD Parental Family History Reviewed: Yes Children Family History Reviewed: Yes Sibling(s) Family History Reviewed.: Yes Medication/Allergy Home Medications: Albuterol Sulfate [Proair Respiclick] 1 puff IH Q4HP PRN 12/14/16 Amlodipine Besylate [Norvasc 10 mg Tablet] 10 mg PO DAILY 12/14/16 Folic Acid [Folvite 1 mg Tablet] 1 mg PO DAILY 12/14/16 Ibuprofen [Motrin 600 mg Tablet] 600 mg PO TID 12/14/16 Multivitamin [Multivitamins] 1 each PO DAILY 12/14/16 Risperidone [Risperdal] 1 mg PO QHS 12/14/16 Risperidone [Risperdal] 2 mg PO QAM 12/14/16 Sertraline HCl [Zoloft] 50 mg PO QAM 12/14/16 Thiamine HCl [Thiamine 100 mg Tablet] 100 mg PO DAILY 12/14/16 Acidoph/L.bulg/Bif.b/S.thermop [Bacid Caplet] 1 each PO BID #20 tablet 12/24/16 Amox Tr/Potassium Clavulanate [Augmentin 875-125 mg Tablet] 1 tab PO BID #20 tablet 12/24/16 Fluticasone/Salmeterol [Advair 250-50 Diskus 14 Dose/Diskus] 1 inh IH Q12H #1 inhaler 12/24/16 Guaifenesin [Mucinex Sr 600 mg Tablet.sa] 600 mg PO Q12A #20 tablet.sa 12/24/16 Prednisone [Deltasone 20 mg Tablet] 40 mg PO QAM #15 tablet 12/24/16 Allergies/Adverse Reactions: No Known Allergies Allergy (Verified 01/07/17 19:10) Review of Systems Constitutional: ABSENT: chills, fever(s), headache(s), weight gain, weight loss Eyes: ABSENT: visual disturbances Ears: ABSENT: hearing changes Cardiovascular: ABSENT: chest pain, dyspnea on exertion, edema, orthropnea, palpitations Respiratory: PRESENT: cough, dyspnea. ABSENT: hemoptysis, sputum Gastrointestinal: ABSENT: abdominal pain, constipation, diarrhea, hematemesis, hematochezia, nausea, vomiting Genitourinary: ABSENT: dysuria, hematuria Musculoskeletal: ABSENT: joint swelling Integumentary: ABSENT: rash, wounds Neurological: ABSENT: abnormal gait, abnormal speech, confusion, dizziness, focal weakness, syncope Psychiatric: PRESENT: anxiety, depression. ABSENT: homidical ideation, suicidal ideation Endocrine: ABSENT: cold intolerance, heat intolerance, polydipsia, polyuria Hematologic/Lymphatic: ABSENT: easy bleeding, easy bruising Physical Exam Vital Signs: Temp Pulse Resp BP Pulse Ox 98.4 F 54 L 12 132/67 H 99 01/07/17 23:40 01/08/17 02:10 01/08/17 02:50 01/07/17 23:40 01/08/17 02:50 Intake & Output 01/06/17 01/07/17 01/08/17 11:59 11:59 11:59 Weight 68.9 kg General appearance: PRESENT: cooperative, disheveled, mild distress, thin Head exam: PRESENT: atraumatic, normocephalic Eye exam: PRESENT: conjunctiva pink, EOMI, PERRLA. ABSENT: scleral icterus Ear exam: PRESENT: normal external ear exam Mouth exam: PRESENT: dry mucosa Teeth exam: PRESENT: poor dentation Neck exam: ABSENT: carotid bruit, JVD, lymphadenopathy, thyromegaly Respiratory exam: PRESENT: accessory muscle use, crackles, prolonged expiratory phas, symmetrical, tachypnea. ABSENT: chest wall tenderness Cardiovascular exam: PRESENT: RRR. ABSENT: diastolic murmur, rubs, systolic murmur Pulses: PRESENT: normal dorsalis pedis pul Vascular exam: PRESENT: normal capillary refill GI/Abdominal exam: PRESENT: normal bowel sounds, soft. ABSENT: distended, guarding, mass, organolmegaly, rebound, tenderness Rectal exam: PRESENT: deferred Extremities exam: PRESENT: full ROM. ABSENT: calf tenderness, clubbing, pedal edema Neurological exam: PRESENT: alert, awake, oriented to person, oriented to place , oriented to time, oriented to situation, CN II-XII grossly intact. ABSENT: motor sensory deficit Psychiatric exam: PRESENT: anxious, depressed, manic. ABSENT: homicidal ideation, suicidal ideation Skin exam: PRESENT: dry, intact, warm. ABSENT: cyanosis, rash Results Impressions: Chest X-Ray 01/07/17 19:13 IMPRESSION: Trace right pleural fluid in the major and minor fissures with minimal persistent right perihilar and right retrocardiac airspace disease. This is improved compared to 12/18/2016. Assessment & Plan - Diagnosis (1) Pulmonary edema Qualifiers: Chronicity: acute Qualified Code(s): J81.0 - Acute pulmonary edema Is this a current diagnosis for this admission?: YesPlan: Patient regularly uses crack cocaine, symptoms began abruptly after inhalation , initiate oxygen with BiPAP, albuterol and Atrovent, and supportive care (2) COPD exacerbation Is this a current diagnosis for this admission?: YesPlan: Avoidance of tobacco and crack cocaine, empiric antibiotics given recent pneumonia, albuterol and Atrovent (3) Cocaine abuse Is this a current diagnosis for this admission?: YesPlan: Cessation counseling (4) Tobacco abuse Is this a current diagnosis for this admission?: YesPlan: Tobacco Dependence patient received tobacco cessation counseling and offered nicotine replacement options - Time Time Spent: 30 to 50 Minutes - Inpatient Certification Medical Necessity: Need Close Monitoring Due to Risk of Patient Decompensation
[2017-01-08 05:17] LABS: HEMATOCRIT 27.9 % (37.9-51.0); HEMOGLOBIN 9.4 g/dL (13.5-17.0); HGB HCT DIFFERENCE 0.3; MEAN CORPUSCULAR HEMOGLOBIN 32.6 pg (27.0-33.4); MEAN CORPUSCULAR HGB CONC 33.6 g/dL (32.0-36.0); MEAN CORPUSCULAR VOLUME 97 fl (80-97); RED BLOOD COUNT 2.88 10^6/uL (4.35-5.55); RED CELL DISTRIBUTION WIDTH 13.4 % (11.5-14.0); WHITE BLOOD COUNT 13.6 10^3/uL (4.0-10.5)
[2017-01-08] MEDS: GUAIFENESIN 600 MG TABLET.SA PO SCH ×2 (05:17→17:04)
[2017-01-08] MEDS: HEPARIN SOD (PORCINE) 5,000 UNIT/ML 1 ML SYRINGE SUBCUT SCH ×3 (05:17→22:10)
[2017-01-08 05:36] LABS: ANION GAP 9 (5-19); BLOOD UREA NITROGEN 18 mg/dL (7-20); CARBON DIOXIDE 25 mmol/L (22-30); CHLORIDE 103 mmol/L (98-107); CREATININE RESULT 1.24 mg/dL (0.52-1.25); GLUCOSE 180 mg/dL (75-110); POTASSIUM 4.5 mmol/L (3.6-5.0); SODIUM 137.2 mmol/L (137-145)
[2017-01-08 05:40] LABS: BAND NEUTROPHILS % (MANUAL) 2 % (3-5); BASOPHILS % (MANUAL) 0 % (0-2); EOSINOPHILS % (MANUAL) 0 % (0-6); LYMPHOCYTES % (MANUAL) 1 % (13-45); TOTAL CELLS COUNTED 100
[2017-01-08 05:42] LABS: ROULEAUX SLIGHT
[2017-01-08 05:43] LABS: TOXIC GRANULATION 1+
[2017-01-08] MEDS ORDERED: PREDNISONE 20 MG TABLET PO SCH (08:00)
[2017-01-08] MEDS: AMLODIPINE BESYLATE 10 MG TABLET PO SCH (09:04)
[2017-01-08] MEDS: THIAMINE HCL 100 MG TABLET PO SCH (09:05)
[2017-01-08] MEDS: FOLIC ACID 1 MG TABLET PO SCH (09:05)
--- NOTE | 2017-01-08 10:11 | PDOC PROGRESS REPORT ---
Subjective Progress Note for:: 01/08/17 Subjective:: Patient is complaining of mild shortness of breath He has no pleuritic chest pain no fever no chills He was on BiPAP support during the night He appears quite comfortable alert and awake Physical Exam Vital Signs: Temp Pulse Resp BP Pulse Ox 97.7 F 56 L 19 124/70 100 01/08/17 07:30 01/08/17 07:30 01/08/17 07:30 01/08/17 07:30 01/08/17 07:30 Intake & Output 01/07/17 01/08/17 01/09/17 00:59 00:59 00:59 Intake Total 1150 Balance 1150 Weight 68.9 kg 68.9 kg General appearance: PRESENT: cooperative, mild distress Head exam: PRESENT: atraumatic, normocephalic Eye exam: PRESENT: conjunctiva pink, EOMI, PERRLA. ABSENT: scleral icterus Neck exam: ABSENT: carotid bruit, JVD, lymphadenopathy, thyromegaly Respiratory exam: PRESENT: decreased breath sounds, prolonged expiratory phas, wheezes. ABSENT: accessory muscle use Cardiovascular exam: PRESENT: RRR. ABSENT: diastolic murmur, rubs, systolic murmur Pulses: PRESENT: normal dorsalis pedis pul GI/Abdominal exam: PRESENT: normal bowel sounds, soft. ABSENT: distended, guarding, mass, organolmegaly, rebound, tenderness Neurological exam: PRESENT: alert, awake, oriented to person, oriented to place , oriented to time, oriented to situation, CN II-XII grossly intact. ABSENT: motor sensory deficit Results Laboratory Results: 01/08/17 04:49 01/08/17 04:49 01/08/17 01/08/17 04:49 04:49 WBC 13.6 H RBC 2.88 L Hgb 9.4 L Hct 27.9 L MCV 97 MCH 32.6 MCHC 33.6 RDW 13.4 Plt Count 178 Seg Neutrophils % Not Reportable Lymphocytes % Not Reportable Monocytes % Not Reportable Eosinophils % Not Reportable Basophils % Not Reportable Absolute Neutrophils Not Reportable Absolute Lymphocytes Not Reportable Absolute Monocytes Not Reportable Absolute Eosinophils Not Reportable Absolute Basophils Not Reportable Sodium 137.2 Potassium 4.5 Chloride 103 Carbon Dioxide 25 Anion Gap 9 BUN 18 Creatinine 1.24 Est GFR ( Amer) > 60 Est GFR (Non-Af Amer) 59 L Glucose 180 H Calcium 9.0 EKG Comments: SINUS RHYTHM Impressions: Chest X-Ray 01/07/17 19:13 IMPRESSION: Trace right pleural fluid in the major and minor fissures with minimal persistent right perihilar and right retrocardiac airspace disease. This is improved compared to 12/18/2016. Assessment & Plan - Diagnosis (1) COPD exacerbation Is this a current diagnosis for this admission?: Yes (2) Pneumonia Qualifiers: Pneumonia type: due to unspecified organism Laterality: unspecified laterality Lung location: unspecified part of lung Qualified Code(s) : J18.9 - Pneumonia, unspecified organism Is this a current diagnosis for this admission?: YesPlan: Continue broad-spectrum antibiotics A CTA of the chest will be performed (3) Acute respiratory failure with hypoxia Is this a current diagnosis for this admission?: YesPlan: Continue oxygen supplementation and BiPAP support; respiratory failure secondary to COPD exacerbation and pneumonia Pulmonary embolism should be ruled out as patient was extremely hypoxemic Noted that the BNP was within normal range CHF is unlikely; but an echocardiogram will be performed in a.m. (4) Cocaine abuse Is this a current diagnosis for this admission?: Yes - Time Time Spent with patient: 25-34 minutes
[2017-01-08] MEDS: DIAZEPAM 2 MG TABLET PO PRN (11:02)
[2017-01-08] MEDS ORDERED: LACTOBACILLUS ACIDOPHILUS 250 MG TAB PO ONE (11:30)
[2017-01-08 12:29] LABS: URINE BARBITURATES SCREEN NEGATIVE; URINE METHADONE SCREEN NEGATIVE; URINE OPIATES LOW NEGATIVE; URINE PHENCYCLIDINE SCREEN NEGATIVE
[2017-01-08] MEDS: LACTOBACILLUS ACIDOPHILUS 250 MG TAB PO SCH (17:04)
[2017-01-08] MEDS: LEVOFLOXACIN 750 MG/D5W RTU 150 ML IV SCH (17:05)
[2017-01-08] MEDS: CEFEPIME 1 GM/D5W RTU 50 ML IV SCH (22:09)
[2017-01-09] MEDS: IPRATROPIUM/ALBUTEROL 0.5-2.5 MG/3 ML AMPUL NEB SCH ×4 (01:26→19:59)
[2017-01-09 04:48] LABS: HEMATOCRIT 26.8 % (37.9-51.0); HGB HCT DIFFERENCE 0.2; MEAN CORPUSCULAR HEMOGLOBIN 32.8 pg (27.0-33.4); MEAN CORPUSCULAR HGB CONC 33.5 g/dL (32.0-36.0); MEAN CORPUSCULAR VOLUME 98 fl (80-97); RED BLOOD COUNT 2.73 10^6/uL (4.35-5.55)
[2017-01-09 05:04] LABS: ANION GAP 11 (5-19); BLOOD UREA NITROGEN 24 mg/dL (7-20); CALCIUM 9.5 mg/dL (8.4-10.2); CARBON DIOXIDE 26 mmol/L (22-30); CHLORIDE 103 mmol/L (98-107); CREATININE RESULT 1.26 mg/dL (0.52-1.25); GLUCOSE 156 mg/dL (75-110); POTASSIUM 4.5 mmol/L (3.6-5.0); SODIUM 139.7 mmol/L (137-145)
[2017-01-09 05:42] LABS: BASOPHILS % (MANUAL) 0 % (0-2); EOSINOPHILS % (MANUAL) 0 % (0-6); LYMPHOCYTES % (MANUAL) 3 % (13-45); TOTAL CELLS COUNTED 100
[2017-01-09 05:45] LABS: ANISOCYTOSIS SLIGHT
[2017-01-09] MEDS: GUAIFENESIN 600 MG TABLET.SA PO SCH ×2 (05:53→17:24)
[2017-01-09] MEDS: HEPARIN SOD (PORCINE) 5,000 UNIT/ML 1 ML SYRINGE SUBCUT SCH ×3 (05:53→21:55)
[2017-01-09] MEDS: DIAZEPAM 2 MG TABLET PO PRN ×2 (05:55→17:24)
[2017-01-09] MEDS: RISPERIDONE 1 MG TABLET PO SCH ×2 (08:42→21:55)
[2017-01-09] MEDS: PREDNISONE 20 MG TABLET PO SCH (08:42)
[2017-01-09] MEDS: FLUTICASONE/SALMETEROL DISKUS 250-50 MCG/DOSE IH SCH ×2 (08:43→21:55)
[2017-01-09] MEDS: THIAMINE HCL 100 MG TABLET PO SCH (09:18)
[2017-01-09] MEDS: FOLIC ACID 1 MG TABLET PO SCH (09:18)
[2017-01-09] MEDS: AMLODIPINE BESYLATE 10 MG TABLET PO SCH (09:18)
[2017-01-09] MEDS: CEFEPIME 1 GM/D5W RTU 50 ML IV SCH ×2 (09:18→21:56)
[2017-01-09] MEDS: LACTOBACILLUS ACIDOPHILUS 250 MG TAB PO SCH ×2 (09:18→17:24)
[2017-01-09] MEDS: FLUTICASONE NASAL SPRAY 50 MCG/SPRY 120 SPRAY/16 GM NASL SCH ×2 (09:19→21:56)
--- NOTE | 2017-01-09 16:16 | PDOC PROGRESS REPORT ---
Subjective Progress Note for:: 01/09/17 Subjective:: Patient is feeling a lot better Still at times dyspneic but oxygenating adequately on a nasal cannula We discussed at length the risks of continued cocaine use; Patient may be suffering from crack lung and secondary pneumonia associated with it Patient did have physical therapy and he could ambulate Physical Exam Vital Signs: Temp Pulse Resp BP Pulse Ox 98.1 F 85 18 125/61 99 01/09/17 15:47 01/09/17 15:47 01/09/17 15:47 01/09/17 15:47 01/09/17 15:47 Intake & Output 01/08/17 01/09/17 01/10/17 00:59 00:59 00:59 Intake Total 3224 3390 Output Total 1300 Balance 3224 2090 Weight 68.9 kg 68.9 kg 68.9 kg General appearance: PRESENT: no acute distress Head exam: PRESENT: atraumatic, normocephalic Eye exam: PRESENT: conjunctiva pink, EOMI, PERRLA. ABSENT: scleral icterus Respiratory exam: PRESENT: decreased breath sounds, rhonchi, wheezes. ABSENT: rales Cardiovascular exam: PRESENT: RRR. ABSENT: diastolic murmur, rubs, systolic murmur GI/Abdominal exam: PRESENT: normal bowel sounds, soft. ABSENT: distended, guarding, mass, organolmegaly, rebound, tenderness Extremities exam: PRESENT: full ROM. ABSENT: calf tenderness, clubbing, pedal edema Neurological exam: PRESENT: alert, awake, oriented to person, oriented to place , oriented to time, oriented to situation, CN II-XII grossly intact. ABSENT: motor sensory deficit Results Laboratory Results: 01/09/17 04:09 01/09/17 04:09 01/09/17 01/09/17 04:09 04:09 WBC 20.0 H RBC 2.73 L Hgb 9.0 L Hct 26.8 L MCV 98 H MCH 32.8 MCHC 33.5 RDW 14.0 Plt Count 192 Seg Neutrophils % Not Reportable Lymphocytes % Not Reportable Monocytes % Not Reportable Eosinophils % Not Reportable Basophils % Not Reportable Absolute Neutrophils Not Reportable Absolute Lymphocytes Not Reportable Absolute Monocytes Not Reportable Absolute Eosinophils Not Reportable Absolute Basophils Not Reportable Sodium 139.7 Potassium 4.5 Chloride 103 Carbon Dioxide 26 Anion Gap 11 BUN 24 H Creatinine 1.26 H Est GFR ( Amer) > 60 Est GFR (Non-Af Amer) 58 L Glucose 156 H Calcium 9.5 Impressions: Chest X-Ray 01/07/17 19:13 IMPRESSION: Trace right pleural fluid in the major and minor fissures with minimal persistent right perihilar and right retrocardiac airspace disease. This is improved compared to 12/18/2016. Chest/Abdomen CTA 01/08/17 10:06 IMPRESSION: Trace right pleural effusion loculated in the major fissure Airspace disease in the right lower lobe atelectasis versus pneumonia. Assessment & Plan - Diagnosis (1) COPD exacerbation Is this a current diagnosis for this admission?: YesPlan: Continue nebs steroids Nicotine patch (2) Pneumonia Qualifiers: Pneumonia type: due to unspecified organism Laterality: unspecified laterality Lung location: unspecified part of lung Qualified Code(s) : J18.9 - Pneumonia, unspecified organism Is this a current diagnosis for this admission?: YesPlan: Continue Levaquin and cefepime (3) Acute respiratory failure with hypoxia Is this a current diagnosis for this admission?: YesPlan: Improved Continue O2 supplementation (4) Cocaine abuse Is this a current diagnosis for this admission?: Yes - Time Time Spent with patient: Reevaluate patient's in a.m. for discharge Time Spent with patient: 25-34 minutes
[2017-01-09] MEDS: LEVOFLOXACIN 750 MG/D5W RTU 150 ML IV SCH (17:24)
--- NOTE | 2017-01-09 19:12 | XCELERA REPORT ---
[address] [address] Transthoracic Echocardiogram Report Name: YOUSIF SULLIVAN Age: 61 yrs Gender: Male : 1955 Patient Status: Inpatient Patient Location: 5\S\533\S\A Study Date: 01/09/2017 08:08 AM Height: 70 in Weight: 151 lb BSA: 1.9 m2 Procedure: A two-dimensional transthoracic echocardiogram with color flow and Doppler was performed. The study was technically difficult with many images being suboptimal in quality. Reason For Study: CHF and COCAINE ABUSE History: CHF and COCAINE ABUSE. Ordering Physician: MIKI MOJICA Performed By: Frida Crowder Interpretation Summary The left ventricle is normal in size. There is normal left ventricular wall thickness. Left ventricular systolic function is normal. LVEF is 70%. Doppler measurements suggest normal left ventricular diastolic function The left ventricular wall motion is normal. The left atrial size is normal. There is no evidence of mitral valve prolapse. There is no mitral valve stenosis. There is a trace to mild amount of mitral regurgitation There is no aortic valve stenosis There is no LVOT obstruction. No aortic regurgitation is present. There is a trace to mild amount of tricuspid regurgitation There is mild pulmonary hypertension by echo RVSP is 437 mm of Hg , with RA mead of 10. There is no pericardial effusion. MMode/2D Measurements \T\ Calculations RVDd: 2.6 cm LVIDd: 5.2 cm FS: 38.0 % Ao root diam: 3.3 cm IVSd: 0.86 cm LVIDs: 3.2 cm EDV(Teich): 131.6 ml LVPWd: 0.88 cmESV(Teich): 42.4 ml Ao root area: 8.8 cm2 EF(Teich): 67.8 % LA dimension: 3.5 cm LVOT diam: 2.4 cm LVOT area: 4.5 cm2 Doppler Measurements \T\ Calculations MV E max luis enrique: MV P1/2t max luis enrique: Ao V2 max: LV V1 max P.1 cm/sec 111.1 cm/sec 153.2 cm/sec 7.9 mmHg MV A max luis enrique: MV P1/2t: 72.4 msec Ao max PG: LV V1 max: 92.2 cm/sec MVA(P1/2t): 3.0 cm2 9.4 mmHg 140.2 cm/sec MV E/A: 1.2 MV dec slope: MAX(V,D): 4.1 cm2 449.0 cm/sec2 PA V2 max: TR max luis enrique: 124.9 cm/sec 301.5 cm/sec PA max PG: TR max P.4 mmHg 6.2 mmHg Left Ventricle The left ventricle is normal in size. There is normal left ventricular wall thickness. Left ventricular systolic function is normal. LVEF is 70%. Doppler measurements suggest normal left ventricular diastolic function. The left ventricular wall motion is normal. There is no thrombus. There is no ventricular septal defect visualized. Right Ventricle The right ventricle is normal in size and function. Atria The right atrium is normal. The left atrial size is normal. The interatrial septum is intact with no evidence for an atrial septal defect. Mitral Valve There is no evidence of mitral valve prolapse. There is no vegetation seen on the mitral valve. There is no mitral valve stenosis. There is a trace to mild amount of mitral regurgitation. Aortic Valve There is no aortic valve stenosis. There is no LVOT obstruction. No aortic regurgitation is present. Tricuspid Valve There is no tricuspid stenosis. There is a trace to mild amount of tricuspid regurgitation. There is mild pulmonary hypertension by echo. RVSP is 437 mm of Hg , with RA mead of 10. Pulmonic Valve There is no pulmonic valvular stenosis. There is no pulmonic valvular regurgitation. Great Vessels The aortic root is normal size. Effusions There is no pericardial effusion. : MIKI MOJICA > Gricelda Negro
[2017-01-10] MEDS: IPRATROPIUM/ALBUTEROL 0.5-2.5 MG/3 ML AMPUL NEB SCH ×4 (02:15→20:30)
[2017-01-10 04:14] LABS: HEMATOCRIT 26.5 % (37.9-51.0); HEMOGLOBIN 9.1 g/dL (13.5-17.0); HGB HCT DIFFERENCE 0.8; MEAN CORPUSCULAR HEMOGLOBIN 32.6 pg (27.0-33.4); MEAN CORPUSCULAR HGB CONC 34.2 g/dL (32.0-36.0); MEAN CORPUSCULAR VOLUME 95 fl (80-97); RED BLOOD COUNT 2.78 10^6/uL (4.35-5.55); RED CELL DISTRIBUTION WIDTH 13.5 % (11.5-14.0); WHITE BLOOD COUNT 17.5 10^3/uL (4.0-10.5)
[2017-01-10 04:25] LABS: ANION GAP 11 (5-19); BLOOD UREA NITROGEN 20 mg/dL (7-20); CALCIUM 9.3 mg/dL (8.4-10.2); CARBON DIOXIDE 24 mmol/L (22-30); CHLORIDE 102 mmol/L (98-107); CREATININE RESULT 0.94 mg/dL (0.52-1.25); GLUCOSE 118 mg/dL (75-110); POTASSIUM 4.3 mmol/L (3.6-5.0); SODIUM 137.4 mmol/L (137-145)
[2017-01-10 04:45] LABS: BAND NEUTROPHILS % (MANUAL) 1 % (3-5); BASOPHILS % (MANUAL) 0 % (0-2); EOSINOPHILS % (MANUAL) 0 % (0-6); LYMPHOCYTES % (MANUAL) 9 % (13-45); TOTAL CELLS COUNTED 100
[2017-01-10 04:47] LABS: ANISOCYTOSIS SLIGHT; PLATELET CLUMPS PRESENT; POLYCHROMASIA SLIGHT; ROULEAUX SLIGHT
[2017-01-10] MEDS: GUAIFENESIN 600 MG TABLET.SA PO SCH ×2 (05:46→18:20)
[2017-01-10] MEDS: HEPARIN SOD (PORCINE) 5,000 UNIT/ML 1 ML SYRINGE SUBCUT SCH ×3 (05:46→21:36)
[2017-01-10] MEDS: AMLODIPINE BESYLATE 10 MG TABLET PO SCH (11:32)
[2017-01-10] MEDS: THIAMINE HCL 100 MG TABLET PO SCH (11:32)
[2017-01-10] MEDS: LACTOBACILLUS ACIDOPHILUS 250 MG TAB PO SCH ×2 (11:32→18:21)
[2017-01-10] MEDS: PREDNISONE 20 MG TABLET PO SCH (11:33)
[2017-01-10] MEDS: FOLIC ACID 1 MG TABLET PO SCH (11:33)
[2017-01-10] MEDS: CEFEPIME 1 GM/D5W RTU 50 ML IV SCH ×2 (11:34→21:35)
[2017-01-10] MEDS: RISPERIDONE 1 MG TABLET PO SCH ×2 (11:34→21:36)
[2017-01-10] MEDS: FLUTICASONE/SALMETEROL DISKUS 250-50 MCG/DOSE IH SCH ×2 (11:36→21:36)
[2017-01-10] MEDS: FLUTICASONE NASAL SPRAY 50 MCG/SPRY 120 SPRAY/16 GM NASL SCH ×2 (11:37→21:35)
--- NOTE | 2017-01-10 12:35 | PDOC PROGRESS REPORT ---
Subjective Progress Note for:: 01/10/17 Subjective:: Reason for visit: Follow-up pneumonia Hospital course: Per H&P " YOUSIF SULLIVAN is a 61 year old male with a past medical history of COPD tobacco ongoing crack cocaine abuse and recent pneumonia. Who is in his usual state of health until approximately 24 hours prior to presentation smoking crack cocaine developing acute shortness of breath prompting to seek evaluation emergency room where his found to have scattered crackles on exam pulmonary edema on imaging and referred to the hospitalist for admission. Patient denies chest pain nausea vomiting diaphoresis. He was admitted to the hospital and started on broad-spectrum antibiotics, supplemental oxygen, nebulizer therapy and systemic steroids with slow improvement in his condition. Subjective: Patient continues to report dyspnea with minimal exertion, dry hacking cough, wheezing with exertion and generalized fatigue. He denies chest pain, palpitations, fever, chills, nausea, vomiting, diarrhea, swelling of his lower extremities, dizziness with change in position. ROS: per HPI plus a total of 10 systems reviewed, pertinent positives and negatives noted above, remaining systems negative. Physical Exam Vital Signs: Temp Pulse Resp BP Pulse Ox 98.0 F 77 16 139/63 H 98 01/10/17 08:22 01/10/17 08:22 01/10/17 08:22 01/10/17 08:22 01/10/17 08:22 Intake & Output 01/09/17 01/10/17 01/11/17 06:59 06:59 06:59 Intake Total 5764 2580 Output Total 1300 2400 Balance 4464 180 Weight 68.9 kg 71.5 kg EXAM GENERAL: NAD; well developed, well nourished; no obese; alert and oriented to person, place, time, situation HEENT: normocephalic, atraumatic; no conjunctival injection, no scleral icterus ; oral mucosa moist; very poor dentition RESPIRATORY: no accessory muscle use, no increased WOB, good air entry bilaterally; no wheezes, rales, rhonchi; bibasilar inspiratory crackles CARDIO: no JVD; RRR; no systolic murmur; no tachycardia GI: soft; nondistended; normal bowel sounds; no rebound, rigidity, guarding; nontender VASCULAR: no pallor; 2+ radial, DP pulse; normal capillary refill EXTREMITIES: no calf tender; no palpable cords in calf; no clubbing, cyanosis , pedal edema PSYCH: normal affect, normal mood SKIN: warm; moist; no petechiae; no telengectasias; no jaundice; Results Laboratory Results: 01/10/17 03:47 01/10/17 03:47 01/10/17 01/10/17 03:47 03:47 WBC 17.5 H RBC 2.78 L Hgb 9.1 L Hct 26.5 L MCV 95 MCH 32.6 MCHC 34.2 RDW 13.5 Plt Count 212 Seg Neutrophils % Not Reportable Lymphocytes % Not Reportable Monocytes % Not Reportable Eosinophils % Not Reportable Basophils % Not Reportable Absolute Neutrophils Not Reportable Absolute Lymphocytes Not Reportable Absolute Monocytes Not Reportable Absolute Eosinophils Not Reportable Absolute Basophils Not Reportable Sodium 137.4 Potassium 4.3 Chloride 102 Carbon Dioxide 24 Anion Gap 11 BUN 20 Creatinine 0.94 Est GFR ( Amer) > 60 Est GFR (Non-Af Amer) > 60 Glucose 118 H Calcium 9.3 Labs reviewed show a persistent leukocytosis and are otherwise reassuring Impressions: Chest X-Ray 01/07/17 19:13 IMPRESSION: Trace right pleural fluid in the major and minor fissures with minimal persistent right perihilar and right retrocardiac airspace disease. This is improved compared to 12/18/2016. Chest/Abdomen CTA 01/08/17 10:06 IMPRESSION: Trace right pleural effusion loculated in the major fissure Airspace disease in the right lower lobe atelectasis versus pneumonia. Status: Imported from PACS - Reports reviewed Assessment & Plan - Diagnosis (1) COPD exacerbation Is this a current diagnosis for this admission?: YesPlan: Continue systemic steroids, supplemental O2 but wean as tolerated, nebulizers as needed. (2) Pneumonia Qualifiers: Pneumonia type: due to unspecified organism Laterality: unspecified laterality Lung location: unspecified part of lung Qualified Code(s) : J18.9 - Pneumonia, unspecified organism Is this a current diagnosis for this admission?: YesPlan: Continue broad-spectrum antibiotics. (3) Acute respiratory failure with hypoxia Is this a current diagnosis for this admission?: YesPlan: Wean O2 as tolerated. Slow to improve. (4) Cocaine abuse Is this a current diagnosis for this admission?: YesPlan: Substance abuse discussed with patient, remains reticent and unlikely to quit. - Time Time Spent with patient: 15-24 minutes Within: within 24 hours
[2017-01-10] MEDS ORDERED: LEVOFLOXACIN 750 MG TABLET PO SCH (18:00)
[2017-01-11] MEDS: IPRATROPIUM/ALBUTEROL 0.5-2.5 MG/3 ML AMPUL NEB SCH ×2 (02:55→08:06)
[2017-01-11] MEDS: DIAZEPAM 2 MG TABLET PO PRN (03:33)
[2017-01-11] MEDS: GUAIFENESIN 600 MG TABLET.SA PO SCH (06:13)
[2017-01-11] MEDS: HEPARIN SOD (PORCINE) 5,000 UNIT/ML 1 ML SYRINGE SUBCUT SCH (06:13)
[2017-01-11] MEDS: PREDNISONE 20 MG TABLET PO SCH (08:03)
[2017-01-11] MEDS: RISPERIDONE 1 MG TABLET PO SCH (08:03)
[2017-01-11] MEDS: FLUTICASONE/SALMETEROL DISKUS 250-50 MCG/DOSE IH SCH (08:12)
[2017-01-11] MEDS: FLUTICASONE NASAL SPRAY 50 MCG/SPRY 120 SPRAY/16 GM NASL SCH (09:45)
[2017-01-11] MEDS: CEFEPIME 1 GM/D5W RTU 50 ML IV SCH (09:45)
[2017-01-11] MEDS: FOLIC ACID 1 MG TABLET PO SCH (09:45)
[2017-01-11] MEDS: THIAMINE HCL 100 MG TABLET PO SCH (09:45)
[2017-01-11] MEDS: LACTOBACILLUS ACIDOPHILUS 250 MG TAB PO SCH (09:45)
[2017-01-11] MEDS: AMLODIPINE BESYLATE 10 MG TABLET PO SCH (09:45)
[2017-01-11 10:41] VITALS: BP 127/61
--- NOTE | 2017-01-11 18:36 | PDOC DISCHARGE SUMMARY ---
General - Admit/Disc Date/PCP Admission Date/Primary Care Provider: 01/07/17 20:34 Discharge Date: 01/11/17 - Discharge Diagnosis (1) COPD exacerbation Is this a current diagnosis for this admission?: YesSummary: Markedly improved, continue long slow steroid taper as an outpatient. (2) Pneumonia Is this a current diagnosis for this admission?: YesSummary: Continue course of antibiotics at home, follow-up with the [place] [facility] in one week. (3) Acute respiratory failure with hypoxia Is this a current diagnosis for this admission?: YesSummary: Seemingly resolved, room air sat of 94% for this provider at the bedside. (4) Cocaine abuse Is this a current diagnosis for this admission?: Yes - Additional Information Resuscitation Status: Full Code Discharge Diet: As Tolerated Discharge Activity: Activity As Tolerated, Balance Activity w/Rest, Supervised Activity Home Medications: Albuterol Sulfate [Proair Respiclick] 1 puff IH Q4HP PRN 01/10/17 Amlodipine Besylate [Norvasc 10 mg Tablet] 10 mg PO DAILY 01/10/17 Budesonide/Formoterol Fumarate [Symbicort HFA 80-4.5 mcg Inhaler 6.9 gm] 2 puff IH BID 01/10/17 Fluticasone/Salmeterol [Advair 250-50 Diskus 28 dose] 1 inh IH Q12 01/10/17 Folic Acid [Folvite 1 mg Tablet] 1 mg PO DAILY 01/10/17 Ibuprofen [Motrin 600 mg Tablet] 600 mg PO TID 01/10/17 Multivitamin [Tab-A-Seth] 1 tab PO DAILY 01/10/17 Risperidone [Risperdal] 1 mg PO QHS 01/10/17 Risperidone [Risperdal] 2 mg PO QAM 01/10/17 Sertraline HCl [Zoloft 50 mg Tablet] 50 mg PO QAM 01/10/17 Thiamine HCl [Thiamine 100 mg Tablet] 100 mg PO DAILY 01/10/17 Acetaminophen [Tylenol 325 mg Tablet] 650 mg PO Q4HP PRN tablet 01/11/17 Levofloxacin [Levaquin 750 mg Tablet] 750 mg PO QPM #7 tablet 01/11/17 Prednisone [Deltasone 20 mg Tablet] 60 mg PO QAM 5 Days 01/11/17 History of Present Illness Patient complains of: Shortness of breath History of Present Illness: YOUSIF SULLIVAN is a 61 year old malewith a past medical history of COPD tobacco ongoing crack cocaine abuse and recent pneumonia. Who is in his usual state of health until approximately 24 hours prior to presentation smoking crack cocaine developing acute shortness of breath prompting to seek evaluation emergency room where his found to have scattered crackles on exam pulmonary edema on imaging and referred to the hospitalist for admission. Patient denies chest pain nausea vomiting diaphoresis. Hospital Course Hospital Course: He was admitted to the hospital and started on broad-spectrum antibiotics, supplemental oxygen, nebulizer therapy and systemic steroids with slow improvement in his condition. Ultimately by the day of discharge he is clinically stable, no longer requiring supplemental oxygen, up ambulating in the room without assistance, tolerating his diet without any difficulty and feels ready to discharge home. He is to follow-up with the [place] [facility] in one week, return to emergency department for any decline in his condition. He expresses no concerns me about discharge home at this time. Physical Exam Vital Signs: Temp Pulse Resp BP Pulse Ox 99.1 F 98 20 127/61 H 94 01/11/17 10:39 01/11/17 10:39 01/11/17 10:39 01/11/17 10:39 01/11/17 10:39 Intake & Output 01/10/17 01/11/17 01/12/17 06:59 06:59 06:59 Intake Total 2580 1050 Output Total 2400 1400 Balance 180 -350 Weight 71.5 kg 69.9 kg EXAM GENERAL: NAD; well developed, well nourished; no obese; alert and oriented to person, place, time, situation HEENT: normocephalic, atraumatic; no conjunctival injection, no scleral icterus ; oral mucosa moist; very poor dentition RESPIRATORY: no accessory muscle use, no increased WOB, good air entry bilaterally; no wheezes, rales, rhonchi; bibasilar inspiratory crackles CARDIO: no JVD; RRR; no systolic murmur; no tachycardia Results Laboratory Results: 01/10/17 03:47 01/10/17 03:47 Impressions: Chest X-Ray 01/07/17 19:13 IMPRESSION: Trace right pleural fluid in the major and minor fissures with minimal persistent right perihilar and right retrocardiac airspace disease. This is improved compared to 12/18/2016. Chest/Abdomen CTA 01/08/17 10:06 IMPRESSION: Trace right pleural effusion loculated in the major fissure Airspace disease in the right lower lobe atelectasis versus pneumonia. Qualifiers PATEINT BEING DISCHARGED WITH ANY OF THE FOLLOWING DIAGNOSIS?: No VTE patient discharged on overlapping Therapy?: No Reason(s) for not prescribing Overlap Therapy:: Not indicated Plan Discharge Plan: Complete a course of antibiotics at home, long slow steroid taper, follow up with his PCP in one week Time Spent: Greater than 30 Minutes
== END 2017-01-11 11:12 | disposition home or self-care (01) | DRG 190 ==
LOC: ER 19:03 → EH 20:34 → 5 22:30
PROVIDERS: ADMIT Internal Medicine; ATTEND Internal Medicine
PROC: 5A09357 Assistance with Respiratory Ventilation, Less than 24 Consecutive Hours, Continuous Positive Airway Pressure (ICD-10-PCS; principal; 2017-01-07)
PROC: 3E0F73Z Introduction of Anti-inflammatory into Respiratory Tract, Via Natural or Artificial Opening (ICD-10-PCS; 2017-01-08)
PROC: 3E0234Z Introduction of Serum, Toxoid and Vaccine into Muscle, Percutaneous Approach (ICD-10-PCS; 2017-01-11)
DX: J44.1 Chronic obstructive pulmonary disease with (acute) exacerbation (principal); J18.9 Pneumonia, unspecified organism; J96.01 Acute respiratory failure with hypoxia; J81.0 Acute pulmonary edema; J44.0 Chronic obstructive pulmonary disease with (acute) lower respiratory infection; F14.10 Cocaine abuse, uncomplicated; I10 Essential (primary) hypertension; M10.9 Gout, unspecified; F32.9 Major depressive disorder, single episode, unspecified; F43.10 Post-traumatic stress disorder, unspecified; F17.200 Nicotine dependence, unspecified, uncomplicated; F41.9 Anxiety disorder, unspecified; Z86.73 Personal history of transient ischemic attack (TIA), and cerebral infarction without residual deficits; Z23 Encounter for immunization; Z79.899 Other long term (current) drug therapy; Z82.5 Family history of asthma and other chronic lower respiratory diseases; Z82.49 Family history of ischemic heart disease and other diseases of the circulatory system
CPT/HCPCS: 36415; 71010; 71275; 80048; 80053; 80307; 82550; 82553; 82803; 82962; 83605; 83735; 83880; 84484; 85025; 87040; 87070; 87205; 87804; 90686; 93005; 93010; 93306; 94640; 94660; 96374; 99291; J0692; J1644; J1956; J2930; J3370; J3475; J3490; J7030; J7512; J7620

== ENCOUNTER 2017-06-11 22:02 | Emergency (ER) | payer OTHER ==
[2017-06-12] MEDS ORDERED: AMLODIPINE BESYLATE 5 MG TABLET PO ONE (00:05)
[2017-06-12] MEDS ORDERED: NAPROXEN 250 MG TABLET PO ONE (00:05)
[2017-06-12] MEDS ORDERED: GABAPENTIN 300 MG CAPSULE PO ONE (00:07)
--- NOTE | 2017-06-12 00:10 | ER Document Report ---
ED General - General Chief Complaint: L shoulder pain, HTN Stated Complaint: LEFT SHOULDER PAIN Time Seen by Provider: 06/11/17 23:59 Notes: Mr. Nunez is a very pleasant 61-year-old male who presents from half-way with complaint of left neck and shoulder pain. He says his chronic arthritis and nerve pain that shoots from his left side of his neck down into his left arm and shoulder. Patient says it has been there for a long time. He also has a history of gout. He says he typically takes naproxen as well as Neurontin for these pains. He says since being in half-way is not had the medication now for 10 days. Also says he is on amlodipine for hypertension. He denies any chest pain. No shortness of breath. No fevers. No other complaints at this time. No new injuries. TRAVEL OUTSIDE OF THE [place] IN LAST 30 DAYS: No - Related Data Allergies/Adverse Reactions: No Known Allergies Allergy (Verified 01/07/17 19:10) Past Medical History - Social History Smoking Status: Unknown if Ever Smoked Frequency of alcohol use: None Drug Abuse: None Family History: CAD, COPD - Past Medical History Cardiac Medical History: Reports: Hx Hypertension Pulmonary Medical History: Reports: Hx Bronchitis, Hx COPD, Hx Pneumonia Neurological Medical History: Reports: Hx Cerebrovascular Accident Renal/ Medical History: Denies: Hx Peritoneal Dialysis Musculoskeltal Medical History: Reports Hx Gout Psychiatric Medical History: Reports: Hx Depression, Hx Post Traumatic Stress Disorder Past Surgical History: Reports: Hx Orthopedic Surgery - shoulder, knee, ankle - Immunizations Immunizations up to date: Yes Hx Diphtheria, Pertussis, Tetanus Vaccination: Yes Review of Systems - Review of Systems Notes: My Normal Review Basic REVIEW OF SYSTEMS: CONSTITUTIONAL : Denies fever, chills, or sweats. Denies recent illness. EENT: Denies eye, ear, throat, or mouth pain or symptoms. Denies nasal or sinus congestion. CARDIOVASCULAR: Denies chest pain. RESPIRATORY: Denies cough, cold, or chest congestion. Denies shortness of breath, difficulty breathing, or wheezing. GASTROINTESTINAL: Denies abdominal pain. Denies nausea, vomiting, or diarrhea. Denies constipation. Last BM: MUSCULOSKELETAL: Left neck and shoulder pain. SKIN: Denies rash or skin lesions. NEUROLOGICAL: Denies altered mental status or loss of consciousness. Denies headache. Denies weakness or paralysis or loss of use of either side. Denies problems with gait or speech. Denies sensory or motor loss. ALL OTHER SYSTEMS REVIEWED AND NEGATIVE. Physical Exam - Vital signs Vitals: Temp Pulse Resp BP Pulse Ox 98.2 F 51 L 18 152/78 H 100 06/11/17 22:43 06/11/17 22:43 06/11/17 22:43 06/11/17 22:43 06/11/17 22:43 - Notes Notes: General Appearance: Well nourished, alert, cooperative, no acute distress, no obvious discomfort. Well appearing. Vitals: reviewed, See vital signs table. Head: no swelling or tenderness to the head Eyes: PERRL, EOMI, Conjuctiva clear Mouth: No decreasd moisture Neck: Supple, tenderness to palpation over the left cervical paraspinal musculature. He has pinpoint tenderness and a tender point just lateral to the fourth cervical vertebrae. Lungs: No wheezing, No rales, No rhonci, No accessory muscle use, good air exchange bilaterally. Heart: Normal rate, Regular rythm, No murmur, no rub Extremities: strength 5/5 in all extremities, good pulses in all extremities, pain to palpation over the left trapezius muscle and into the left shoulder. Patient has full function of strength of the left hand and arm. Good distal sensation. Skin: warm, dry, appropriate color, no rash Neuro: speech clear, oriented x 3, normal affect, responds appropriately to questions. Course - Re-evaluation Re-evalutation: 06/12/17 01:22 Was initially given discharge patient home however his vital signs show that he is bradycardic the upper 40s and low 50s. I therefore canceled amlodipine. He did not receive amlodipine. I still suspect that the patient's neck and shoulder pain is related to his chronic radiculopathy from his neck however, being that he is having bradycardia will continue cardiac enzymes to make sure that there is not something more going on in relation to his heart. His IN interval is normal on his EKG. I did review previous records. He has been here a lot for pneumonia at which point he had fevers and his heart rate was in the 80s and 90s. There has been times when he is been here and his heart rate was in the 50s during his entire hospital stay in the ER. I suspect that this will be asymptomatic bradycardia; however, we will check cardiac enzymes because of his pain that he has at this time. 06/12/17 05:36 Patient's cardiac enzymes are negative. His pain seems very musculoskeletal on exam. At this time I feel patient safe to be discharged home. I will discontinue him taking amlodipine and switch him to hydrochlorothiazide for her blood pressure. Patient also used to be on Naprosyn but he does have some renal insufficiency and therefore we will switch him over to Tylenol. Patient encouraged to return to ER if he has fevers, worsening pain, any chest pain, difficulty breathing, or feels unwell. Patient agrees with plan and will be discharged home. Dictation of this chart was performed using voice recognition software; therefore, there may be some unintended grammatical errors. - Vital Signs Vital signs: Temp Pulse Resp BP Pulse Ox 98.2 F 49 L 18 138/72 H 100 06/12/17 04:12 06/12/17 04:12 06/12/17 04:12 06/12/17 04:12 06/12/17 04:12 - Laboratory Result Diagrams: 06/12/17 01:32 06/12/17 01:32 Laboratory results interpreted by me: 06/12/17 06/12/17 01:32 01:32 RBC 4.14 L Seg Neutrophils % 40.5 L Eosinophils % 8.1 H Creatinine 1.31 H Est GFR (Non-Af Amer) 56 L - EKG Interpretation by Me Additional EKG results interpreted by me: 06/12/17 01:21 EKG is reviewed and interpreted by me. EKG shows sinus bradycardia with a rate of [address] bpm[address] Some concave up ST segment elevation lateral precordial leads consistent with probable early repolarization abnormality. IN interval, QRS duration, QTc intervals are within normal range. Old EKG for comparison is from January 07, 2017. Discharge - Discharge Clinical Impression: Cervical radiculopathy, Bradycardia Left shoulder pain Qualifiers: Chronicity: chronic Qualified Code(s): M25.512 - Pain in left shoulder Hypertension Qualifiers: Hypertension type: essential hypertension Qualified Code(s): I10 - Essential ( primary) hypertension Condition: Good Disposition: HOME, SELF-CARE Additional Instructions: Please take the medcations as prescribed. Please follow up with the [facility]way [facility] can [facility] the other medications you are supposed to be on. Please return to the ER if you have any chest pain, increasing arm pain, or feel uwnell. Do not take amlodipine any more as it can cause your heart rate to drop too low. Prescriptions: Acetaminophen [Tylenol] 650 mg PO Q4 #30 tablet Gabapentin [Neurontin 300 mg Capsule] 300 mg PO Q12 #20 capsule Hydrochlorothiazide 25 mg PO DAILY #10 tablet
[2017-06-12 01:42] LABS: ABSOLUTE EOSINOPHILS # (AUTO) 0.4 10^3/uL (0.0-0.6); ABSOLUTE LYMPHOCYTES (AUTO) 2.3 10^3/uL (0.5-4.7); ABSOLUTE MONOCYTES (AUTO) 0.5 10^3/uL (0.1-1.4); ABSOLUTE NEUT (AUTO) 2.2 10^3/uL (1.7-8.2); BASOPHILS % (AUTO) 0.9 % (0-2); EOSINOPHILS % (AUTO) 8.1 % (0-6); HEMATOCRIT 39.6 % (37.9-51.0); HEMOGLOBIN 13.7 g/dL (13.5-17.0); HGB HCT DIFFERENCE 1.5; LYMPHOCYTES % (AUTO) 41.3 % (13-45); MEAN CORPUSCULAR HGB CONC 34.4 g/dL (32.0-36.0); MEAN CORPUSCULAR VOLUME 96 fl (80-97); MONOCYTES % (AUTO) 9.2 % (3-13); RED BLOOD COUNT 4.14 10^6/uL (4.35-5.55); RED CELL DISTRIBUTION WIDTH 13.2 % (11.5-14.0); SEGMENTED NEUTROPHILS % (AUTO) 40.5 % (42-78); WHITE BLOOD COUNT 5.5 10^3/uL (4.0-10.5)
[2017-06-12 02:08] LABS: CREATINE KINASE MB 0.51 ng/mL (<4.55)
[2017-06-12 02:09] LABS: TROPONIN I < 0.012 ng/mL
[2017-06-12 02:25] LABS: ALANINE AMINOTRANSFERASE 34 U/L (21-72); ALBUMIN 4.2 g/dL (3.5-5.0); ALKALINE PHOSPHATASE 55 U/L (38-126); ANION GAP 9 (5-19); ASPARTATE AMINO TRANSFERASE 26 U/L (17-59); BILIRUBIN,DIRECT 0.3 mg/dL (0.0-0.4); BILIRUBIN,TOTAL 0.3 mg/dL (0.2-1.3); BLOOD UREA NITROGEN 18 mg/dL (7-20); CALCIUM 9.2 mg/dL (8.4-10.2); CARBON DIOXIDE 25 mmol/L (22-30); CHLORIDE 105 mmol/L (98-107); CREATINE KINASE 70 U/L (55-170); CREATININE RESULT 1.31 mg/dL (0.52-1.25); GLUCOSE 82 mg/dL (75-110); POTASSIUM 4.7 mmol/L (3.6-5.0); SODIUM 139.4 mmol/L (137-145)
--- NOTE | 2017-06-12 02:36 | RADIOLOGY REPORT (SQ) ---
EXAM DESCRIPTION: CHEST SINGLE VIEW COMPLETED DATE/TIME: 06/12/2017 2:06 am REASON FOR STUDY: chest pain COMPARISON: None. EXAM PARAMETERS: NUMBER OF VIEWS: One view. TECHNIQUE: Single frontal radiographic view of the chest acquired. RADIATION DOSE: NA LIMITATIONS: None. FINDINGS: LUNGS AND PLEURA: No opacities, masses or pneumothorax. No pleural effusion. MEDIASTINUM AND HILAR STRUCTURES: No masses. Contour normal. HEART AND VASCULAR STRUCTURES: Heart normal in size. Atherosclerosis. BONES: No acute findings. HARDWARE: None in the chest. OTHER: No other significant finding. IMPRESSION: NO ACUTE RADIOGRAPHIC FINDING IN THE CHEST. TECHNICAL DOCUMENTATION: JOB ID: [id number]
[2017-06-12 04:29] VITALS: BP 138/72
--- NOTE | 2017-06-12 04:45 | EKG REPORT ---
SEVERITY:- ABNORMAL ECG - SINUS BRADYCARDIA ST ELEVATION NONSPECIFIC. : Confirmed by: Cirilo Smith MD 12-Jun-2017 04:19:26
== END 2017-06-12 04:20 | disposition home or self-care (01) ==
LOC: ER 22:02
DX: M54.12 Radiculopathy, cervical region (principal); M19.90 Unspecified osteoarthritis, unspecified site; M54.2 Cervicalgia; M25.512 Pain in left shoulder; G89.29 Other chronic pain; R00.1 Bradycardia, unspecified; N28.9 Disorder of kidney and ureter, unspecified; I10 Essential (primary) hypertension; J44.9 Chronic obstructive pulmonary disease, unspecified; Z79.899 Other long term (current) drug therapy; Z87.01 Personal history of pneumonia (recurrent)
CPT/HCPCS: 36415; 71010; 80053; 82550; 82553; 84484; 85025; 93005; 93010; 99284

== ENCOUNTER 2018-02-12 07:27 | Observation (INO) | payer OTHER ==
[2018-02-12] MEDS ORDERED: IPRATROPIUM/ALBUTEROL 0.5-2.5 MG/3 ML AMPUL NEB ONE (08:02)
[2018-02-12] MEDS ORDERED: PREDNISONE 20 MG TABLET PO ONE (08:02)
[2018-02-12] MEDS ORDERED: ASPIRIN 81 MG TABLET, CHEWABLE PO ONE (08:04)
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
[2018-02-12] MEDS ORDERED: ACETAMINOPHEN 325 MG TABLET PO ONE (08:09)
[2018-02-12 08:36] LABS: ABSOLUTE EOSINOPHILS # (AUTO) 0.6 10^3/uL (0.0-0.6); ABSOLUTE MONOCYTES (AUTO) 0.6 10^3/uL (0.1-1.4); ABSOLUTE NEUT (AUTO) 2.8 10^3/uL (1.7-8.2); BASOPHILS % (AUTO) 0.7 % (0-2); EOSINOPHILS % (AUTO) 9.6 % (0-6); HEMATOCRIT 37.1 % (37.9-51.0); HEMOGLOBIN 12.6 g/dL (13.5-17.0); LYMPHOCYTES % (AUTO) 32.8 % (13-45); MEAN CORPUSCULAR HEMOGLOBIN 32.4 pg (27.0-33.4); MEAN CORPUSCULAR HGB CONC 33.9 g/dL (32.0-36.0); MEAN CORPUSCULAR VOLUME 96 fl (80-97); MONOCYTES % (AUTO) 10.2 % (3-13); PLATELET COUNT 181 10^3/uL (150-450); RED BLOOD COUNT 3.88 10^6/uL (4.35-5.55); RED CELL DISTRIBUTION WIDTH 13.4 % (11.5-14.0); SEGMENTED NEUTROPHILS % (AUTO) 46.7 % (42-78); TOTAL CELLS COUNTED % (AUTO) 100 %; WHITE BLOOD COUNT 6.1 10^3/uL (4.0-10.5)
[2018-02-12 08:59] LABS: ALANINE AMINOTRANSFERASE 18 U/L (21-72); ALBUMIN 3.8 g/dL (3.5-5.0); ALKALINE PHOSPHATASE 58 U/L (38-126); ANION GAP 8 (5-19); ASPARTATE AMINO TRANSFERASE 32 U/L (17-59); BILIRUBIN,DIRECT 0.3 mg/dL (0.0-0.4); BILIRUBIN,TOTAL 0.3 mg/dL (0.2-1.3); BLOOD UREA NITROGEN 18 mg/dL (7-20); C-REACTIVE PROTEIN < 5.0 mg/L (<10.0); CARBON DIOXIDE 27 mmol/L (22-30); CHLORIDE 108 mmol/L (98-107); CREATINE KINASE 105 U/L (55-170); GLUCOSE 87 mg/dL (75-110); POTASSIUM 4.8 mmol/L (3.6-5.0); SODIUM 143.1 mmol/L (137-145); TOTAL PROTEIN 7.4 g/dL (6.3-8.2)
[2018-02-12 09:07] LABS: CREATINE KINASE MB 1.19 ng/mL (<4.55)
[2018-02-12 09:08] LABS: TROPONIN I < 0.012 ng/mL
--- NOTE | 2018-02-12 09:14 | RADIOLOGY REPORT (SQ) ---
EXAM DESCRIPTION: CHEST 2 VIEWS COMPLETED DATE/TIME: 02/12/2018 8:36 am REASON FOR STUDY: cough, cp, sob COMPARISON: 12/18/2016, , 12/15/2016, 01/13/2016 chest films EXAM PARAMETERS: NUMBER OF VIEWS: two views TECHNIQUE: Digital Frontal and Lateral radiographic views of the chest acquired. RADIATION DOSE: NA LIMITATIONS: none FINDINGS: LUNGS AND PLEURA: No opacities, masses or pneumothorax. No pleural effusion. MEDIASTINUM AND HILAR STRUCTURES: No masses or contour abnormalities. HEART AND VASCULAR STRUCTURES: Heart normal size. No evidence for failure. BONES: No acute findings. HARDWARE: None in the chest. OTHER: No other significant finding. IMPRESSION: NO ACUTE RADIOGRAPHIC FINDING IN THE CHEST. TECHNICAL DOCUMENTATION: JOB ID: [id number] [employer]- All Rights Reserved Reading location - IP/workstation name: [email or web address]
[2018-02-12 09:18] LABS: ERYTHROCYTE SEDIMENTATION RATE 26 mm/hr (0-20)
[2018-02-12] MEDS ORDERED: HYDROCHLOROTHIAZIDE 25 MG TABLET PO ONE (09:53)
[2018-02-12 10:37] LABS: URINE AMPHETAMINES SCREEN NEGATIVE; URINE BARBITURATES SCREEN NEGATIVE; URINE BENZODIAZEPINES SCREEN NEGATIVE; URINE COCAINE SCREEN UNCONFIRMED POSITIVE; URINE MARIJUANA (THC) SCREEN UNCONFIRMED POSITIVE; URINE METHADONE SCREEN NEGATIVE; URINE PHENCYCLIDINE SCREEN NEGATIVE
[2018-02-12] MEDS ORDERED: LORAZEPAM INJ 2 MG/1 ML VIAL IV ONE (12:57)
--- NOTE | 2018-02-12 13:32 | EKG REPORT ---
SEVERITY:- OTHERWISE NORMAL ECG - SINUS RHYTHM ST ELEVATION SUGGESTS NORMAL VARIANT : Confirmed by: Cirilo Smith MD 12-Feb-2018 13:31:58
[2018-02-12] MEDS ORDERED: ONDANSETRON HCL INJ/PF 4 MG/2 ML SDV IV PRN (14:34)
[2018-02-12] MEDS ORDERED: IBUPROFEN 600 MG TABLET PO SCH (14:45)
--- NOTE | 2018-02-12 14:51 | PDOC H&P ---
History of Present Illness Admission Date/PCP: 02/12/18 13:29 Patient complains of: Chest pain History of Present Illness: YOUSIF SULLIVAN is a 62 year old male with a known history of cocaine use, alcohol use, chronic tobacco use Who presented to the ED with a history of chest pain several days duration The pain was described as left-sided quite severe constant nonpleuritic in nature. The pain did not radiate to the back On EKG patient had [address] elevation on inferior and anterolateral leads suggestive of acute pericarditis. Review of her previous EKG shows as well slight ST elevation in precordial leads suggestive of J-point elevation Patient was admitted to telemetry for observation for further testing and evaluation Past Medical History Cardiac Medical History: Reports: Hypertension Pulmonary Medical History: Reports: Bronchitis, Chronic Obstructive Pulmonary Disease (COPD), Pneumonia Musculoskeltal Medical History: Reports: Arthritis, Gout Psychiatric Medical History: Reports: Depression, Post Traumatic Stress Disorder Past Surgical History Past Surgical History: Reports: Orthopedic Surgery - bilat shoulder, knee, ankle Social History Information Source: Patient Lives with: Alone Smoking Status: Current Every Day Smoker Frequency of Alcohol Use: Heavy Hx Recreational Drug Use: No Drugs: Cocaine, Marijuana Hx Prescription Drug Abuse: No - Advance Directive Resuscitation Status: Full Code Surrogate healthcare decision maker:: He does not have any surrogate healthcare decision maker Family History Family History: CAD, COPD Parental Family History Reviewed: Yes - Father of heart disease Children Family History Reviewed: Yes Sibling(s) Family History Reviewed.: Yes - Brother had liver and kidney disease Medication/Allergy Allergies/Adverse Reactions: No Known Allergies Allergy (Verified 01/07/17 19:10) Review of Systems Constitutional: ABSENT: chills, fever(s), headache(s), weight gain, weight loss Cardiovascular: PRESENT: as per HPI, chest pain Respiratory: ABSENT: cough, hemoptysis Gastrointestinal: ABSENT: abdominal pain, constipation, diarrhea, hematemesis, hematochezia, nausea, vomiting Genitourinary: ABSENT: dysuria, hematuria Integumentary: ABSENT: rash, wounds Neurological: ABSENT: abnormal gait, abnormal speech, confusion, dizziness, focal weakness, syncope Psychiatric: ABSENT: anxiety, depression, homidical ideation, suicidal ideation Hematologic/Lymphatic: ABSENT: easy bleeding, easy bruising Physical Exam Vital Signs: Temp Pulse Resp BP Pulse Ox 97.6 F 70 20 141/116 H 97 02/12/18 07:31 02/12/18 07:31 02/12/18 14:01 02/12/18 14:01 02/12/18 14:01 General appearance: PRESENT: no acute distress, well-developed, well-nourished Head exam: PRESENT: atraumatic, normocephalic Eye exam: PRESENT: conjunctiva pink, EOMI, PERRLA. ABSENT: scleral icterus Neck exam: ABSENT: carotid bruit, JVD, lymphadenopathy, thyromegaly Respiratory exam: PRESENT: clear to auscultation luis. ABSENT: rales, rhonchi, wheezes Cardiovascular exam: PRESENT: RRR. ABSENT: diastolic murmur, rubs, systolic murmur Pulses: PRESENT: normal dorsalis pedis pul Vascular exam: PRESENT: normal capillary refill GI/Abdominal exam: PRESENT: normal bowel sounds, soft. ABSENT: distended, guarding, mass, organolmegaly, rebound, tenderness Extremities exam: PRESENT: full ROM. ABSENT: calf tenderness, clubbing, pedal edema Musculoskeletal exam: PRESENT: deformity, full ROM Neurological exam: PRESENT: alert, CN II-XII grossly intact. ABSENT: motor sensory deficit Psychiatric exam: PRESENT: agitated, anxious Skin exam: PRESENT: dry, intact, warm. ABSENT: cyanosis, rash Results Laboratory Results: 02/12/18 02/12/18 02/12/18 08:22 08:22 08:22 WBC 6.1 Hgb 12.6 L Hct 37.1 L Sodium 143.1 Potassium 4.8 Chloride 108 H Carbon Dioxide 27 BUN 18 Creatinine 1.27 H Troponin I < 0.012 02/12/18 11:20 WBC Hgb Hct Sodium Potassium Chloride Carbon Dioxide BUN Creatinine Troponin I < 0.012 Impressions: Chest X-Ray 02/12/18 08:03 IMPRESSION: NO ACUTE RADIOGRAPHIC FINDING IN THE CHEST. Assessment & Plan - Diagnosis (1) Abnormal EKG Is this a current diagnosis for this admission?: Yes Plan: EKG may be suggestive of acute pericarditis We will treat empirically for pericarditis and give the patient NSAIDs ibuprofen 600 mg p.o. every 6 hours An echocardiogram will be scheduled Patient to be reevaluated Repeat EKG in a.m. So far there is no evidence of an acute coronary syndrome 2 troponins are negative Continue to cycle troponins Monitor Repeat EKG in a.m. Patient was given aspirin and also will be given Lipitor 80 mg p.o. ; lipid profile in a.m. (2) Chest pain Qualifiers: Chest pain type: unspecified Qualified Code(s): R07.9 - Chest pain, unspecified Is this a current diagnosis for this admission?: Yes Plan: Patient would be ruled out for acute coronary syndrome We will also schedule him for CTA of the chest to rule out PE (3) Cocaine abuse Is this a current diagnosis for this admission?: Yes - Time Time Spent: 50 to 70 Minutes - Inpatient Certification Based on my medical assessment, after consideration of the patient's comorbidities, presenting symptoms, or acuity I expect that the services needed warrant INPATIENT care.: No I certify that my determination is in accordance with my understanding of Medicare's requirements for reasonable and necessary INPATIENT services [42 CFR 412.3e].: No Post Hospital Care: D/C Scientific Specialist Documentation - Patient was admitted for observation to telemetry unit
--- NOTE | 2018-02-12 15:57 | RADIOLOGY REPORT (SQ) ---
EXAM DESCRIPTION: CTA CHEST COMPLETED DATE/TIME: 02/12/2018 3:34 pm REASON FOR STUDY: CP COMPARISON: 2017 TECHNIQUE: CT scan of the chest performed using helical scanning technique with dynamic intravenous contrast injection. Images reviewed with lung, soft tissue and bone windows. Reconstructed coronal and sagittal MPR images reviewed. Additional 3 dimensional post-processing performed to develop Maximal Intensity Projection images (AR P). All images stored on PACS. All CT scanners at this facility use dose modulation, iterative reconstruction, and/or weight based d osing when appropriate to reduce radiation dose to as low as reasonably achievable (ALARA). [facility]: Dose Right [facility]: CareDose [facility]: Dose Right [facility]: Teradose 4D [facility]: InSeT Systems CONTRAST TYPE AND DOSE: contrast/concentration: Isovue 370.00 mg/ml; Total Contrast Delivered: 69.0 ml; Total Saline Delivered: 102.0 ml Contrast bolus optimized for the pulmonary arteries. Not diagnostic for the aorta. RENAL FUNCTION: Creatinine 1.27 RADIATION DOSE: CT Rad equipment meets quality standard of care and radiation dose reduction techniq ues were employed. CTDIvol: 14.3 - 16.5 mGy. DLP: 540 mGy-cm. . LIMITATIONS: Mild-moderate motion artifact on some images. FINDINGS: LUNGS AND PLEURA: Mild patchy dependent changes in the left lower lobe, suspect mild atele ctasis here. Doubt pneumonia. Lungs otherwise relatively clear. No pleural fluid. AORTA AND GREAT VESSELS: Limited evaluation of the aorta, poorly opacified. No gross aneurysm. Athe rosclerotic calcification is present. HEART: No pericardial effusion. No significant coronary artery calcifications. PULMONARY ARTERIES: As assessed, no pulmonary arterial clot detected. HILAR AND MEDIASTINAL STRUCTURES: No identified masses or abnormal nodes. HARDWARE: None in the chest. UPPER ABDOMEN: No significant findings. Limited exam. THYROID AND OTHER SOFT TISSUES: No masses. No adenopathy. BONES: No acute or significant finding. 3D MIPS: Confirm above findings. OTHER: No other significant finding. IMPRESSION: 1. Mildly limited study. 2. Mild dependent subsegmental atelectasis left lower lobe. 3 . No pulmonary embolus. COMMENT: Quality ID # [id number]: Final reports with documentation of one or more dose reduction techniques (e.g., Automated exposure control, adjustment of the mA and/or kV according to patient size, use of iterative reconstruction technique) TECHNICAL DOCUMENTATION: JOB ID: [id number] [employer]- All Rights Reserved Reading location - IP/workstation name: [email or web address]
[2018-02-12] MEDS: LANSOPRAZOLE 30 MG TAB.RAP.DR PO SCH (16:23)
[2018-02-12] MEDS ORDERED: ATORVASTATIN CALCIUM 80 MG TABLET PO ONE (17:00)
[2018-02-12] MEDS ORDERED: AMLODIPINE BESYLATE 10 MG TABLET PO ONE (17:00)
[2018-02-12] MEDS ORDERED: ENOXAPARIN SODIUM INJ 40 MG/0.4 ML DISP.SYRIN SUBCUT ONE (17:00)
[2018-02-12] MEDS ORDERED: LORAZEPAM INJ 2 MG/1 ML VIAL IV PRN (18:42)
[2018-02-12] MEDS: IBUPROFEN 600 MG TABLET PO SCH (19:49)
[2018-02-13] MEDS: IBUPROFEN 600 MG TABLET PO SCH ×5 (00:05→23:19)
[2018-02-13] MEDS: LANSOPRAZOLE 30 MG TAB.RAP.DR PO SCH ×2 (06:44→16:44)
[2018-02-13 07:00] LABS: ABSOLUTE EOSINOPHILS # (AUTO) 0.1 10^3/uL (0.0-0.6); ABSOLUTE LYMPHOCYTES (AUTO) 1.8 10^3/uL (0.5-4.7); ABSOLUTE MONOCYTES (AUTO) 0.8 10^3/uL (0.1-1.4); ABSOLUTE NEUT (AUTO) 5.6 10^3/uL (1.7-8.2); BASOPHILS % (AUTO) 0.6 % (0-2); EOSINOPHILS % (AUTO) 1.5 % (0-6); HEMOGLOBIN 12.3 g/dL (13.5-17.0); MEAN CORPUSCULAR HEMOGLOBIN 32.3 pg (27.0-33.4); MEAN CORPUSCULAR HGB CONC 34.1 g/dL (32.0-36.0); MEAN CORPUSCULAR VOLUME 95 fl (80-97); MONOCYTES % (AUTO) 9.7 % (3-13); PLATELET COUNT 171 10^3/uL (150-450); RED BLOOD COUNT 3.81 10^6/uL (4.35-5.55); RED CELL DISTRIBUTION WIDTH 13.6 % (11.5-14.0); SEGMENTED NEUTROPHILS % (AUTO) 66.2 % (42-78); TOTAL CELLS COUNTED % (AUTO) 100 %; WHITE BLOOD COUNT 8.4 10^3/uL (4.0-10.5)
[2018-02-13 07:23] LABS: ALANINE AMINOTRANSFERASE 22 U/L (21-72); ALBUMIN 3.5 g/dL (3.5-5.0); ALKALINE PHOSPHATASE 57 U/L (38-126); ANION GAP 10 (5-19); ASPARTATE AMINO TRANSFERASE 20 U/L (17-59); BILIRUBIN,DIRECT 0.3 mg/dL (0.0-0.4); BILIRUBIN,TOTAL 0.5 mg/dL (0.2-1.3); BLOOD UREA NITROGEN 18 mg/dL (7-20); CALCIUM 9.4 mg/dL (8.4-10.2); CARBON DIOXIDE 24 mmol/L (22-30); CHLORIDE 103 mmol/L (98-107); CHOLESTEROL 142.84 mg/dL (0-200); GLUCOSE 110 mg/dL (75-110); POTASSIUM 3.9 mmol/L (3.6-5.0); SODIUM 136.7 mmol/L (137-145); TOTAL PROTEIN 6.8 g/dL (6.3-8.2); TRIGLYCERIDES 53 mg/dL (<150)
--- NOTE | 2018-02-13 07:28 | EKG REPORT ---
SEVERITY:- OTHERWISE NORMAL ECG - SINUS RHYTHM ST ELEVATION NORMAL VARIANT. : Confirmed by: Cirilo Smith MD 13-Feb-2018 07:28:14
[2018-02-13 07:34] LABS: DIRECT LDL 33 mg/dL (<100)
[2018-02-13 07:39] LABS: FREE T3 4.01 pg/mL (2.77-5.27)
[2018-02-13 07:53] LABS: THYROID STIMULATING HORMONE 0.63 uIU/mL (0.47-4.68)
[2018-02-13] MEDS: ENOXAPARIN SODIUM INJ 40 MG/0.4 ML DISP.SYRIN SUBCUT SCH (11:37)
[2018-02-13] MEDS: AMLODIPINE BESYLATE 10 MG TABLET PO SCH (11:37)
[2018-02-13] MEDS ORDERED: GABAPENTIN 300 MG CAPSULE PO ONE (14:15)
--- NOTE | 2018-02-13 18:19 | PDOC PROGRESS REPORT ---
Subjective Progress Note for:: 02/13/18 Subjective:: Continues to endorse left sided arm pain. Upon further prompting, sounds more like nerve related pain and not acute/sharp pain. Denies chest pain, palpitations, SOB, fevers, chills. Reason For Visit: CHEST PAIN-COCAINE ABUSE Physical Exam Vital Signs: Temp Pulse Resp BP Pulse Ox 98.1 F 64 12 144/70 H 96 02/13/18 14:00 02/13/18 15:00 02/13/18 14:30 02/13/18 14:00 02/13/18 14:30 Intake & Output 02/12/18 02/13/18 02/14/18 06:59 06:59 06:59 Intake Total 810 Output Total 350 Balance 460 Weight 75.3 kg General appearance: PRESENT: no acute distress, well-developed, well-nourished Head exam: PRESENT: normocephalic Mouth exam: PRESENT: moist Teeth exam: PRESENT: poor dentation Respiratory exam: PRESENT: unlabored. ABSENT: tachypnea Cardiovascular exam: PRESENT: +S1, +S2. ABSENT: tachycardia GI/Abdominal exam: PRESENT: soft. ABSENT: tenderness Extremities exam: PRESENT: full ROM. ABSENT: pedal edema Musculoskeletal exam: PRESENT: full ROM Neurological exam: PRESENT: alert, awake, CN II-XII grossly intact Psychiatric exam: PRESENT: appropriate affect Skin exam: PRESENT: dry, warm Results Laboratory Results: 02/13/18 06:32 02/13/18 06:32 02/13/18 02/13/18 02/13/18 06:32 06:32 06:32 WBC 8.4 RBC 3.81 L Hgb 12.3 L Hct 36.0 L MCV 95 MCH 32.3 MCHC 34.1 RDW 13.6 Plt Count 171 Seg Neutrophils % 66.2 Lymphocytes % 22.0 Monocytes % 9.7 Eosinophils % 1.5 Basophils % 0.6 Absolute Neutrophils 5.6 Absolute Lymphocytes 1.8 Absolute Monocytes 0.8 Absolute Eosinophils 0.1 Absolute Basophils 0.0 Sodium 136.7 L Potassium 3.9 Chloride 103 Carbon Dioxide 24 Anion Gap 10 BUN 18 Creatinine 1.27 H Est GFR ( Amer) > 60 Est GFR (Non-Af Amer) 58 L Glucose 110 Calcium 9.4 Magnesium 1.8 Total Bilirubin 0.5 AST 20 ALT 22 Alkaline Phosphatase 57 Total Protein 6.8 Albumin 3.5 Triglycerides 53 Cholesterol 142.84 LDL Cholesterol Direct 33 VLDL Cholesterol 11.0 HDL Cholesterol 101 TSH 0.63 Free T3 pg/mL 4.01 02/12/18 02/12/18 02/13/18 14:54 20:22 02:32 Troponin I < 0.012 < 0.012 < 0.012 Impressions: Chest X-Ray 02/12/18 08:03 IMPRESSION: NO ACUTE RADIOGRAPHIC FINDING IN THE CHEST. Chest/Abdomen CTA 02/12/18 14:51 IMPRESSION: 1. Mildly limited study. 2. Mild dependent subsegmental atelectasis left lower lobe. 3. No pulmonary embolus. Assessment & Plan - Diagnosis (1) Arm pain, left Is this a current diagnosis for this admission?: Yes Plan: On 02/14, complaining less chest pain and more left arm pain. - Per description appears to be neuropathic in nature - Will trial Gabapentin 300mg BID (2) Chest pain Qualifiers: Chest pain type: unspecified Qualified Code(s): R07.9 - Chest pain, unspecified Is this a current diagnosis for this admission?: Yes Plan: Pt's hx is significant for cocaine use, alcohol use, chronic tobacco use. Presented with chest pain for severe days. Noted to have EKG with [address] elevation on inferior and anterolateral leads suggestive of acute pericarditis. Has been treated with NSAIDs. - Work up included troponin * 3 negative - CTA chest was negative for PE and dissection - Continue district agent for now - Most likely this is not cardiac based on workup (3) Cocaine abuse Is this a current diagnosis for this admission?: Yes Plan: Drug Tox positive for cocaine. Discussed with patient who admitted to recent use. However states he is committed to not using (4) LISETH (acute kidney injury) Is this a current diagnosis for this admission?: Yes Plan: Unclear baseline, Cr remains stable at 1.27. Can monitor, NTD - Time Time Spent with patient: Less than 15 minutes Anticipated discharge: Home Within: within 24 hours
--- NOTE | 2018-02-13 19:35 | XCELERA REPORT ---
[address] [address] Transthoracic Echocardiogram Report Name: YOUSIF SULLIVAN Age: 62 yrs Gender: Male : 1955 Patient Status: Inpatient Patient Location: [address] [place] [address] Study Date: 02/13/2018 02:00 PM Height: 70 in Weight: 166 lb BSA: 1.9 m2 Procedure: A complete two-dimensional transthoracic echocardiogram was performed (2D, M-mode, spectral and color flow Doppler). The study was technically adequate with some images being suboptimal in quality. Reason For Study: CP ? pericarditis Ordering Physician: MIKI MOJICA Performed By: Carlita Hodgson Interpretation Summary The left ventricular ejection fraction is normal. There is normal left ventricular wall thickness. The left ventricle is grossly normal size. Doppler measurements suggest impaired left ventricular relaxation, which is associated with grade I/IV or mild diastolic dysfunction Wall motion cannot be accurately commented on, but no definite regional wall motion abnormalities noted. The right ventricle is borderline dilated. The left atrial size is normal. The right atrium is normal in size There is a trace to mild amount of mitral regurgitation There is no mitral valve stenosis. No aortic regurgitation is present. There is no aortic valve stenosis There is a mild amount of tricuspid regurgitation There is mild pulmonary hypertension by echo Right ventricular systolic pressure is estimated to be elevated at 30- 40mmHg. The aortic root is not well visualized but is probably normal size. The inferior vena cava appeared normal and decreased > 50% with respiration (RAP 5-10 mmHg) There is no pericardial effusion. MMode/2D Measurements & Calculations RVDd: 2.9 cm LVIDd: 5.0 cm FS: 38.1 % Ao root diam: 2.8 cm IVSd: 0.81 cm LVIDs: 3.1 cm EDV(Teich): 117.6 ml LVPWd: 0.76 cm ESV(Teich): 37.6 ml Ao root area: 5.9 cm2 EF(Teich): 68.0 % Doppler Measurements & Calculations MV E max luis enrique: MV dec slope: Ao V2 max: LV V1 max P.6 cm/sec 117.4 cm/sec 3.5 mmHg MV A max luis enrique: 328.5 cm/sec2 Ao max PG: LV V1 max: 70.5 cm/sec MV dec time: 5.5 mmHg 93.4 cm/sec MV E/A: 1.1 0.24 sec PA V2 max: TR max luis enrique: 114.8 cm/sec 283.6 cm/sec PA max P.3 mmHgTR max P.2 mmHg Left Ventricle The left ventricle is grossly normal size. There is normal left ventricular wall thickness. The left ventricular ejection fraction is normal. Doppler measurements suggest impaired left ventricular relaxation, which is associated with grade I/IV or mild diastolic dysfunction. Wall motion cannot be accurately commented on, but no definite regional wall motion abnormalities noted. Right Ventricle The right ventricle is borderline dilated. There is normal right ventricular wall thickness. The right ventricular systolic function is normal. Atria The right atrium is normal in size. The left atrial size is normal. Interarterial septum not well visualized and not well dopplered. Cannot comment on ASD/PFO presence. Mitral Valve The mitral valve is grossly normal. There is no mitral valve stenosis. There is a trace to mild amount of mitral regurgitation. Aortic Valve The aortic valve is grossly normal. There is no aortic valve stenosis. No aortic regurgitation is present. Tricuspid Valve The tricuspid valve is not well visualized, but is grossly normal. There is no tricuspid stenosis. There is a mild amount of tricuspid regurgitation. There is mild pulmonary hypertension by echo. Right ventricular systolic pressure is estimated to be elevated at 30-40mmHg. Pulmonic Valve The pulmonic valve is not well visualized. Great Vessels The aortic root is not well visualized but is probably normal size. The inferior vena cava appeared normal and decreased > 50% with respiration (RAP 5-10 mmHg). Effusions There is no pericardial effusion. : MIKI MOJICA > Teri Lagunas
[2018-02-13] MEDS: GABAPENTIN 300 MG CAPSULE PO SCH (21:41)
[2018-02-13] MEDS: ATORVASTATIN CALCIUM 80 MG TABLET PO SCH (21:41)
[2018-02-14] MEDS: IBUPROFEN 600 MG TABLET PO SCH ×4 (05:34→23:51)
[2018-02-14] MEDS: LANSOPRAZOLE 30 MG TAB.RAP.DR PO SCH ×2 (05:34→17:47)
[2018-02-14] MEDS: IPRATROPIUM/ALBUTEROL 0.5-2.5 MG/3 ML AMPUL NEB PRN ×3 (06:16→19:55)
[2018-02-14 09:49] LABS: ANION GAP 12 (5-19); BLOOD UREA NITROGEN 19 mg/dL (7-20); CALCIUM 9.1 mg/dL (8.4-10.2); CARBON DIOXIDE 23 mmol/L (22-30); CHLORIDE 104 mmol/L (98-107); GLUCOSE 146 mg/dL (75-110); POTASSIUM 3.9 mmol/L (3.6-5.0); SODIUM 138.8 mmol/L (137-145)
[2018-02-14] MEDS: ENOXAPARIN SODIUM INJ 40 MG/0.4 ML DISP.SYRIN SUBCUT SCH (11:12)
[2018-02-14] MEDS: AMLODIPINE BESYLATE 10 MG TABLET PO SCH (11:13)
[2018-02-14] MEDS: GABAPENTIN 300 MG CAPSULE PO SCH ×2 (11:14→21:35)
--- NOTE | 2018-02-14 17:18 | RADIOLOGY REPORT (SQ) ---
EXAM DESCRIPTION: MRI CERVICAL SPINE WITHOUT COMPLETED DATE/TIME: 02/14/2018 5:05 pm REASON FOR STUDY: Neck pain, Left arm parasthesia COMPARISON: None. TECHNIQUE: Sagittal and Axial imaging includes T1, T2, STIR and gradient echo sequences. LIMITATIONS: None. FINDINGS: ALIGNMENT: Straightening of cervical curvature likely due to muscle spasm VERTEBRAE: Intact. BONE MARROW: Normal. No marrow replacement or reactive changes. DISCS: Diffuse decreased T2 weighted intervertebral disc signal. HARDWARE: None in the spine. CORD AND BASE OF BRAIN: Normal in size and signal intensity. SOFT TISSUES: No soft tissue masses. C1-C2: No significant spinal stenosis. C2-C3: No significant spinal stenosis or exit foraminal stenosis. C3-C4: Mild diffuse posterior disc bulging is present with partial effacement of the ventral thecal s ac. Disc bulge and bony spur abuts the ventral cord with minimal cord flattening. No abnormal intri nsic cord signal to suggest edema or myelomalacia. Borderline central canal narrowing. Mild bilater al foraminal narrowing from facet and uncovertebral hypertrophy. C4-C5: Mild diffuse posterior disc bulge and bony spurring abuts the ventral cord without cord flatte florence or abnormal intrinsic cord signal. No central stenosis. Mild bilateral foraminal narrowing fro m facet and uncovertebral hypertrophy C5-C6: Broad diffuse posterior disc bulge is present left greater than right. This partially effaces the ventral thecal sac and abuts the ventral cord without cord flattening or abnormal intrinsic cord signal. Moderate right, mild left foraminal narrowing is present. C6-C7: No central or foraminal stenosis. C7-T1: No central or foraminal stenosis OTHER: No other significant finding. IMPRESSION: Reversal of cervical curvature related to muscle spasm or patient positioning. Multilevel degenerative disc changes with multilevel foraminal narrowing as above TECHNICAL DOCUMENTATION: JOB ID: [id number] [employer]- All Rights Reserved Reading location - IP/workstation name: [email or web address]
--- NOTE | 2018-02-14 20:04 | PDOC PROGRESS REPORT ---
Subjective Progress Note for:: 02/14/18 Subjective:: Has neck with parasthesia left arm. Denies fever or chill, no headaches, no nausea or vomiting. Reason For Visit: CHEST PAIN-COCAINE ABUSE Physical Exam Vital Signs: Temp Pulse Resp BP Pulse Ox 97.6 F 63 18 125/72 99 02/14/18 16:00 02/14/18 16:00 02/14/18 16:00 02/14/18 16:00 02/14/18 16:00 Intake & Output 02/13/18 02/14/18 02/15/18 06:59 06:59 06:59 Intake Total 362 974 1973 Output Total 350 Balance 942 954 2828 Weight 75.3 kg 75.3 kg GEN: NAD, well-developed, well-nourished CV: RRR, NL S1S2 LUNGS: CTA bilaterally ABDOMEN Soft, NT, +BS EXTERMITIES: No e/c/c NEURO: Alert, oriented x 3, no focal weakness Results Laboratory Results: 02/13/18 06:32 02/14/18 09:28 02/14/18 09:28 Sodium 138.8 Potassium 3.9 Chloride 104 Carbon Dioxide 23 Anion Gap 12 BUN 19 Creatinine 1.32 H Est GFR ( Amer) > 60 Est GFR (Non-Af Amer) 55 L Glucose 146 H Calcium 9.1 02/12/18 02/12/18 02/13/18 14:54 20:22 02:32 Troponin I < 0.012 < 0.012 < 0.012 Impressions: Chest X-Ray 02/12/18 08:03 IMPRESSION: NO ACUTE RADIOGRAPHIC FINDING IN THE CHEST. Chest/Abdomen CTA 02/12/18 14:51 IMPRESSION: 1. Mildly limited study. 2. Mild dependent subsegmental atelectasis left lower lobe. 3. No pulmonary embolus. Cervical Spine MRI 02/14/18 00:00 IMPRESSION: Reversal of cervical curvature related to muscle spasm or patient positioning. Multilevel degenerative disc changes with multilevel foraminal narrowing as above Assessment & Plan - Plan Summary Plan Summary: (1) Arm pain, left Is this a current diagnosis for this admission?: Yes Plan: -Suspect paresthesia from cervical DJD at multiple levels foraminal narrowing as an MRI -Continue gabapentin 300mg BID, ibuprofen -We will recommend neurosurgical follow-up as outpatient. (2) Chest pain Qualifiers: Chest pain type: unspecified Qualified Code(s): R07.9 - Chest pain, unspecified Is this a current diagnosis for this admission?: Yes Plan: Pt's hx is significant for cocaine use, alcohol use, chronic tobacco use. Presented with chest pain for severe days. Noted to have EKG with [address] elevation on inferior and anterolateral leads suggestive of acute pericarditis. Has been treated with NSAIDs. - Work up included troponin * 3 negative - CTA chest was negative for PE and dissection - Continue child monitor for now - Most likely this is not cardiac based on workup (3) Cocaine abuse Is this a current diagnosis for this admission?: Yes Plan: Drug Tox positive for cocaine. Discussed with patient who admitted to recent use. However states he is committed to not using (4) LISETH (acute kidney injury) Is this a current diagnosis for this admission?: Yes Plan: Unclear baseline, Cr remains relatively stable. Continue to monitor.
[2018-02-14] MEDS: ATORVASTATIN CALCIUM 80 MG TABLET PO SCH (21:35)
[2018-02-15] MEDS: IBUPROFEN 600 MG TABLET PO SCH ×2 (05:14→13:23)
[2018-02-15] MEDS: LANSOPRAZOLE 30 MG TAB.RAP.DR PO SCH (05:14)
[2018-02-15 06:43] LABS: ABSOLUTE EOSINOPHILS # (AUTO) 0.4 10^3/uL (0.0-0.6); ABSOLUTE LYMPHOCYTES (AUTO) 2.2 10^3/uL (0.5-4.7); ABSOLUTE MONOCYTES (AUTO) 0.6 10^3/uL (0.1-1.4); ABSOLUTE NEUT (AUTO) 3.3 10^3/uL (1.7-8.2); BASOPHILS % (AUTO) 0.6 % (0-2); EOSINOPHILS % (AUTO) 6.6 % (0-6); HEMATOCRIT 36.9 % (37.9-51.0); HEMOGLOBIN 12.4 g/dL (13.5-17.0); MEAN CORPUSCULAR HEMOGLOBIN 32.1 pg (27.0-33.4); MEAN CORPUSCULAR HGB CONC 33.5 g/dL (32.0-36.0); MEAN CORPUSCULAR VOLUME 96 fl (80-97); MONOCYTES % (AUTO) 9.3 % (3-13); PLATELET COUNT 160 10^3/uL (150-450); RED BLOOD COUNT 3.85 10^6/uL (4.35-5.55); RED CELL DISTRIBUTION WIDTH 13.4 % (11.5-14.0); SEGMENTED NEUTROPHILS % (AUTO) 49.5 % (42-78); TOTAL CELLS COUNTED % (AUTO) 100 %; WHITE BLOOD COUNT 6.6 10^3/uL (4.0-10.5)
[2018-02-15 07:13] LABS: ANION GAP 12 (5-19); BLOOD UREA NITROGEN 18 mg/dL (7-20); CALCIUM 9.3 mg/dL (8.4-10.2); CARBON DIOXIDE 26 mmol/L (22-30); CHLORIDE 104 mmol/L (98-107); GLUCOSE 117 mg/dL (75-110); POTASSIUM 3.9 mmol/L (3.6-5.0)
[2018-02-15] MEDS ORDERED: ACETAMINOPHEN 325 MG TABLET PO PRN (08:19)
[2018-02-15] MEDS: IPRATROPIUM/ALBUTEROL 0.5-2.5 MG/3 ML AMPUL NEB PRN (09:03)
[2018-02-15] MEDS ORDERED: ONDANSETRON HCL INJ/PF 4 MG/2 ML SDV IV PRN (10:00)
[2018-02-15] MEDS: ENOXAPARIN SODIUM INJ 40 MG/0.4 ML DISP.SYRIN SUBCUT SCH (10:50)
[2018-02-15] MEDS: GABAPENTIN 300 MG CAPSULE PO SCH (10:50)
[2018-02-15] MEDS: AMLODIPINE BESYLATE 10 MG TABLET PO SCH (10:50)
[2018-02-15 16:10] VITALS: BP 125/72
[2018-02-15] MEDS ORDERED: LANSOPRAZOLE 30 MG TAB.RAP.DR PO SCH (17:00)
== END 2018-02-15 17:45 | disposition home or self-care (01) ==
LOC: ER 07:27 → EH 13:29 → 5 18:43
PROVIDERS: ADMIT Family Medicine; ATTEND Family Medicine
DX: R07.9 Chest pain, unspecified (principal); R94.31 Abnormal electrocardiogram [ECG] [EKG]; F14.10 Cocaine abuse, uncomplicated; M79.602 Pain in left arm; N17.9 Acute kidney failure, unspecified; R20.2 Paresthesia of skin; R06.02 Shortness of breath; R05 Cough; F17.200 Nicotine dependence, unspecified, uncomplicated; Z82.49 Family history of ischemic heart disease and other diseases of the circulatory system; Z82.5 Family history of asthma and other chronic lower respiratory diseases
CPT/HCPCS: 93005 ×2; 99285; 36415 ×4; 82553; 82550; 83735; 84443; 85025 ×3; 85652; 86140; 80048 ×2; 80053 ×2; 84484 ×2; 80307; 84481; 80061; 93306; 72141; 71046; 71275; 93010 ×2; 94640 ×3; G0378 ×3; J1650 ×4; J2060; J7512; J7620 ×3

== ENCOUNTER 2018-03-23 05:20 | Emergency (ER) | payer OTHER ==
[2018-03-23] MEDS ORDERED: ACETAMINOPHEN 325 MG TABLET PO ONE (05:33)
[2018-03-23] MEDS ORDERED: NORMAL SALINE 1000 ML 1,000 ML IV ONE (05:33)
--- NOTE | 2018-03-23 05:35 | ER Document Report ---
ED Medical Screen (RME) - General Stated Complaint: CHEST PAIN Time Seen by Provider: 03/23/18 05:32 TRAVEL OUTSIDE OF THE [place] IN LAST 30 DAYS: No - HPI Notes: 03/23/18 05:34 Patient is a 62-year-old male with a history of hypertension, arthritis, asthma , chronic alcohol/tobacco abuse, cocaine abuse who presents to the ED complaining of left-sided chest pain since his visit in February. Patient states that the pain does not radiate and has been there constantly since his discharge. He is still eating and drinking w/o any difficulties. He is urinating normally and having normal bowel movements. Denies any headache, fever, URI, sore throat, palpitations, syncope, cough, shortness of breath, wheeze, dyspnea, abdominal pain, nausea/vomiting/diarrhea, or rash. I have treated and performed a rapid initial assessment of this patient. A comprehensive ED assessment and evaluation of the patient, analysis of test results and completion of medical decision making process will be conducted by additional ED providers. PHYSICAL EXAMINATION: GENERAL: Well-appearing, well-nourished and in no acute distress. A&Ox4. Answers questions appropriately. Chest: + moderate tenderness to the left chest wall, correlates with pain described. LUNGS: Breath sounds clear to auscultation bilaterally and equal. No wheezes rales or rhonchi. HEART: Regular rate and rhythm without murmurs, rubs, gallops. Extremities: No cyanosis, clubbing, or edema b/l. Sonido neg b/l. NEUROLOGICAL: Normal speech, normal gait. PSYCH: Normal mood, normal affect. - Related Data Allergies/Adverse Reactions: No Known Allergies Allergy (Verified 01/07/17 19:10) Past Medical History - Past Medical History Cardiac Medical History: Reports: Hx Hypertension Pulmonary Medical History: Reports: Hx Bronchitis, Hx COPD, Hx Pneumonia Neurological Medical History: Reports: Hx Cerebrovascular Accident Renal/ Medical History: Denies: Hx Peritoneal Dialysis Musculoskeltal Medical History: Reports Hx Arthritis, Reports Hx Gout Psychiatric Medical History: Reports: Hx Depression, Hx Post Traumatic Stress Disorder Past Surgical History: Reports: Hx Orthopedic Surgery - bilat shoulder, knee, ankle - Immunizations Immunizations up to date: Yes Hx Diphtheria, Pertussis, Tetanus Vaccination: Yes History of Influenza Vaccine for 08/2017 - 01/2018 Season: Refused
--- NOTE | 2018-03-23 05:51 | RADIOLOGY REPORT (SQ) ---
EXAM DESCRIPTION: Single view of the chest CLINICAL HISTORY: chest pain COMPARISON: 02/12/2018 FINDINGS: Single frontal view of the chest. Atherosclerotic calcification of the aortic arch. Heart is not enlarged. Leads overlie the chest. No consolidation, pneumothorax, or pleural effusion. No displaced rib fractures identified. Upper abdominal soft tissues are unremarkable. IMPRESSION: 1. No acute pulmonary process identified.
[2018-03-23 05:53] LABS: ABSOLUTE BASOPHILS # (AUTO) 0.1 10^3/uL (0.0-0.2); ABSOLUTE EOSINOPHILS # (AUTO) 0.4 10^3/uL (0.0-0.6); ABSOLUTE LYMPHOCYTES (AUTO) 2.4 10^3/uL (0.5-4.7); ABSOLUTE MONOCYTES (AUTO) 0.5 10^3/uL (0.1-1.4); ABSOLUTE NEUT (AUTO) 2.8 10^3/uL (1.7-8.2); BASOPHILS % (AUTO) 1.3 % (0-2); EOSINOPHILS % (AUTO) 6.2 % (0-6); HEMATOCRIT 37.5 % (37.9-51.0); HEMOGLOBIN 12.8 g/dL (13.5-17.0); LYMPHOCYTES % (AUTO) 39.3 % (13-45); MEAN CORPUSCULAR HEMOGLOBIN 32.5 pg (27.0-33.4); MEAN CORPUSCULAR VOLUME 96 fl (80-97); MONOCYTES % (AUTO) 7.9 % (3-13); PLATELET COUNT 209 10^3/uL (150-450); RED BLOOD COUNT 3.93 10^6/uL (4.35-5.55); RED CELL DISTRIBUTION WIDTH 13.6 % (11.5-14.0); SEGMENTED NEUTROPHILS % (AUTO) 45.3 % (42-78); TOTAL CELLS COUNTED % (AUTO) 100 %; WHITE BLOOD COUNT 6.2 10^3/uL (4.0-10.5)
[2018-03-23 06:09] LABS: ALBUMIN 4.4 g/dL (3.5-5.0); ALKALINE PHOSPHATASE 50 U/L (38-126); ANION GAP 11 (5-19); ASPARTATE AMINO TRANSFERASE 39 U/L (17-59); BILIRUBIN,DIRECT 0.3 mg/dL (0.0-0.4); BILIRUBIN,TOTAL 0.6 mg/dL (0.2-1.3); BLOOD UREA NITROGEN 14 mg/dL (7-20); CALCIUM 9.4 mg/dL (8.4-10.2); CARBON DIOXIDE 25 mmol/L (22-30); CHLORIDE 107 mmol/L (98-107); GLUCOSE 85 mg/dL (75-110); SODIUM 143.3 mmol/L (137-145); TOTAL PROTEIN 7.9 g/dL (6.3-8.2)
[2018-03-23 06:11] LABS: ALANINE AMINOTRANSFERASE 23 U/L (21-72); POTASSIUM 4.1 mmol/L (3.6-5.0)
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
[2018-03-23 07:51] LABS: ALCOHOL 97 mg/dL (NONE DETECTED)
--- NOTE | 2018-03-23 08:18 | EKG REPORT ---
SEVERITY:- ABNORMAL ECG - SINUS RHYTHM ST ELEVATION SUGGESTS PERICARDITIS : Confirmed by: Teri Lagunas 23-Mar-2018 05:17:50
[2018-03-23 08:49] VITALS: BP 147/84
== END 2018-03-23 08:55 | disposition home or self-care (01) ==
LOC: ER 05:20
DX: R07.89 Other chest pain (principal); F10.10 Alcohol abuse, uncomplicated; Y90.4 Blood alcohol level of 80-99 mg/100 ml; F17.210 Nicotine dependence, cigarettes, uncomplicated; I10 Essential (primary) hypertension
CPT/HCPCS: 93005; 99285; 96360; 36415; 80307; 85025; 80053; 84484; 71045; 93010; J7030

== ENCOUNTER 2018-03-26 10:23 | Emergency (ER) | payer OTHER ==
[2018-03-26 10:34] VITALS: BP 157/76
--- NOTE | 2018-03-26 11:26 | ER Document Report ---
ED Neck/Back Problem - General Chief Complaint: Neck Injury Stated Complaint: NECK PAIN Time Seen by Provider: 03/26/18 11:15 Mode of Arrival: Ambulatory Information source: Patient Notes: 62-year-old male presents to ED for complaint of pain in his neck which is causing him to have pain when he moves his neck back to the left and right. He is alert and oriented pupils equal react to light respirations regular and unlabored able to walk with a even steady gait. Becomes agitated very easily. TRAVEL OUTSIDE OF THE [place] IN LAST 30 DAYS: No - HPI Patient complains to provider of: Neck Onset: Other - A month ago getting worse Onset: Gradual Timing: Waxing and waning Quality of pain: Sharp Severity: Severe Pain Level: 5 Context: Other - Dates pain is much worse when he tries to turn his head Recent injury: No Associated symptoms: Like prior neck/back pain. denies: Incontinence, Motor loss, Numbness/tingling, Radiation to arm, Radiation to chest, Radiation to leg , Sensory loss, Unable to urinate, Lower back pain, Upper back pain Exacerbated by: Movement of neck Relieved by: Nothing Similar symptoms previously: Yes Recently seen / treated by doctor: Yes - Related Data Allergies/Adverse Reactions: No Known Allergies Allergy (Verified 01/07/17 19:10) Past Medical History - General Information source: Patient - Social History Smoking Status: Current Every Day Smoker Cigarette use (# per day): Yes Smoking Education Provided: Yes - 4 minutes Frequency of alcohol use: Heavy Drug Abuse: Marijuana Occupation: None Lives with: Spouse/Significant other Family History: Reviewed & Not Pertinent, CAD, COPD - Past Medical History Cardiac Medical History: Reports: Hx Hypertension Pulmonary Medical History: Reports: Hx Bronchitis, Hx COPD, Hx Pneumonia EENT Medical History: Reports: None Neurological Medical History: Reports: Hx Cerebrovascular Accident Endocrine Medical History: Reports: None Renal/ Medical History: Reports: None Malignancy Medical History: Reports None GI Medical History: Reports: Hx Gastritis Musculoskeltal Medical History: Reports Hx Arthritis, Reports Hx Gout, Reports Hx Musculoskeletal Deformity, Reports Hx Musculoskeletal Trauma Skin Medical History: Reports None Psychiatric Medical History: Reports: Hx Bipolar Disorder, Hx Depression, Hx Post Traumatic Stress Disorder, Hx Schizophrenia Traumatic Medical History: Reports: None Infectious Medical History: Reports: None Past Surgical History: Reports: Hx Orthopedic Surgery - bilat shoulder, knee, ankle - Immunizations Immunizations up to date: Yes Hx Diphtheria, Pertussis, Tetanus Vaccination: Yes Review of Systems - Review of Systems Constitutional: No symptoms reported EENT: No symptoms reported Cardiovascular: No symptoms reported Respiratory: No symptoms reported Gastrointestinal: No symptoms reported Genitourinary: No symptoms reported Male Genitourinary: No symptoms reported Musculoskeletal: Muscle pain, Muscle stiffness, Neck pain Skin: No symptoms reported Hematologic/Lymphatic: No symptoms reported Neurological/Psychological: No symptoms reported -: Yes All other systems reviewed and negative Physical Exam - Vital signs Vitals: Temp Pulse Resp BP Pulse Ox 98.7 F 66 16 157/76 H 96 03/26/18 10:32 03/26/18 10:32 03/26/18 10:32 03/26/18 10:32 03/26/18 10:32 Interpretation: Normal - General General appearance: Appears well, Alert - HEENT Head: Normocephalic, Atraumatic Eyes: Normal Pupils: PERRL - Respiratory Respiratory status: No respiratory distress Chest status: Nontender Breath sounds: Normal Chest palpation: Normal - Cardiovascular Rhythm: Regular Heart sounds: Normal auscultation Murmur: No - Abdominal Inspection: Normal Distension: No distension Bowel sounds: Normal Tenderness: Nontender Organomegaly: No organomegaly - Back Back: Normal, Tender, Vertebra tenderness. No: Deformity/step-off, CVA tenderness, Scars, Scoliosis, Wounds - Extremities General upper extremity: Normal inspection, Nontender, Normal color, Normal ROM , Normal temperature General lower extremity: Normal inspection, Nontender, Normal color, Normal ROM , Normal temperature, Normal weight bearing. No: Sonido's sign - Neurological Neuro grossly intact: Yes Cognition: Normal Orientation: AAOx4 [place] Coma Scale Eye Opening: Spontaneous [place] Coma Scale Verbal: Oriented Reinier Coma Scale Motor: Obeys Commands [place] Coma Scale Total: 15 Speech: Normal Motor strength normal: LUE, RUE, LLE, RLE Sensory: Normal - Psychological Associated symptoms: Normal affect, Normal mood - Skin Skin Temperature: Warm Skin Moisture: Dry Skin Color: Normal Course - Re-evaluation Re-evalutation: 03/26/18 20:47 CT of neck discussed with patient and written report given to patient. Patient was instructed to follow-up with his primary doctor and to continue with his current chronic pain management. Patient was discharged home to follow-up with his current chronic pain management. - Vital Signs Vital signs: Temp Pulse Resp BP Pulse Ox 98.7 F 66 16 157/76 H 96 03/26/18 10:32 03/26/18 10:32 03/26/18 10:32 03/26/18 10:32 03/26/18 10:32 - Diagnostic Test Radiology reviewed: Image reviewed, Reports reviewed Discharge - Discharge Clinical Impression: Neck pain, chronic Condition: Stable Disposition: HOME, SELF-CARE Instructions: Family Physicians / Practices Additional Instructions: Chronic Pain Control Stress, inactivity, and depression make pain more severe regardless of the cause of the pain. Stress and poor physical condition can cause pain such as headaches and backache. Relaxation: Rest in a quiet place with your eyes closed for 20 minutes twice daily. Concentrate on a pleasant image, or simply "feel" your breathing. Clear your mind. Stress management: Deal with your "stressors." Either take action, or eliminate the stressor from your life. Don't let things hang over you. Accept those things you can't change. Nutrition: Eat small, balanced meals -- don't skip, don't overeat. Meals should be high-carbohydrate, low-sugar, low-fat. Exercise: Exercise helps painful conditions and eases stress. Get 30 minutes of moderate exercise, five days a week. Do an activity that does not flare your pain. Precautions: Pain which continues to disrupt daily activities, or which changes in nature, requires a medical evaluation. Pain Clinic referral is available. We do not manage chronic pain in the Emergency Department. We will try to appropriately help you through an acute flare of your chronic painful condition , but for on-going chronic pain that does not improve, you will need to see your private doctor or chest painting and sealing supervisor. We do not provide repeated medication management of chronic painful conditions. If you wish, we can provide the name of local pain management physicians. Arthritis Your symptoms are due to arthritis. Arthritis is an inflammation of the joints. There are many types -- osteoarthritis (due to "wear and tear"), auto- immmune arthritis (such as rheumatoid, lupus, Kelsie's, and others), and crystal -induced arthritis (such as gout and pseudogout). The physician's examination, combined with laboratory tests, will determine the cause of your arthritis. All types of arthritis are treated with antiinflammatory medications. Other medication may be required for special types of arthritis, or if your problem does not respond to the antiinflammatory medicine. Local warmth may be helpful. Move the involved joints through the full range of motion daily. Mild exercise is usually still possible for most persons with arthritis (ask your physician). Swimming provides good exercise without damaging the joints. Contact the physician if you are worsening in any way. The disc disease noted on your CT. A written report of the CT will be given to you to follow-up with [facility]. I cannot write narcotics for a chronic pain. I have also do Tylenol and Motrin and you have stated you did not want these. You can use [id number] Aspercreme or Lidoderm patches. FOLLOW-UP CARE: If you have been referred to a physician for follow-up care, call the physician s office for an appointment as you were instructed or within the next two days. If you experience worsening or a significant change in your symptoms, notify the physician immediately or return to the Emergency Department at any time for re-evaluation. Forms: Elevated Blood Pressure, Smoking Cessation Education
--- NOTE | 2018-03-26 12:09 | RADIOLOGY REPORT (SQ) ---
EXAM DESCRIPTION: CT CERVICAL SPINE WITHOUT COMPLETED DATE/TIME: 03/26/2018 11:37 am REASON FOR STUDY: increase in pain in neck COMPARISON: MRI of the cervical spine dated 02/14/2018 TECHNIQUE: Axial images acquired through the cervical spine without intravenous contrast. Images re viewed with lung, soft tissue and bone windows. Reconstructed coronal and sagittal MPR images review ed. Images stored on PACS. All CT scanners at this facility use dose modulation, iterative reconstruction, and/or weight based d osing when appropriate to reduce radiation dose to as low as reasonably achievable (ALARA). [facility]: Dose Right [facility]: CareDose [facility]: Dose Right [facility]: Teradose 4D [facility]: Smart Surprise Ride RADIATION DOSE: CT Rad equipment meets quality standard of care and radiation dose reduction techniq ues were employed. CTDIvol: 18.6 - 25.4 mGy. DLP: 712 mGy-cm. mGy. LIMITATIONS: None. FINDINGS: ALIGNMENT: There is some loss of the normal cervical lordosis unchanged from the previous study. MINERALIZATION: Normal. VERTEBRAL BODIES: No fractures or dislocation. DISCS: There is decrease in the C3-C4 and C5-C6 disc space heights with associated osteophytic lippin g FACETS, LATERAL MASSES, POSTERIOR ELEMENTS: No fractures. No dislocation. No acute findings. HARDWARE: None in the spine. VISUALIZED RIBS: No fractures. LUNG APICES AND SOFT TISSUES: No significant or acute findings. OTHER: No other significant finding. IMPRESSION: Degenerative changes as noted above TECHNICAL DOCUMENTATION: JOB ID: [id number] Quality ID # [id number]: Final reports with documentation of one or more dose reduction techniques (e.g., Au tomated exposure control, adjustment of the mA and/or kV according to patient size, use of iterative reconstruction technique) 2010 [employer]- All Rights Reserved Reading location - IP/workstation name: [email or web address]
== END 2018-03-26 12:35 | disposition home or self-care (01) ==
LOC: ER 10:23
DX: M54.2 Cervicalgia (principal); G89.29 Other chronic pain; I10 Essential (primary) hypertension; F17.210 Nicotine dependence, cigarettes, uncomplicated; Z71.6 Tobacco abuse counseling; F12.10 Cannabis abuse, uncomplicated
CPT/HCPCS: 72125; 99284; 99406

== ENCOUNTER 2018-05-09 00:50 | Emergency (ER) | payer OTHER ==
[2018-05-09] MEDS ORDERED: IPRATROPIUM/ALBUTEROL 0.5-2.5 MG/3 ML AMPUL NEB ONE (01:08)
--- NOTE | 2018-05-09 01:10 | ER Document Report ---
ED Respiratory Problem - General Chief Complaint: Shortness Of Breath Stated Complaint: TROUBLE BREATHING Time Seen by Provider: 05/09/18 01:03 Notes: Patient is a 62-year-old male with a history of tobacco abuse and COPD that comes emergency department for chief complaint shortness of breath. He comes by EMS, given Solu-Medrol and 1 eating treatment. He states he has had worsening cough for the past few days. He states he hurts in his sides but denies specific chest, abdominal, or head pain. He denies fever. Past medical history also includes hypertension, alcohol abuse. TRAVEL OUTSIDE OF THE [place] IN LAST 30 DAYS: No - Related Data Allergies/Adverse Reactions: No Known Allergies Allergy (Verified 01/07/17 19:10) Past Medical History - General Information source: Patient - Social History Smoking Status: Current Every Day Smoker Smoking Education Provided: Yes - <3 min Lives with: Family Family History: Reviewed & Not Pertinent, CAD, COPD - Past Medical History Cardiac Medical History: Reports: Hx Hypertension Pulmonary Medical History: Reports: Hx Bronchitis, Hx COPD, Hx Pneumonia Neurological Medical History: Reports: Hx Cerebrovascular Accident Renal/ Medical History: Denies: Hx Peritoneal Dialysis GI Medical History: Reports: Hx Gastritis Musculoskeltal Medical History: Reports Hx Arthritis, Reports Hx Gout, Reports Hx Musculoskeletal Deformity, Reports Hx Musculoskeletal Trauma Psychiatric Medical History: Reports: Hx Bipolar Disorder, Hx Depression, Hx Post Traumatic Stress Disorder, Hx Schizophrenia Past Surgical History: Reports: Hx Orthopedic Surgery - bilat shoulder, knee, ankle - Immunizations Immunizations up to date: Yes Hx Diphtheria, Pertussis, Tetanus Vaccination: Yes Review of Systems - Review of Systems Constitutional: See HPI EENT: No symptoms reported Cardiovascular: No symptoms reported Respiratory: See HPI Gastrointestinal: No symptoms reported Genitourinary: No symptoms reported Male Genitourinary: No symptoms reported Musculoskeletal: No symptoms reported Skin: No symptoms reported Hematologic/Lymphatic: No symptoms reported Neurological/Psychological: No symptoms reported Physical Exam - Vital signs Vitals: Resp Pulse Ox 19 95 05/09/18 00:58 05/09/18 00:58 - Notes Notes: GENERAL: Alert. No acute distress. HEAD: Normocephalic, atraumatic. EYES: Pupils equal, round, and reactive to light. Extraocular movements intact. ENT: Oral mucosa moist, tongue midline. NECK: Full range of motion. Supple. Trachea midline. LUNGS: Expiratory wheezes and a few scattered rhonchi, congested sounding cough , no labored breathing, retractions, tachypnea. HEART: Regular rate and rhythm. No murmur ABDOMEN: Soft, non-tender. Non-distended. Bowel sounds present in all 4 quadrants. EXTREMITIES: Moves all 4 extremities spontaneously. No edema, normal radial and dorsalis pedis pulses bilaterally. No cyanosis. BACK: no cervical, thoracic, lumbar midline tenderness. No saddle anesthesia, normal distal neurovascular exam. NEUROLOGICAL: Alert and oriented x3. Normal speech. [cranial nerves II through XII grossly intact]. PSYCH: Patient slightly odd, making gestures with speaking, is oriented but has to be redirected. SKIN: Warm, dry, normal turgor. No rashes or lesions noted. Course - Re-evaluation Re-evalutation: Patient initially with expiratory wheezes and some scattered rhonchi. After breathing treatments, Solu-Medrol, magnesium wheezing resolved but patient still has a congested cough. No tachypnea, hypoxia, retractions, or signs of distress. No fever. CBC unremarkable except for mild anemia, chemistry generally unremarkable, chest x-ray does not show pneumonia. Consistent with COPD exacerbation. Discussed smoking cessation, treatment of COPD, patient states he is out of albuterol inhaler, discussed close follow-up. Patient states understanding and agreement. Stable at time of discharge. - Vital Signs Vital signs: Temp Pulse Resp BP Pulse Ox 98.1 F 15 143/74 H 97 05/09/18 05:01 05/09/18 05:01 05/09/18 05:01 05/09/18 05:01 - Laboratory Result Diagrams: 05/09/18 01:27 05/09/18 01:27 Laboratory results interpreted by me: 05/09/18 05/09/18 01:27 01:27 RBC 3.64 L Hgb 11.7 L Hct 35.1 L Monocytes % 13.7 H Eosinophils % 6.6 H Sodium 146.4 H Chloride 108 H Creatinine 1.33 H Est GFR (Non-Af Amer) 55 L Creatine Kinase 360 H Discharge - Discharge Clinical Impression: Wheezing, Shortness of breath, Cough, COPD exacerbation Condition: Stable Disposition: HOME, SELF-CARE Additional Instructions: Your evaluation and workup are most consistent with a COPD exacerbation. Use the albuterol as prescribed, take the prednisone as as prescribed, follow- up with your primary care within the next several days for reevaluation and additional management. Return if you worsen including increased difficulty breathing, spiking fever, or any other concerning or worsening symptoms. Prescriptions: Albuterol Sulfate [Proair HFA Inhalation Aerosol 8.5 gm MDI] 2 puff IH Q4H PRN # 1 mdi PRN Reason: Prednisone 60 mg PO DAILY #15 tablet Forms: Smoking Cessation Education
[2018-05-09 01:35] LABS: ABSOLUTE BASOPHILS # (AUTO) 0.1 10^3/uL (0.0-0.2); ABSOLUTE EOSINOPHILS # (AUTO) 0.4 10^3/uL (0.0-0.6); ABSOLUTE LYMPHOCYTES (AUTO) 2.1 10^3/uL (0.5-4.7); ABSOLUTE MONOCYTES (AUTO) 0.8 10^3/uL (0.1-1.4); ABSOLUTE NEUT (AUTO) 2.5 10^3/uL (1.7-8.2); BASOPHILS % (AUTO) 0.9 % (0-2); EOSINOPHILS % (AUTO) 6.6 % (0-6); HEMATOCRIT 35.1 % (37.9-51.0); HEMOGLOBIN 11.7 g/dL (13.5-17.0); MEAN CORPUSCULAR HEMOGLOBIN 32.2 pg (27.0-33.4); MEAN CORPUSCULAR HGB CONC 33.3 g/dL (32.0-36.0); MEAN CORPUSCULAR VOLUME 96 fl (80-97); MONOCYTES % (AUTO) 13.7 % (3-13); PLATELET COUNT 210 10^3/uL (150-450); RED BLOOD COUNT 3.64 10^6/uL (4.35-5.55); RED CELL DISTRIBUTION WIDTH 13.8 % (11.5-14.0); SEGMENTED NEUTROPHILS % (AUTO) 42.8 % (42-78); TOTAL CELLS COUNTED % (AUTO) 100 %; WHITE BLOOD COUNT 5.9 10^3/uL (4.0-10.5)
[2018-05-09 01:52] LABS: ALANINE AMINOTRANSFERASE 23 U/L (21-72); ALBUMIN 4.1 g/dL (3.5-5.0); ALKALINE PHOSPHATASE 66 U/L (38-126); ANION GAP 15 (5-19); ASPARTATE AMINO TRANSFERASE 48 U/L (17-59); BILIRUBIN,DIRECT 0.3 mg/dL (0.0-0.4); BILIRUBIN,TOTAL 0.3 mg/dL (0.2-1.3); BLOOD UREA NITROGEN 19 mg/dL (7-20); CARBON DIOXIDE 23 mmol/L (22-30); CHLORIDE 108 mmol/L (98-107); CREATINE KINASE 360 U/L (55-170); GLUCOSE 82 mg/dL (75-110); POTASSIUM 4.1 mmol/L (3.6-5.0); SODIUM 146.4 mmol/L (137-145); TOTAL PROTEIN 7.3 g/dL (6.3-8.2)
[2018-05-09 02:04] LABS: CREATINE KINASE MB 2.92 ng/mL (<4.55); TROPONIN I 0.017 ng/mL
--- NOTE | 2018-05-09 03:30 | RADIOLOGY REPORT (SQ) ---
EXAM DESCRIPTION: XR CHEST 1 VIEW COMPLETED DATE/TME: 05/09/2018 01:08 CLINICAL HISTORY: 62 years Male, shortness of breath COMPARISON: None. NUMBER OF VIEWS/TECHNIQUE: 1/AP FINDINGS: Adequate lung volume, clear parenchyma, normal cardiac silhouette, atherosclerosis, and intact bony thorax. IMPRESSION: No acute cardiopulmonary findings.
[2018-05-09] MEDS: MAGNESIUM SULFATE/D5W 1 GM/100 ML RTUPB IV SCH ×2 (03:53→04:17)
[2018-05-09 05:56] VITALS: BP 143/74
--- NOTE | 2018-05-09 09:03 | EKG REPORT ---
SEVERITY:- ABNORMAL ECG - SINUS RHYTHM BORDERLINE T ABNORMALITIES, ANT-LAT LEADS ST ELEVATION SUGGESTS NORMAL VARIANT : Confirmed by: Cirilo Smith MD 09-May-2018 09:02:40
== END 2018-05-09 09:07 | disposition home or self-care (01) ==
LOC: ER 00:50
DX: J44.1 Chronic obstructive pulmonary disease with (acute) exacerbation (principal); T48.6X6A Underdosing of antiasthmatics, initial encounter; Z91.128 Patient's intentional underdosing of medication regimen for other reason; Z91.14 Patient's other noncompliance with medication regimen; R05 Cough; R06.02 Shortness of breath; R52 Pain, unspecified; I10 Essential (primary) hypertension; F17.200 Nicotine dependence, unspecified, uncomplicated; D64.9 Anemia, unspecified
CPT/HCPCS: 93005; 94640; 99285; 96365; 36415; 82553; 82550; 85025; 80053; 84484; 71045; 93010; J3475; J7620

== ENCOUNTER 2018-05-09 09:52 | Emergency (ER) | payer OTHER ==
--- NOTE | 2018-05-09 10:14 | ER Document Report ---
ED Medical Screen (RME) - General Chief Complaint: ETOH Abuse Stated Complaint: ETOH ABUSE Mode of Arrival: Ambulatory Information source: Patient Notes: 62 y.o male presents to the ED after being discharged minutes before. Pt arrived earlier via EMS with complains of SOB and he was evaluated and discharged home. He reports that he came back to the ED because he wants some help with alcohol and drug abuse and believed that if he leaved here today then he would continue to drink and do drugs. He reports that he has been in an inpatient facility for alcohol and drug abuse in the past, about 3 years ago. He denies ever getting any outpatient help. I have greeted and performed a rapid initial assessment of the patient. A comprehensive ED assessment and evaluation of the patient, analysis of test results, and completion of the medical decision making process will be conducted by additional ED providers. Physical Exam: General: Alert, appears well. HEENT: Normocephalic. Atraumatic. Neck: Supple. Respiratory: No respiratory distress. Extremities: Moves all four extremities. Neurological: Normal cognition. AAOx4. Normal speech. Psychological: Normal affect. Normal Mood. Skin: Warm. Dry. Normal color. TRAVEL OUTSIDE OF THE [place] IN LAST 30 DAYS: No - Related Data Allergies/Adverse Reactions: No Known Allergies Allergy (Verified 01/07/17 19:10) Past Medical History - General Information source: Patient - Social History Family history: Reviewed & Not Pertinent - Past Medical History Cardiac Medical History: Reports: Hx Hypertension Pulmonary Medical History: Reports: Hx Bronchitis, Hx COPD, Hx Pneumonia Neurological Medical History: Reports: Hx Cerebrovascular Accident Renal/ Medical History: Denies: Hx Peritoneal Dialysis GI Medical History: Reports: Hx Gastritis Musculoskeltal Medical History: Reports Hx Arthritis, Reports Hx Gout, Reports Hx Musculoskeletal Deformity, Reports Hx Musculoskeletal Trauma Psychiatric Medical History: Reports: Hx Bipolar Disorder, Hx Depression, Hx Post Traumatic Stress Disorder, Hx Schizophrenia Past Surgical History: Reports: Hx Orthopedic Surgery - bilat shoulder, knee, ankle - Immunizations Immunizations up to date: Yes Hx Diphtheria, Pertussis, Tetanus Vaccination: Yes History of Influenza Vaccine for 08/2017 - 01/2018 Season: Refused Physical Exam - Vital signs Vitals: Temp Pulse Resp BP Pulse Ox 98.4 F 75 20 154/65 H 96 05/09/18 09:56 05/09/18 09:56 05/09/18 09:56 05/09/18 09:56 05/09/18 09:56 Course - Vital Signs Vital signs: Temp Pulse Resp BP Pulse Ox 97.9 F 62 18 153/89 H 96 05/09/18 12:43 05/09/18 12:43 05/09/18 12:43 05/09/18 12:43 05/09/18 12:43 Doctor's Discharge - Discharge Clinical Impression: Cocaine abuse Condition: Stable Disposition: HOME, SELF-CARE Additional Instructions: COCAINE ABUSE: Cocaine causes many dangerous medical problems. Problems can occur even with "usual" amounts. Cocaine affects judgement, creating a sense of invulnerability. Cocaine users often make bad decisions that seem "great" at the time. Most cocaine users eventually will be hurt by bad job performance, damaged personal relations, crime, and unsafe sexual practices. Toxic effects of cocaine can include seizures, hallucinations, delusions, high blood pressure, heart damage, or sudden . There's always the risk of a "bad batch." But heart attacks, brain hemorrhages, or cardiac arrest can occur unpredictably even with "normal" use. Injection of cocaine is risky for abscesses, endocarditis (heart infection) , pneumonia, and AIDS. Withdrawal from cocaine often causes anxiety and drug cravings. Some users become paranoid and psychotic. Many treatment programs are available, but you must make the decision to quit. Medication can be prescribed to control the symptoms of cocaine toxicity (beta blockers or benzodiazepines). Withdrawal symptoms may require tranquilizers. Follow-up Your recommended to follow-up with the local [place] for assistance in substance abuse referral. Behavior health team contacted [facility] which identified needing referral from the [place] directly for services. You are recommended to follow-up with [facility] mobile crisis to assist in continued crisis intervention as needed. If you experience worsening or a significant change in your symptoms, notify the physician immediately or return to the Emergency Department at any time for re-evaluation. Referrals: [facility] [Provider Group] - Follow up tomorrow [facility] Crisis Team [Outside] - Follow up as needed Scribe Documentation - Scribe Written by Vikye:: Lyric Herrera, Daisy 05/09/2018 1013 acting as scribe for :: Alexandre
[2018-05-09] MEDS ORDERED: IPRATROPIUM/ALBUTEROL 0.5-2.5 MG/3 ML AMPUL NEB ONE (10:50)
--- NOTE | 2018-05-09 10:56 | ER Document Report ---
ED General - General Mode of Arrival: Ambulatory Information source: Patient TRAVEL OUTSIDE OF THE [place] IN LAST 30 DAYS: No - HPI Onset: Just prior to arrival Quality of pain: No pain Associated symptoms: Shortness of breath Exacerbated by: Denies Relieved by: Denies Similar symptoms previously: Yes Recently seen / treated by doctor: Yes - General Chief Complaint: ETOH Abuse Stated Complaint: ETOH ABUSE Time Seen by Provider: 05/09/18 10:12 Notes: 62 y.o male with HTN, COPD, CVA, PTSD, bipolar schizophrenia presents to the ED after being discharged minutes before. Pt arrived earlier via EMS with complains of SOB and he was evaluated and discharged home. Patient states that he "did cocaine all morning until he became short of breath". He reports that he came back to the ED because he wants some help with alcohol and drug abuse and believed that if he leaved here today then he would continue to drink and do drugs. Patient states that he is "afraid to walk out the door". He reports that he has been in an inpatient facility for alcohol and drug abuse in the past , about 3 years ago. He denies ever getting any outpatient help. (DEJON POLLARD) - Related Data Allergies/Adverse Reactions: No Known Allergies Allergy (Verified 01/07/17 19:10) Past Medical History - General Information source: Patient - Social History Smoking Status: Current Every Day Smoker Chew tobacco use (# tins/day): No Frequency of alcohol use: Heavy Drug Abuse: Cocaine, Marijuana Lives with: Alone Family History: Reviewed & Not Pertinent, CAD, COPD Patient has suicidal ideation: No Patient has homicidal ideation: No - Past Medical History Cardiac Medical History: Reports: Hx Hypertension Pulmonary Medical History: Reports: Hx Bronchitis, Hx COPD, Hx Pneumonia Neurological Medical History: Reports: Hx Cerebrovascular Accident Renal/ Medical History: Denies: Hx Peritoneal Dialysis GI Medical History: Reports: Hx Gastritis Musculoskeltal Medical History: Reports Hx Arthritis, Reports Hx Gout, Reports Hx Musculoskeletal Deformity, Reports Hx Musculoskeletal Trauma Psychiatric Medical History: Reports: Hx Bipolar Disorder, Hx Depression, Hx Post Traumatic Stress Disorder, Hx Schizophrenia Past Surgical History: Reports: Hx Orthopedic Surgery - bilat shoulder, knee, ankle - Immunizations Immunizations up to date: Yes Hx Diphtheria, Pertussis, Tetanus Vaccination: Yes Review of Systems - Review of Systems Notes: REVIEW OF SYSTEMS: CONSTITUTIONAL : Denies fever, chills, or sweats. Denies recent illness. Denies weight loss, recent hospitalizations. EENT: Denies visual changes, eye pain. Denies nasal or sinus congestion or discharge. Denies sore throat, oral lesions, difficulty swallowing. CARDIOVASCULAR: Denies chest pain. Denies palpitations. Denies lower extremity edema. RESPIRATORY: Denies cough, cold, or chest congestion. Denies shortness of breath, wheezing. GASTROINTESTINAL: Denies abdominal pain or distention. Denies nausea, vomiting , or diarrhea. Denies blood in vomitus, stools, or per rectum. Denies black, tarry stools. Denies constipation. GENITOURINARY: Denies difficulty urinating, painful urination, frequency, blood in urine, or vaginal discharge. MUSCULOSKELETAL: Denies back or neck pain or stiffness. Denies joint pain or swelling. SKIN: Denies rash, lesions or sores. HEMATOLOGIC : Denies easy bruising or bleeding. LYMPHATIC: Denies swollen glands. NEUROLOGICAL: Denies confusion or altered mental status. Denies passing out or loss of consciousness. Denies dizziness or lightheadedness. Denies headache. Denies weakness or paralysis. Denies problems difficulty with ambulation, slurred speech. Denies sensory loss, numbness, or tingling. Denies seizures. PSYCHIATRIC: Denies suicidal ideation, or homicidal ideation. Denies visual or auditory hallucinations. (DEJON POLLARD) Physical Exam - Vital signs Vitals: Temp Pulse Resp BP Pulse Ox 98.4 F 75 20 154/65 H 96 05/09/18 09:56 05/09/18 09:56 05/09/18 09:56 05/09/18 09:56 05/09/18 09:56 - Notes Notes: PHYSICAL EXAMINATION: GENERAL: Well-appearing, well-nourished and in no acute distress. HEAD: Atraumatic, normocephalic. EYES: Pupils equal round and reactive to light, extraocular movements intact, sclera anicteric, conjunctiva are normal. ENT: Nares patent, oropharynx clear without exudates. Moist mucous membranes. NECK: Normal range of motion, supple without lymphadenopathy LUNGS: Expiratory wheezing in all lung parada. HEART: Regular rate and rhythm without murmurs ABDOMEN: Soft, nontender, nondistended abdomen. No guarding, no rebound. No masses appreciated. Musculoskeletal: Normal range of motion, no pitting or edema. No cyanosis. NEUROLOGICAL: Cranial nerves grossly intact. Normal speech, normal gait. Normal sensory, motor exams PSYCH: Normal mood, normal affect. SKIN: Warm, Dry, normal turgor, no rashes or lesions noted. (DEJON POLLARD) Course - Re-evaluation Re-evalutation: 05/09/18 10:55 52-year-old male history of bipolar schizophrenia, drug and alcohol abuse presents for the second time today with request for psychiatric evaluation, drug and alcohol detox. Denies homicidal and suicidal ideation. Psych evaluated the patient and provided him with outpatient resources. He does not meet IVC criteria at this time. Patient was discharged home in stable condition. 05/09/18 16:49 (DEJON POLLARD) - Vital Signs Vital signs: Temp Pulse Resp BP Pulse Ox 97.9 F 62 18 153/89 H 96 05/09/18 12:43 05/09/18 12:43 05/09/18 12:43 05/09/18 12:43 05/09/18 12:43 Discharge - Discharge Clinical Impression: Cocaine abuse Condition: Stable Disposition: HOME, SELF-CARE Additional Instructions: COCAINE ABUSE: Cocaine causes many dangerous medical problems. Problems can occur even with "usual" amounts. Cocaine affects judgement, creating a sense of invulnerability. Cocaine users often make bad decisions that seem "great" at the time. Most cocaine users eventually will be hurt by bad job performance, damaged personal relations, crime, and unsafe sexual practices. Toxic effects of cocaine can include seizures, hallucinations, delusions, high blood pressure, heart damage, or sudden . There's always the risk of a "bad batch." But heart attacks, brain hemorrhages, or cardiac arrest can occur unpredictably even with "normal" use. Injection of cocaine is risky for abscesses, endocarditis (heart infection) , pneumonia, and AIDS. Withdrawal from cocaine often causes anxiety and drug cravings. Some users become paranoid and psychotic. Many treatment programs are available, but you must make the decision to quit. Medication can be prescribed to control the symptoms of cocaine toxicity (beta blockers or benzodiazepines). Withdrawal symptoms may require tranquilizers. Follow-up Your recommended to follow-up with the local [place] for assistance in substance abuse referral. Behavior health team contacted [place] [facility] which identified needing referral from the [place] directly for services. You are recommended to follow-up with [facility] mobile crisis to assist in continued crisis intervention as needed. If you experience worsening or a significant change in your symptoms, notify the physician immediately or return to the Emergency Department at any time for re-evaluation. Referrals: [facility] [Provider Group] - Follow up tomorrow [facility] Crisis Team [Outside] - Follow up as needed
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
[2018-05-09 12:45] VITALS: BP 153/89
== END 2018-05-09 12:44 | disposition home or self-care (01) ==
LOC: ER 09:52
DX: F14.10 Cocaine abuse, uncomplicated (principal); F12.10 Cannabis abuse, uncomplicated; F10.10 Alcohol abuse, uncomplicated; I10 Essential (primary) hypertension; J44.9 Chronic obstructive pulmonary disease, unspecified; F17.200 Nicotine dependence, unspecified, uncomplicated
CPT/HCPCS: 94640; 99284; J7620

== ENCOUNTER 2018-05-11 15:11 | Emergency (ER) | payer OTHER ==
[2018-05-11 15:22] VITALS: BP 131/79
--- NOTE | 2018-05-11 15:49 | ER Document Report ---
ED General - General Chief Complaint: ETOH Abuse Stated Complaint: POSSIBLE ETOH Time Seen by Provider: 05/11/18 15:29 Notes: 62-year-old male here with complaints of wanting to quit his alcohol and cocaine lifestyle. He drinks six 40 ounce beers daily and uses cocaine as well. His last use was yesterday. He reports that he would like to detox in time for his birthday in June. He came here for detox. Denies any other symptoms. TRAVEL OUTSIDE OF THE [place] IN LAST 30 DAYS: No - Related Data Allergies/Adverse Reactions: No Known Allergies Allergy (Verified 01/07/17 19:10) Past Medical History - Social History Smoking Status: Current Every Day Smoker Frequency of alcohol use: Heavy Drug Abuse: Cocaine, Marijuana Family History: Reviewed & Not Pertinent, CAD, COPD Patient has suicidal ideation: No Patient has homicidal ideation: No - Past Medical History Cardiac Medical History: Reports: Hx Hypertension Pulmonary Medical History: Reports: Hx Bronchitis, Hx COPD, Hx Pneumonia Neurological Medical History: Reports: Hx Cerebrovascular Accident Renal/ Medical History: Denies: Hx Peritoneal Dialysis GI Medical History: Reports: Hx Gastritis Musculoskeltal Medical History: Reports Hx Arthritis, Reports Hx Gout, Reports Hx Musculoskeletal Deformity, Reports Hx Musculoskeletal Trauma Psychiatric Medical History: Reports: Hx Bipolar Disorder, Hx Depression, Hx Post Traumatic Stress Disorder, Hx Schizophrenia Past Surgical History: Reports: Hx Orthopedic Surgery - bilat shoulder, knee, ankle - Immunizations Immunizations up to date: Yes Hx Diphtheria, Pertussis, Tetanus Vaccination: Yes Review of Systems - Review of Systems Notes: See history of present illness for pertinent positive review of systems; otherwise all review of systems have been reviewed and are negative Physical Exam - Vital signs Vitals: Temp Pulse Resp BP Pulse Ox 97.8 F 100 14 131/79 H 97 05/11/18 15:21 05/11/18 15:21 05/11/18 15:21 05/11/18 15:21 05/11/18 15:21 - Notes Notes: PHYSICAL EXAMINATION: GENERAL: Well-appearing and in no acute distress. HEAD: Atraumatic, normocephalic. EYES: Pupils equal round and reactive to light, extraocular movements intact, sclera anicteric, conjunctiva are normal. ENT: nares patent, oropharynx clear without exudates. Moist mucous membranes. NECK: Normal range of motion, supple without lymphadenopathy LUNGS: CTAB and equal. No wheezes rales or rhonchi. HEART: Regular rate and rhythm without murmurs ABDOMEN: Soft, no tenderness. No facial grimacing/wincing upon palpation. No guarding, no rebound. EXTREMITIES: Normal range of motion, no pitting edema. No cyanosis. NEUROLOGICAL: Cranial nerves grossly intact. Normal sensory/motor exams. PSYCH: Normal mood, normal affect. SKIN: Warm, Dry, normal turgor, no rashes or lesions noted Course - Re-evaluation Re-evalutation: 05/11/18 15:48 MEDICAL DECISION MAKING: Discussed with the patient that we do not perform detox here in the ER Discussed he would need to follow-up with the [facility] and use other outpatient resources I have provided him with a sheet with multiple numbers of outpatient resources Patient understands and agrees to the plan of care - Vital Signs Vital signs: Temp Pulse Resp BP Pulse Ox 97.8 F 100 14 131/79 H 97 05/11/18 15:21 05/11/18 15:21 05/11/18 15:21 05/11/18 15:21 05/11/18 15:21 Discharge - Discharge Clinical Impression: ETOH abuse Condition: Good Disposition: HOME, SELF-CARE Additional Instructions: Please follow up outpatient with the [facility] and other resources for detox.
== END 2018-05-11 15:54 | disposition home or self-care (01) ==
LOC: ER 15:11
DX: F10.10 Alcohol abuse, uncomplicated (principal); F14.10 Cocaine abuse, uncomplicated; F12.10 Cannabis abuse, uncomplicated; F17.200 Nicotine dependence, unspecified, uncomplicated; I10 Essential (primary) hypertension
CPT/HCPCS: 99283

== ENCOUNTER 2018-06-14 15:09 | Emergency (ER) | payer OTHER ==
--- NOTE | 2018-06-14 18:32 | ER Document Report ---
ED General - General Mode of Arrival: Ambulatory Information source: Patient, Law Enforcement TRAVEL OUTSIDE OF THE [place] IN LAST 30 DAYS: No <MILADYS WASSERMAN - Last Filed: 06/14/18 18:48> <MARIA INES JOSE - Last Filed: 06/15/18 13:27> - General Chief Complaint: Laceration Stated Complaint: LACERATION Time Seen by Provider: 06/14/18 17:48 Notes: Patient is a 62 year old male with a history of AL and strokes [facility] emergency department [facility] with [employer] complaining of a laceration to the right chin. Patient states that he had a momentary loss of consciousness and fell face forward and hit his head on the concrete. At bedside patient only complains of nose and minor neck pain. Patient denies any urinary or bowel incontinence or being on blood thinners. Patient states he has had seizures in the past although he is not on any seizure medication. Patient had his last tetanus shot 2 years ago. (MILADYS WASSERMAN) - Related Data Allergies/Adverse Reactions: No Known Allergies Allergy (Verified 01/07/17 19:10) Past Medical History - General Information source: Patient, Law Enforcement - Social History Smoking Status: Former Smoker Family History: Reviewed & Not Pertinent, CAD, COPD Patient has suicidal ideation: No Patient has homicidal ideation: No - Past Medical History Cardiac Medical History: Reports: Hx Hypertension Pulmonary Medical History: Reports: Hx Bronchitis, Hx COPD, Hx Pneumonia Neurological Medical History: Reports: Hx Cerebrovascular Accident GI Medical History: Reports: Hx Gastritis Musculoskeletal Medical History: Reports Hx Arthritis, Reports Hx Gout, Reports Hx Musculoskeletal Deformity, Reports Hx Musculoskeletal Trauma Psychiatric Medical History: Reports: Hx Bipolar Disorder, Hx Depression, Hx Post Traumatic Stress Disorder, Hx Schizophrenia Past Surgical History: Reports: Hx Orthopedic Surgery - bilat shoulder, knee, ankle - Immunizations Immunizations up to date: Yes Hx Diphtheria, Pertussis, Tetanus Vaccination: Yes <MILADYS WASSERMAN - Last Filed: 06/14/18 18:48> Review of Systems - Review of Systems Constitutional: No symptoms reported EENT: No symptoms reported Cardiovascular: No symptoms reported Respiratory: No symptoms reported Gastrointestinal: No symptoms reported Genitourinary: No symptoms reported Musculoskeletal: See HPI Skin: See HPI Hematologic/Lymphatic: No symptoms reported Neurological/Psychological: See HPI, Lost consciousness -: Yes All other systems reviewed and negative <MILADYS WASSERMAN - Last Filed: 06/14/18 18:48> Physical Exam <MILADYS WASSERMAN - Last Filed: 06/14/18 18:48> <MARIA INES JOSE - Last Filed: 06/15/18 13:27> - Vital signs Vitals: Temp Pulse Resp BP Pulse Ox 98.2 F 54 L 18 142/77 H 98 06/14/18 17:59 06/14/18 17:59 06/14/18 17:59 06/14/18 17:59 06/14/18 17:59 - Notes Notes: GENERAL: Alert, interacts well. No acute distress. HEAD: Normocephalic, 3-4cm laceration to the bottom of right chin, actively bleeding. No TMD crepitus. Midline C-spine tenderness to palpation. EYES: Pupils equal, round, and reactive to light. Extraocular movements intact. ENT: Oral mucosa moist, tongue midline. Evulsion to the upper gum on right side. NECK: Full range of motion. Supple. Trachea midline. LUNGS: Clear to auscultation bilaterally, no wheezes, rales, or rhonchi. No respiratory distress. HEART: Regular rate and rhythm. No murmurs, gallops, or rubs. EXTREMITIES: Moves all 4 extremities spontaneously. NEUROLOGICAL: Alert and oriented x3. Normal speech. PSYCH: Normal affect, normal mood. SKIN: Warm, dry, normal turgor. No rashes or lesions noted. (MILADYS WASSERMAN) Course <MILADYS WASSERMAN - Last Filed: 06/14/18 18:48> - Laboratory Result Diagrams: 06/14/18 19:41 06/14/18 19:41 - EKG Interpretation by [facility] EKG shows normal: Sinus rhythm Rate: Normal Rhythm: NSR - normal axis and intevals, no change from 05/09/18 <MARIA INES JOSE - Last Filed: 06/15/18 13:27> - Re-evaluation Re-evalutation: 06/14/18 21:55 Workup shows no changes in EKG from previous labs within normal head and C- spine. Patient will be discharged back to [facility]. Stitches should be removed in 10 days. Return precautions provided. Advised outpatient follow-up for patient to have outpatient echocardiogram. (MARIA INES JOSE) - Vital Signs Vital signs: Temp Pulse Resp BP Pulse Ox 98 F 83 18 140/68 H 99 06/14/18 21:35 06/14/18 21:35 06/14/18 21:35 06/14/18 21:35 06/14/18 21:35 - Laboratory Laboratory results interpreted by me: 06/14/18 19:41 Plt Count 139 L Eosinophils % 9.4 H Procedures - Laceration/Wound Repair Face Wound length (cm): 3 Wound's Depth, Shape: Linear Laceration pre-procedure: Shur-Clens applied Anesthetic type: 1% Lidocaine Volume Anesthetic (mLs): 5 Wound explored: Clean, No foreign body removed Wound Repaired With: Sutures Suture Size/Type: 5:0, Prolene Number of Sutures: 4 Layer Closure?: No Complications: No <MARIA INES JOSE - Last Filed: 06/15/18 13:27> Discharge <MILADYS WASSERMAN - Last Filed: 06/14/18 18:48> <MARIA INES JOSE - Last Filed: 06/15/18 13:27> - Discharge Clinical Impression: Syncope and collapse Chin laceration Qualifiers: Encounter type: initial encounter Qualified Code(s): S01.81XA - Laceration without foreign body of other part of head, initial encounter Condition: Good Disposition: OTHER Additional Instructions: Please see medical staff tomorrow for reevaluation. Your stitches to be removed in 10 days. I recommend that he have an outpatient echocardiogram performed within the next week. Scribe Attestation: 06/15/18 13:27 I personally performed the services described in the documentation, reviewed and edited the documentation which was dictated to the scribe in my presence, and it accurately records my words and actions. (MARIA INES JOSE) Scribe Documentation - Scribe Written by Daisy:: Daisy Ontiveros, 06/14/2018 18:48 acting as scribe for :: Alexandre <MILADYS WASSERMAN - Last Filed: 06/14/18 18:48>
[2018-06-14 19:55] LABS: ABSOLUTE EOSINOPHILS # (AUTO) 0.6 10^3/uL (0.0-0.6); ABSOLUTE LYMPHOCYTES (AUTO) 1.8 10^3/uL (0.5-4.7); ABSOLUTE MONOCYTES (AUTO) 0.4 10^3/uL (0.1-1.4); ABSOLUTE NEUT (AUTO) 3.2 10^3/uL (1.7-8.2); BASOPHILS % (AUTO) 0.8 % (0-2); EOSINOPHILS % (AUTO) 9.4 % (0-6); HEMOGLOBIN 14.3 g/dL (13.5-17.0); LYMPHOCYTES % (AUTO) 30.3 % (13-45); MEAN CORPUSCULAR HEMOGLOBIN 32.3 pg (27.0-33.4); MEAN CORPUSCULAR HGB CONC 33.3 g/dL (32.0-36.0); MEAN CORPUSCULAR VOLUME 97 fl (80-97); MONOCYTES % (AUTO) 6.6 % (3-13); PLATELET COUNT 139 10^3/uL (150-450); RED BLOOD COUNT 4.43 10^6/uL (4.35-5.55); RED CELL DISTRIBUTION WIDTH 13.3 % (11.5-14.0); SEGMENTED NEUTROPHILS % (AUTO) 52.9 % (42-78); TOTAL CELLS COUNTED % (AUTO) 100 %; WHITE BLOOD COUNT 6.1 10^3/uL (4.0-10.5)
--- NOTE | 2018-06-14 20:02 | RADIOLOGY REPORT (SQ) ---
EXAM DESCRIPTION: CT HEAD WITHOUT COMPLETED DATE/TIME: 06/14/2018 7:42 pm REASON FOR STUDY: fall COMPARISON: 12/20/2016 TECHNIQUE: Axial images acquired through the brain without intravenous contrast. Images reviewed wi th bone, brain and subdural windows. Additional sagittal and coronal reconstructions were generated. Images stored on PACS. All CT scanners at this facility use dose modulation, iterative reconstruction, and/or weight based d osing when appropriate to reduce radiation dose to as low as reasonably achievable (ALARA). [facility]: Dose Right [facility]: CareDose [facility]: Dose Right [facility]: Teradose 4D [facility]: Smart [employer] RADIATION DOSE: CT Rad equipment meets quality standard of care and radiation dose reduction techniq ues were employed. CTDIvol: 53.2 mGy. DLP: 991 mGy-cm. mGy. LIMITATIONS: None. FINDINGS: VENTRICLES: Normal size and contour. CEREBRUM: No masses. No hemorrhage. No midline shift. No evidence for acute infarction. Normal gra y/white matter differentiation. No areas of low density in the white matter. CEREBELLUM: No masses. No hemorrhage. No alteration of density. No evidence for acute infarction. EXTRAAXIAL SPACES: No fluid collections. No masses. ORBITS AND GLOBE: No intra- or extraconal masses. Normal contour of globe without masses. CALVARIUM: No fracture. PARANASAL SINUSES: No fluid or mucosal thickening. SOFT TISSUES: No mass or hematoma. OTHER: No other significant finding. IMPRESSION: NORMAL BRAIN CT WITHOUT CONTRAST. EVIDENCE OF ACUTE STROKE: NO. COMMENT: Quality ID # 436: Final reports with documentation of one or more dose reduction techniques (e.g., Automated exposure control, adjustment of the mA and/or kV according to patient size, use of iterative reconstruction technique) TECHNICAL DOCUMENTATION: JOB ID: [id number] [employer]- All Rights Reserved Reading location - IP/workstation name: [email or web address]
--- NOTE | 2018-06-14 20:05 | RADIOLOGY REPORT (SQ) ---
EXAM DESCRIPTION: CT CERVICAL SPINE WITHOUT COMPLETED DATE/TIME: 06/14/2018 7:42 pm REASON FOR STUDY: fall COMPARISON: None. TECHNIQUE: Axial images acquired through the cervical spine without intravenous contrast. Images re viewed with lung, soft tissue and bone windows. Reconstructed coronal and sagittal MPR images review ed. Images stored on PACS. All CT scanners at this facility use dose modulation, iterative reconstruction, and/or weight based d osing when appropriate to reduce radiation dose to as low as reasonably achievable (ALARA). [facility]: Dose Right [facility]: CareDose [facility]: Dose Right [facility]: Teradose 4D [facility]: Smart [employer] RADIATION DOSE: CT Rad equipment meets quality standard of care and radiation dose reduction techniq ues were employed. CTDIvol: 18.6 mGy. DLP: 353 mGy-cm. mGy. LIMITATIONS: None. FINDINGS: ALIGNMENT: Slight reversal of lordosis. MINERALIZATION: Normal. VERTEBRAL BODIES: No fractures or dislocation. DISCS: Disc spaces are narrowed at C3-4 and at C5-6. There is irregularity of the endplates at C5-6. Small anterior and posterior osteophytes are present. FACETS, LATERAL MASSES, POSTERIOR ELEMENTS: No fractures. No dislocation. No acute findings. HARDWARE: None in the spine. VISUALIZED RIBS: No fractures. LUNG APICES AND SOFT TISSUES: No significant or acute findings. OTHER: No other significant finding. IMPRESSION: No acute findings in the cervical spine. Slight reversal of normal cervical lordosis. Degenerative disc disease. Spondylosis. TECHNICAL DOCUMENTATION: JOB ID: [id number] Quality ID # [id number]: Final reports with documentation of one or more dose reduction techniques (e.g., Au tomated exposure control, adjustment of the mA and/or kV according to patient size, use of iterative reconstruction technique) 2010 [employer]- All Rights Reserved Reading location - IP/workstation name: [email or web address]
[2018-06-14] MEDS ORDERED: LIDOCAINE 1% INJ-PF (10 MG/ML) 30 ML SDV INJ ONE (20:12)
[2018-06-14 20:20] LABS: ALANINE AMINOTRANSFERASE 23 U/L (21-72); ALBUMIN 4.3 g/dL (3.5-5.0); ALKALINE PHOSPHATASE 58 U/L (38-126); ANION GAP 11 (5-19); ASPARTATE AMINO TRANSFERASE 21 U/L (17-59); BILIRUBIN,DIRECT 0.3 mg/dL (0.0-0.4); BILIRUBIN,TOTAL 0.3 mg/dL (0.2-1.3); BLOOD UREA NITROGEN 14 mg/dL (7-20); CALCIUM 9.5 mg/dL (8.4-10.2); CARBON DIOXIDE 26 mmol/L (22-30); CHLORIDE 105 mmol/L (98-107); GLUCOSE 97 mg/dL (75-110); POTASSIUM 4.2 mmol/L (3.6-5.0); TOTAL PROTEIN 8.1 g/dL (6.3-8.2)
[2018-06-14 21:36] VITALS: BP 140/68
[2018-06-14] MEDS ORDERED: KETOROLAC TROMETHAMINE 60 MG/2 ML SDV IM ONE (21:57)
--- NOTE | 2018-06-14 23:34 | EKG REPORT ---
SEVERITY:- ABNORMAL ECG - SINUS RHYTHM ST ELEVATION SUGGESTS EARLY REPOLARISATION CHANGES : Confirmed by: Gricelda Negro MD 14-Jun-2018 23:33:32
== END 2018-06-14 22:09 | disposition other institution (70) ==
LOC: ER 15:09
PROC: 0HQ1XZZ Repair Face Skin, External Approach (ICD-10-PCS; principal; 2018-06-14)
DX: S01.81XA Laceration without foreign body of other part of head, initial encounter (principal); W18.30XA Fall on same level, unspecified, initial encounter; R51 Headache; M54.2 Cervicalgia; I10 Essential (primary) hypertension; Z86.73 Personal history of transient ischemic attack (TIA), and cerebral infarction without residual deficits
CPT/HCPCS: 93005; 99284; 96372; 36415; 85025; 80053; 84484; 70450; 72125; 93010; 12013; J1885; J3490

== ENCOUNTER 2018-11-08 11:28 | Emergency (ER) | payer OTHER ==
--- NOTE | 2018-11-08 12:40 | ER Document Report ---
ED Medical Screen (RME) - General Chief Complaint: Fall Injury Stated Complaint: FALL/RIGHT SHOULDER,HIP,NECK PAIN Time Seen by Provider: 11/08/18 12:38 TRAVEL OUTSIDE OF THE [place] IN LAST 30 DAYS: No - Related Data Allergies/Adverse Reactions: No Known Allergies Allergy (Verified 11/08/18 11:36) Past Medical History - Social History Chew tobacco use (# tins/day): No Frequency of alcohol use: None Drug Abuse: None Family history: Reviewed & Not Pertinent - Past Medical History Cardiac Medical History: Reports: Hx Hypertension Pulmonary Medical History: Reports: Hx Bronchitis, Hx COPD, Hx Pneumonia, Hx Tuberculosis Neurological Medical History: Reports: Hx Cerebrovascular Accident Renal/ Medical History: Denies: Hx Peritoneal Dialysis GI Medical History: Reports: Hx Gastritis Musculoskeltal Medical History: Reports Hx Arthritis, Reports Hx Gout, Reports Hx Musculoskeletal Deformity, Reports Hx Musculoskeletal Trauma Psychiatric Medical History: Reports: Hx Bipolar Disorder, Hx Depression, Hx Post Traumatic Stress Disorder, Hx Schizophrenia Past Surgical History: Reports: Hx Orthopedic Surgery - bilat shoulder, knee, ankle - Immunizations Immunizations up to date: Yes Hx Diphtheria, Pertussis, Tetanus Vaccination: Yes History of Influenza Vaccine for 08/2017 - 01/2018 Season: Refused Physical Exam - Vital signs Vitals: Temp Pulse Resp BP Pulse Ox 97.8 F 60 18 141/80 H 97 11/08/18 11:41 11/08/18 11:41 11/08/18 11:41 11/08/18 11:41 11/08/18 11:41 Course - Re-evaluation Re-evalutation: 11/08/18 12:39 63-year-old man presents 2 days after a fall downstairs. Pain in the midline neck, pain in the shoulder, pain in the hip. Currently being treated for tuberculosis diagnosed 6 weeks prior in a correctional facility. - Vital Signs Vital signs: Temp Pulse Resp BP Pulse Ox 97.8 F 60 18 141/80 H 97 11/08/18 11:41 11/08/18 11:41 11/08/18 11:41 11/08/18 11:41 11/08/18 11:41
--- NOTE | 2018-11-08 13:31 | RADIOLOGY REPORT (SQ) ---
EXAM DESCRIPTION: CT HEAD WITHOUT COMPLETED DATE/TIME: 11/08/2018 1:13 pm REASON FOR STUDY: fall, loc COMPARISON: 06/14/2018 TECHNIQUE: Axial images acquired through the brain without intravenous contrast. Images reviewed wi th bone, brain and subdural windows. Additional sagittal and coronal reconstructions were generated. Images stored on PACS. All CT scanners at this facility use dose modulation, iterative reconstruction, and/or weight based d osing when appropriate to reduce radiation dose to as low as reasonably achievable (ALARA). [facility]: Dose Right [facility]: CareDose [facility]: Dose Right [facility]: Teradose 4D [facility]: Smart [employer] RADIATION DOSE: CT Rad equipment meets quality standard of care and radiation dose reduction techniq ues were employed. CTDIvol: 53.2 mGy. DLP: 991 mGy-cm. mGy. LIMITATIONS: None. FINDINGS: VENTRICLES: Normal size and contour. CEREBRUM: No masses. No hemorrhage. No midline shift. No evidence for acute infarction. Normal gra y/white matter differentiation. No areas of low density in the white matter. CEREBELLUM: No masses. No hemorrhage. No alteration of density. No evidence for acute infarction. EXTRAAXIAL SPACES: No fluid collections. No masses. ORBITS AND GLOBE: No intra- or extraconal masses. Normal contour of globe without masses. CALVARIUM: No fracture. PARANASAL SINUSES: Mucoperiosteal thickening is present in the right maxillary sinus. SOFT TISSUES: No mass or hematoma. OTHER: No other significant finding. IMPRESSION: Right maxillary sinus disease no acute intracranial imaging findings. EVIDENCE OF ACUTE STROKE: NO. COMMENT: Quality ID # 436: Final reports with documentation of one or more dose reduction techniques (e.g., Automated exposure control, adjustment of the mA and/or kV according to patient size, use of iterative reconstruction technique) TECHNICAL DOCUMENTATION: JOB ID: [id number] [employer]- All Rights Reserved Reading location - IP/workstation name: [email or web address]
--- NOTE | 2018-11-08 13:36 | RADIOLOGY REPORT (SQ) ---
EXAM DESCRIPTION: CT CERVICAL SPINE WITHOUT COMPLETED DATE/TIME: 11/08/2018 1:12 pm REASON FOR STUDY: midline neck pain COMPARISON: None. TECHNIQUE: Axial images acquired through the cervical spine without intravenous contrast. Images re viewed with lung, soft tissue and bone windows. Reconstructed coronal and sagittal MPR images review ed. Images stored on PACS. All CT scanners at this facility use dose modulation, iterative reconstruction, and/or weight based d osing when appropriate to reduce radiation dose to as low as reasonably achievable (ALARA). [facility]: Dose Right [facility]: CareDose [facility]: Dose Right [facility]: Teradose 4D [facility]: Smart [employer] RADIATION DOSE: CT Rad equipment meets quality standard of care and radiation dose reduction techniq ues were employed. CTDIvol: 21.3 mGy. DLP: 466 mGy-cm. mGy. LIMITATIONS: None. FINDINGS: ALIGNMENT: Anatomic. MINERALIZATION: Normal. VERTEBRAL BODIES: No fractures or dislocation. DISCS: Disc spaces are narrowed at C3-4 and at C5-6 with anterior and posterior osteophytes at these levels. FACETS, LATERAL MASSES, POSTERIOR ELEMENTS: No fractures. No dislocation. No acute findings. HARDWARE: None in the spine. VISUALIZED RIBS: No fractures. LUNG APICES AND SOFT TISSUES: No significant or acute findings. OTHER: No other significant finding. IMPRESSION: Degenerative disc disease and spondylosis. No acute findings. TECHNICAL DOCUMENTATION: JOB ID: [id number] Quality ID # [id number]: Final reports with documentation of one or more dose reduction techniques (e.g., Au tomated exposure control, adjustment of the mA and/or kV according to patient size, use of iterative reconstruction technique) 2010 [employer]- All Rights Reserved Reading location - IP/workstation name: [email or web address]
--- NOTE | 2018-11-08 13:54 | RADIOLOGY REPORT (SQ) ---
EXAM DESCRIPTION: SHOULDER RIGHT 2 OR MORE VIEWS COMPLETED DATE/TIME: 11/08/2018 1:41 pm REASON FOR STUDY: pain post fall down stairs COMPARISON: None. NUMBER OF VIEWS: Three views. TECHNIQUE: Internal rotation, external rotation, and Y view images acquired of the right shoulder. LIMITATIONS: None. FINDINGS: MINERALIZATION: Normal. BONES: No acute fracture or dislocation. No worrisome bone lesions. Subacromial spur. JOINTS: No dislocation. Moderate right acromioclavicular osteoarthritis. VISUALIZED LUNGS AND RIBS: No pneumothorax. No rib fracture. SOFT TISSUES: No radiopaque foreign body. OTHER: No other significant finding. IMPRESSION: No fracture or dislocation of the right shoulder. Subacromial spur. Moderate right acr omioclavicular osteoarthritis. TECHNICAL DOCUMENTATION: JOB ID: [id number] [employer]- All Rights Reserved Reading location - IP/workstation name: [email or web address]
--- NOTE | 2018-11-08 13:54 | RADIOLOGY REPORT (SQ) ---
EXAM DESCRIPTION: HIP RIGHT AP/LATERAL COMPLETED DATE/TIME: 11/08/2018 1:41 pm REASON FOR STUDY: pain post fall down stairs COMPARISON: None. NUMBER OF VIEWS: Two views. TECHNIQUE: AP pelvis and additional frog-leg view of the right hip. LIMITATIONS: None. FINDINGS: MINERALIZATION: Normal. RIGHT HIP: No fracture or dislocation. No worrisome bone lesions. LEFT HIP: No fracture or dislocation. No worrisome bone lesions. PUBIS AND ISCHIUM: No fracture. PELVIS: No fracture. SACRUM: No fracture or dislocation. No worrisome bone lesions. LOWER LUMBAR SPINE: No fracture or dislocation. No worrisome bone lesions. No significant disc disea se. SOFT TISSUES: No findings. OTHER: No other significant finding. IMPRESSION: NEGATIVE STUDY OF THE RIGHT HIP. NO RADIOGRAPHIC EVIDENCE OF ACUTE INJURY. TECHNICAL DOCUMENTATION: JOB ID: [id number] [employer]- All Rights Reserved Reading location - IP/workstation name: [email or web address]
[2018-11-08] MEDS ORDERED: IBUPROFEN 600 MG TABLET PO ONE (14:33)
--- NOTE | 2018-11-08 14:37 | ER Document Report ---
ED Fall - General Chief Complaint: Fall Injury Stated Complaint: FALL/RIGHT SHOULDER,HIP,NECK PAIN Time Seen by Provider: 11/08/18 12:38 TRAVEL OUTSIDE OF THE [place] IN LAST 30 DAYS: No - HPI Notes: Patient is a 63-year-old male that presents to the emergency department for chief complaint of fall. Patient states today he was wearing socks and slipped down his stairs. He said he went down about 6 steps on his side. He did hit his head but denies any loss of consciousness. He is complaining of pain in his neck, right shoulder and right hip. The pain is worse with movement. It is relieved some with rest. He states he has chronic pain in these joints which she sees his primary care doctor for. He was able to stand up and ambulate after the fall. He denies any numbness, weakness and vision changes. Past Medical History: Arthritis, tuberculosis Past Surgical History: Reviewed in chart Social History: Denies drugs alcohol and tobacco Family History: Reviewed and noncontributory for presenting illness Allergies: Reviewed, see documented allergy list. REVIEW OF SYSTEMS: CONSTITUTIONAL : No fever No chills No diaphoresis No recent illness EENT: No vision changes No congestion No sore throat CARDIOVASCULAR: No chest pain No palpitations RESPIRATORY: No shortness of breath No cough No difficulty breathing GASTROINTESTINAL: No abdominal pain No nausea No vomiting No diarrhea GENITOURINARY: No dysuria No hematuria No difficulty urinating MUSCULOSKELETAL: No back pain leg pain Neck pain arm pain SKIN: No rashes No lesions LYMPHATIC: No swollen, enlarged glands. NEUROLOGICAL: No lightheadedness No headache No weakness No paresthesias PSYCHIATRIC: No anxiety No depression PHYSICAL EXAMINATION: Vital signs reviewed, nursing noted reviewed. GENERAL: Well-appearing, well-nourished and in no acute distress. HEAD: Atraumatic, normocephalic. EYES: Eyes appear normal, extraocular movements intact, sclera anicteric, conjunctiva are normal. ENT: nares patent, oropharynx clear without exudates. Moist mucous membranes. NECK: No midline cervical spine tenderness, mild bilateral paraspinal tenderness, normal range of motion, supple without lymphadenopathy LUNGS: Breath sounds clear to auscultation bilaterally and equal. No wheezes rales or rhonchi. HEART: Regular rate and rhythm without murmurs ABDOMEN: Soft, nontender, normoactive bowel sounds. No rebound, guarding, or rigidity. No masses appreciated. EXTREMITIES: Right shoulder anterior joint line tenderness with normal range of motion and no deformity or effusion. No right hip tenderness or decreased range of motion. Normal right knee exam. No pitting or edema. NEUROLOGICAL: No focal neurological deficits. Moves all extremities spontaneously Motor and sensory grossly intact on exam. PSYCH: Normal mood, normal affect. SKIN: Warm, Dry, normal turgor, no rashes or lesions noted on exposed skin - Related data Allergies/Adverse Reactions: No Known Allergies Allergy (Verified 11/08/18 11:36) Past Medical History - Social History Smoking Status: Former Smoker Chew tobacco use (# tins/day): No Frequency of alcohol use: None Drug Abuse: None Family History: Reviewed & Not Pertinent, CAD, COPD Patient has suicidal ideation: No Patient has homicidal ideation: No - Past Medical History Cardiac Medical History: Reports: Hx Hypertension Pulmonary Medical History: Reports: Hx Bronchitis, Hx COPD, Hx Pneumonia, Hx Tuberculosis Neurological Medical History: Reports: Hx Cerebrovascular Accident Renal/ Medical History: Denies: Hx Peritoneal Dialysis GI Medical History: Reports: Hx Gastritis Musculoskeletal Medical History: Reports Hx Arthritis, Reports Hx Gout, Reports Hx Musculoskeletal Deformity, Reports Hx Musculoskeletal Trauma Psychiatric Medical History: Reports: Hx Bipolar Disorder, Hx Depression, Hx Post Traumatic Stress Disorder, Hx Schizophrenia Past Surgical History: Reports: Hx Orthopedic Surgery - bilat shoulder, knee, ankle - Immunizations Immunizations up to date: Yes Hx Diphtheria, Pertussis, Tetanus Vaccination: Yes Physical Exam - Vital signs Vitals: Temp Pulse Resp BP Pulse Ox 97.8 F 60 18 141/80 H 97 11/08/18 11:41 11/08/18 11:41 11/08/18 11:41 11/08/18 11:41 11/08/18 11:41 Course - Re-evaluation Re-evalutation: 11/08/18 14:35 Vitals reviewed. Nursing notes reviewed. Patient has no focal neurologic deficits. He was given ibuprofen for pain. CT scan of the head and cervical spine are negative for acute injury. X-ray of his right shoulder and hip show no acute fracture. Patient does have arthritis in his shoulder and some DJD which is causing his chronic pain. He will continue to follow with his primary care doctor for pain management. He is stable at discharge. Cervical Spine CT 11/08/18 12:38 IMPRESSION: Degenerative disc disease and spondylosis. No acute findings. Head CT 11/08/18 12:38 IMPRESSION: Right maxillary sinus disease no acute intracranial imaging findings. EVIDENCE OF ACUTE STROKE: NO. Hip/Pelvis X-Ray 11/08/18 12:39 IMPRESSION: NEGATIVE STUDY OF THE RIGHT HIP. NO RADIOGRAPHIC EVIDENCE OF ACUTE INJURY. Shoulder X-Ray 11/08/18 12:39 IMPRESSION: No fracture or dislocation of the right shoulder. Subacromial spur. Moderate right acromioclavicular osteoarthritis. - Vital Signs Vital signs: Temp Pulse Resp BP Pulse Ox 97.8 F 60 18 141/80 H 97 11/08/18 11:41 11/08/18 11:41 11/08/18 11:41 11/08/18 11:41 11/08/18 11:41 Discharge - Discharge Clinical Impression: Right hip pain Closed head injury Qualifiers: Encounter type: initial encounter Qualified Code(s): S09.90XA - Unspecified injury of head, initial encounter Right shoulder pain Qualifiers: Chronicity: acute Qualified Code(s): M25.511 - Pain in right shoulder Condition: Stable Disposition: HOME, SELF-CARE Instructions: Arthritis ([facility]), Head Injury Precautions ([facility]) Additional Instructions: Please return to the emergency department if you have any worsening, or concern of your symptoms. Please return to the emergency department if you develop chest pain, difficulty breathing, severe abdominal pain, or ongoing vomiting. Please follow-up with your primary care physician in 2-3 days and any other recommended physicians. If prescribed, take all medications as directed. If you have any questions or concerns do not hesitate to return the emergency department for evaluation. Continue to take ibuprofen and Tylenol at home as needed for your pain. Follow with your primary care doctor for further evaluation. Return to the emergency room if you develop any new numbness, weakness, vision changes, severe headache or intractable vomiting. Referrals: [facility] [Provider Group] - Follow up in 3-5 days
[2018-11-08 15:18] VITALS: BP 146/90
== END 2018-11-08 15:18 | disposition home or self-care (01) ==
LOC: ER 11:28
DX: S09.90XA Unspecified injury of head, initial encounter (principal); M25.511 Pain in right shoulder; M25.551 Pain in right hip; M54.2 Cervicalgia; W10.9XXA Fall (on) (from) unspecified stairs and steps, initial encounter; I10 Essential (primary) hypertension; J44.9 Chronic obstructive pulmonary disease, unspecified; Z86.73 Personal history of transient ischemic attack (TIA), and cerebral infarction without residual deficits
CPT/HCPCS: 70450; 72125; 99284